=== PATIENT | female | born 1975 | race Two or more races ===

== ENCOUNTER 2021-08-14 12:33 | Inpatient (IN) | payer MEDICAID, OTHER ==
[~2021-08-14] VITALS: Ht 162.6 cm; Wt 118.8 kg
[2021-08-14 14:14] LABS: Basophils # (auto) 0.1 10 ^3/uL (0-0.2); Basophils % (auto) 1.2 % (0.0-2.0); Eosinophils # (auto) 0.1 10 ^3/uL (0-0.8); Eosinophils % (auto) 1.5 % (0.0-7.0); Hematocrit 42.3 % (36.0-46.0); Hemoglobin 13.4 g/dL (12.2-16.2); Lymphocytes # (auto) 1.3 10 ^3/uL (0.4-5.4); Mean Corpuscular Hemoglobin 26.2 pg (28.0-32.0); Mean Corpuscular Hgb Conc. 31.7 g/dL (32.0-36.0); Mean Corpuscular Volume 82.7 fL (80.0-100.0); Monocytes # (auto) 0.8 10 ^3/uL (0-1.3); Monocytes % (auto) 11.6 % (0.0-12.0); Neutrophils # (auto) 4.7 10 ^3/uL (1.6-8.6); Neutrophils % (auto) 66.7 % (37.0-80.0); Nucleated Red Blood Cells % 0.1 %; Red Blood Cells 5.11 10^6/uL (4.0-5.20); Red Cell Distribution Width 18.5 % (11.8-14.3); White Blood Cell 7.1 10^3/uL (4.4-10.8)
[2021-08-14 14:55] LABS: Calcium 8.8 mg/dL (8.5-10.1)
[2021-08-14 15:03] LABS: Albumin 2.9 g/dL (3.4-5.0); BUN/Creatinine Ratio 10.5; Bilirubin, Total 1.8 mg/dL (0.2-1.0); Total Protein 7.2 g/dL (6.4-8.2)
[2021-08-14] MEDS ORDERED: MORPHINE SULFATE INJECTION 2 MG/ML SYRG IV PRN ×2 (19:15→19:45)
[2021-08-14] MEDS ORDERED: POTASSIUM CHLORIDE 40 MEQ, LIDOCAINE 1% (LOCAL ANESTH.) 4 ML in SODIUM CHL 0.9% 250 ML IV ONE (19:15)
[2021-08-14] MEDS ORDERED: NITROGLYCERIN 0.4 MG SL TAB SL PRN ×2 (19:15→19:45)
[2021-08-14] MEDS ORDERED: ENOXAPARIN SOD 120 MG/0.8 ML SYRINGE SC ONE (19:15)
[2021-08-14] MEDS ORDERED: FUROSEMIDE 100 MG/10ML VIAL IV ONE (19:30)
[2021-08-14] MEDS ORDERED: MORPHINE SULFATE INJECTION 2 MG/ML SYRG IV ONE (19:30)
[2021-08-14] MEDS ORDERED: HYDROcodone-ACET 5/325MG TAB PO PRN (19:45)
[2021-08-14] MEDS ORDERED: ASPirin 81 mg TAB PO ONE (19:45)
[2021-08-14] MEDS ORDERED: DOCUSATE SOD 100 MG CAP PO PRN (19:45)
[2021-08-14] MEDS ORDERED: METOPROLOL SUCCINATE XL 50 MG TAB PO ONE (19:45)
[2021-08-14] MEDS ORDERED: FAMOTIDINE (10MG/ML) 2ML VL IV ONE (19:45)
[2021-08-14] MEDS ORDERED: diphenhdrAMINE HCL 50 MG/1 ML VL IV ONE (19:45)
[2021-08-14] MEDS ORDERED: ALUM & MAG HYDROX-SIMETH LIQ(MAALOX) 30 ML PO PRN (19:45)
[2021-08-14] MEDS ORDERED: BENAZEPRIL HCL 10 MG TAB PO ONE (19:45)
[2021-08-14] MEDS ORDERED: ATORVASTATIN 20 MG TAB PO ONE (19:45)
[2021-08-14] MEDS: FAMOTIDINE (10MG/ML) 2ML VL IV SCH (22:00)
[2021-08-14] MEDS: ATORVASTATIN 20 MG TAB PO SCH (22:00)
[2021-08-14] MEDS: POTASSIUM CHL 20 Meq TABLET PO SCH (22:00)
[2021-08-14] MEDS: NEOMYCIN-BACITRACIN-POLYM 15GM TOP OINT TOP SCH (22:00)
[2021-08-14 22:19] LABS: Urine Bacteria NONE SEEN /hpf (None Seen); Urine Blood Negative /uL (Negative); Urine Specific Gravity 1.007 (1.001-1.035); Urine WBC 2 /hpf (0 - 5)
[2021-08-14 22:30] LABS: Amphetamine Screen, Urine NEGATIVE (NEGATIVE); Barbiturate Scree,Urine NEGATIVE (NEGATIVE); Benzodiazephine Screen, Urine NEGATIVE (NEGATIVE); Cannabinoid Screen, Urine NEGATIVE (NEGATIVE); Cocaine Screen, Urine NEGATIVE (NEGATIVE); Opiate Scree,Urine NEGATIVE (NEGATIVE); Phencyclidine Screen, Urine NEGATIVE (NEGATIVE)
[2021-08-14 23:26] VITALS: BP 107/69
[2021-08-14] MEDS: MORPHINE SULFATE INJECTION 2 MG/ML SYRG IV PRN (23:50)
[2021-08-15] VITALS: BP 107/69
[2021-08-15] MEDS ORDERED: CARV6.2551 PO (03:02)
[2021-08-15] MEDS ORDERED: FURO40TA4 PO (03:02)
[2021-08-15] MEDS ORDERED: LISI-275 PO (03:02)
[2021-08-15] MEDS ORDERED: ATOR20TA50 PO (03:02)
[2021-08-15] MEDS: ONDANSETRON HCL 4 MG/2 ML VIAL IV PRN (04:59)
[2021-08-15 05:00] VITALS: BP 123/68
[2021-08-15 05:43] LABS: Basophils # (auto) 0.1 10 ^3/uL (0-0.2); Hemoglobin 13.7 g/dL (12.2-16.2); Lymphocytes # (auto) 1.8 10 ^3/uL (0.4-5.4)
[2021-08-15 05:46] LABS: Basophils % (auto) 1.5 % (0.0-2.0); Eosinophils # (auto) 0 10 ^3/uL (0-0.8); Eosinophils % (auto) 0.7 % (0.0-7.0); Hematocrit 43.5 % (36.0-46.0); Lymphocytes % (auto) 25.2 % (10.0-50.0); Mean Corpuscular Hemoglobin 26.3 pg (28.0-32.0); Mean Corpuscular Hgb Conc. 31.4 g/dL (32.0-36.0); Mean Corpuscular Volume 83.8 fL (80.0-100.0); Monocytes % (auto) 14.3 % (0.0-12.0); Neutrophils % (auto) 58.3 % (37.0-80.0); Nucleated Red Blood Cells % 0.4 %; Red Blood Cells 5.19 10^6/uL (4.0-5.20); Red Cell Distribution Width 18.5 % (11.8-14.3)
[2021-08-15 05:51] LABS: Albumin 2.7 g/dL (3.4-5.0); Calcium 8.1 mg/dL (8.5-10.1)
[2021-08-15 05:52] LABS: INR 1.6 (0.9-1.15); Partial Thromboplastin Time 28.5 sec (23.6-33.0)
[2021-08-15 05:56] LABS: BUN/Creatinine Ratio 10.6; Bilirubin, Total 2.4 mg/dL (0.2-1.0); Magnesium 2.3 mg/dL (1.6-2.6); Phosphorus 3.4 mg/dL (2.5-4.90); Total Protein 7.4 g/dL (6.4-8.2); Uric Acid 10.4 mg/dL (2.6-6.0)
[2021-08-15] MEDS: FUROSEMIDE 40 MG/4 ML VIAL IV SCH ×2 (06:22→17:53)
[2021-08-15 08:43] VITALS: BP 93/57
[2021-08-15] MEDS: POTASSIUM CHL 20 Meq TABLET PO SCH ×2 (10:32→21:06)
[2021-08-15] MEDS: FAMOTIDINE (10MG/ML) 2ML VL IV SCH ×2 (10:32→21:05)
[2021-08-15] MEDS: ASPirin 81 mg TAB PO SCH (10:32)
[2021-08-15] MEDS: BENAZEPRIL HCL 10 MG TAB PO SCH (10:32)
[2021-08-15] MEDS: NEOMYCIN-BACITRACIN-POLYM 15GM TOP OINT TOP SCH ×2 (11:06→21:06)
[2021-08-15 13:00] VITALS: BP 113/89
[2021-08-15 16:42] VITALS: BP 99/76
[2021-08-15] MEDS: MORPHINE SULFATE INJECTION 2 MG/ML SYRG IV PRN ×2 (17:02→23:23)
[2021-08-15] MEDS: LORazepam 0.5 MG TAB PO PRN (17:27)
[2021-08-15] MEDS: ATORVASTATIN 20 MG TAB PO SCH (21:06)
[2021-08-15 22:00] VITALS: BP 101/68
[2021-08-16 05:00] VITALS: BP 125/76
[2021-08-16] MEDS: FUROSEMIDE 40 MG/4 ML VIAL IV SCH ×2 (06:10→18:04)
[2021-08-16] MEDS: LORazepam 0.5 MG TAB PO PRN ×2 (08:58→21:10)
[2021-08-16] MEDS: MORPHINE SULFATE INJECTION 2 MG/ML SYRG IV PRN (08:58)
[2021-08-16] MEDS: POTASSIUM CHL 20 Meq TABLET PO SCH ×2 (08:59→22:50)
[2021-08-16] MEDS: ASPirin 81 mg TAB PO SCH (08:59)
[2021-08-16] MEDS: SACUBITRIL-VALSARTAN 24mg/26mg TAB PO SCH ×2 (08:59→22:50)
[2021-08-16] MEDS: BENAZEPRIL HCL 10 MG TAB PO SCH (08:59)
[2021-08-16 09:00] VITALS: BP 130/93
[2021-08-16] MEDS: NEOMYCIN-BACITRACIN-POLYM 15GM TOP OINT TOP SCH ×2 (09:07→22:50)
[2021-08-16] MEDS: FAMOTIDINE (10MG/ML) 2ML VL IV SCH ×2 (10:55→22:49)
[2021-08-16 13:00] VITALS: BP 127/90
[2021-08-16 16:59] VITALS: BP 146/78
[2021-08-16 22:00] VITALS: BP 96/69
[2021-08-16] MEDS: ATORVASTATIN 20 MG TAB PO SCH (22:50)
[2021-08-17] VITALS (7 sets, daily range): BP systolic 91–137; BP diastolic 60–79
[2021-08-17] MEDS: FUROSEMIDE 40 MG/4 ML VIAL IV SCH ×2 (06:19→17:28)
[2021-08-17] MEDS: POTASSIUM CHL 20 Meq TABLET PO SCH ×2 (09:47→21:09)
[2021-08-17] MEDS: SACUBITRIL-VALSARTAN 24mg/26mg TAB PO SCH ×2 (09:47→21:55)
[2021-08-17] MEDS: ASPirin 81 mg TAB PO SCH (09:47)
[2021-08-17] MEDS: BENAZEPRIL HCL 10 MG TAB PO SCH (09:48)
[2021-08-17] MEDS: FAMOTIDINE (10MG/ML) 2ML VL IV SCH ×2 (09:48→21:09)
[2021-08-17] MEDS: NEOMYCIN-BACITRACIN-POLYM 15GM TOP OINT TOP SCH ×2 (09:50→21:09)
[2021-08-17 09:57] LABS: Urine Bacteria NONE SEEN /hpf (None Seen); Urine Blood Negative /uL (Negative); Urine Specific Gravity 1.003 (1.001-1.035); Urine WBC 2 /hpf (0 - 5)
[2021-08-17] MEDS ORDERED: IOHEXOL 350 MG/ML 100ML IJ ONE (10:38)
[2021-08-17] MEDS ORDERED: LIDOCAINE 2%HCL (LOCAL ANESTH.) INJ 20ML MDV ONE (10:38)
[2021-08-17] MEDS ORDERED: SODIUM CHL 0.9% 0 ML ONE (10:52)
[2021-08-17] MEDS ORDERED: MIDAZOLAM HCL 2MG/2ML 2ml VIAL (1mg/ml) ONE (10:52)
[2021-08-17] MEDS ORDERED: fentaNYL CITRATE 100 MCG/2 ML VL ONE (10:52)
[2021-08-17] MEDS ORDERED: ANGIOMAX 250 MG VIAL IV ONE (10:52)
[2021-08-17] MEDS ORDERED: HYDROcodone-ACET 5/325MG TAB PO PRN (11:45)
[2021-08-17] MEDS ORDERED: ACETAMINOPHEN 500 MG TAB PO PRN (11:45)
[2021-08-17] MEDS: diphenhdrAMINE HCL 50 MG/1 ML VL IV PRN (20:21)
[2021-08-17] MEDS ORDERED: NEOMYCIN-BACITRACIN-POLYM 15GM TOP OINT TOP ONE (20:49)
[2021-08-17] MEDS: LORazepam 0.5 MG TAB PO PRN ×2 (21:09→21:47)
[2021-08-17] MEDS: ATORVASTATIN 20 MG TAB PO SCH (21:09)
[2021-08-17] MEDS: CARVEDILOL 12.5 MG TAB PO SCH (21:54)
[2021-08-18 05:00] VITALS: BP 103/69
[2021-08-18] MEDS: FUROSEMIDE 40 MG/4 ML VIAL IV SCH ×2 (06:04→17:26)
[2021-08-18] MEDS: diphenhdrAMINE HCL 50 MG/1 ML VL IV PRN (06:05)
[2021-08-18 09:00] VITALS: BP 105/77
[2021-08-18] MEDS: SACUBITRIL-VALSARTAN 24mg/26mg TAB PO SCH ×2 (10:14→21:06)
[2021-08-18] MEDS: ASPirin 81 mg TAB PO SCH (10:14)
[2021-08-18] MEDS: CARVEDILOL 12.5 MG TAB PO SCH ×2 (10:15→21:07)
[2021-08-18] MEDS: FAMOTIDINE (10MG/ML) 2ML VL IV SCH ×2 (10:15→21:07)
[2021-08-18] MEDS: NEOMYCIN-BACITRACIN-POLYM 15GM TOP OINT TOP SCH ×2 (10:15→21:17)
[2021-08-18 11:44] LABS: BUN/Creatinine Ratio 15.9; Calcium 8.1 mg/dL (8.5-10.1); Potassium 3.9 mmol/L (3.5-5.1)
[2021-08-18] MEDS: POTASSIUM CHL 20 Meq TABLET PO SCH ×2 (12:15→21:07)
[2021-08-18 13:00] VITALS: BP 108/80
[2021-08-18 16:33] VITALS: BP 100/57
[2021-08-18] MEDS: ATORVASTATIN 20 MG TAB PO SCH (21:06)
[2021-08-18] MEDS: LORazepam 0.5 MG TAB PO PRN (21:06)
[2021-08-18] MEDS: ONDANSETRON HCL 4 MG/2 ML VIAL IV PRN (21:08)
[2021-08-18 22:00] VITALS: BP 103/88
[2021-08-19 05:00] VITALS: BP 95/69
[2021-08-19] MEDS: FUROSEMIDE 40 MG/4 ML VIAL IV SCH ×2 (06:00→18:00)
[2021-08-19 09:19] VITALS: BP 99/72
[2021-08-19] MEDS: CARVEDILOL 3.125 MG TAB PO SCH ×2 (09:30→22:00)
[2021-08-19] MEDS: ASPirin 81 mg TAB PO SCH (09:34)
[2021-08-19] MEDS: FAMOTIDINE (10MG/ML) 2ML VL IV SCH ×2 (09:34→22:02)
[2021-08-19] MEDS: SACUBITRIL-VALSARTAN 24mg/26mg TAB PO SCH ×2 (09:34→22:00)
[2021-08-19] MEDS: POTASSIUM CHL 20 Meq TABLET PO SCH (09:34)
[2021-08-19] MEDS: NEOMYCIN-BACITRACIN-POLYM 15GM TOP OINT TOP SCH ×2 (11:42→22:00)
[2021-08-19 12:30] VITALS: BP 94/69
[2021-08-19 16:35] VITALS: BP 106/80
[2021-08-19] MEDS: ATORVASTATIN 20 MG TAB PO SCH (22:01)
[2021-08-19] MEDS: diphenhdrAMINE HCL 50 MG/1 ML VL IV PRN (22:03)
[2021-08-19 22:31] VITALS: BP 101/68
[2021-08-20] MEDS: LORazepam 0.5 MG TAB PO PRN (00:10)
[2021-08-20 05:00] VITALS: BP 117/72
[2021-08-20] MEDS: FUROSEMIDE 40 MG/4 ML VIAL IV SCH (05:48)
[2021-08-20 09:00] VITALS: BP 114/74
[2021-08-20] MEDS: ASPirin 81 mg TAB PO SCH (09:40)
[2021-08-20] MEDS: FAMOTIDINE (10MG/ML) 2ML VL IV SCH (09:40)
[2021-08-20] MEDS: NEOMYCIN-BACITRACIN-POLYM 15GM TOP OINT TOP SCH (09:41)
[2021-08-20] MEDS: SACUBITRIL-VALSARTAN 24mg/26mg TAB PO SCH (09:41)
[2021-08-20] MEDS: CARVEDILOL 3.125 MG TAB PO SCH (09:41)
[2021-08-20 12:18] LABS: Hepatitis A Ab IgM Negative
[2021-08-20 13:00] VITALS: BP 91/66
[2021-08-20 13:18] LABS: Hepatitis C Antibody Negative (Negative)
[2021-08-20 13:19] LABS: Hepatitis B Core IgM Negative
== END 2021-08-20 14:33 | disposition home or self-care (01) | DRG 190 ==
LOC: ER 12:33 → TELE 19:10 → TELE-CENTR 23:26
PROVIDERS: ADMIT Hospitalist; ATTEND Family Medicine
PROC: 4A023N7 Measurement of Cardiac Sampling and Pressure, Left Heart, Percutaneous Approach (ICD-10-PCS; principal; 2021-08-17)
PROC: B2111ZZ Fluoroscopy of Multiple Coronary Arteries using Low Osmolar Contrast (ICD-10-PCS; 2021-08-17)
PROC: B2151ZZ Fluoroscopy of Left Heart using Low Osmolar Contrast (ICD-10-PCS; 2021-08-17)
DX: I21.4 Non-ST elevation (NSTEMI) myocardial infarction (principal); J96.01 Acute respiratory failure with hypoxia; I50.23 Acute on chronic systolic (congestive) heart failure; E66.01 Morbid (severe) obesity due to excess calories; E87.6 Hypokalemia; E78.00 Pure hypercholesterolemia, unspecified; F10.10 Alcohol abuse, uncomplicated; F15.10 Other stimulant abuse, uncomplicated; F41.9 Anxiety disorder, unspecified; Z20.822 Contact with and (suspected) exposure to COVID-19; I13.0 Hypertensive heart and chronic kidney disease with heart failure and stage 1 through stage 4 chronic kidney disease, or unspecified chronic kidney disease; I42.7 Cardiomyopathy due to drug and external agent; N18.2 Chronic kidney disease, stage 2 (mild); Z91.19 Patient's noncompliance with other medical treatment and regimen; Z68.42 Body mass index [BMI] 45.0-49.9, adult
CPT/HCPCS: 36415; 36600; 71045; 76705; 80048; 80053; 80061; 80074; 80307; 81001; 81025; 82306; 82805; 83036; 83735; 83880; 84100; 84443; 84484; 84550; 85025; 85379; 85610; 85730; 87040; 87086; 87426; 93005; 93306; 93458; 93970; 96365; 96372; 96375; 97116; 97162; 97530; 99152; G0378; J2001; J2250; J2405; J3490

== ENCOUNTER 2021-10-01 22:14 | Emergency (ER) | payer MEDICAID ==
[~2021-10-01] VITALS: Ht 165.1 cm; Wt 113.4 kg
[~2021-10-01 22:14] MED LIST: ATOR20TA50 PO; CARV6.2551 PO; FURO40TA4 PO; LISI-275 PO
[2021-10-02] MEDS ORDERED: CEPH-509 PO (01:29)
[2021-10-02] MEDS ORDERED: CLIN300C8 PO (01:29)
[2021-10-02 02:16] LABS: Basophils # (auto) 0 10 ^3/uL (0-0.2); Basophils % (auto) 0.3 % (0.0-2.0); Eosinophils # (auto) 0.2 10 ^3/uL (0-0.8); Hemoglobin 12.5 g/dL (12.2-16.2); Mean Corpuscular Volume 81.2 fL (80.0-100.0); Nucleated Red Blood Cells % 0.1 %
[2021-10-02 02:20] LABS: Eosinophils % (auto) 1.2 % (0.0-7.0); Hematocrit 40.1 % (36.0-46.0); Lymphocytes # (auto) 0.9 10 ^3/uL (0.4-5.4); Lymphocytes % (auto) 6.1 % (10.0-50.0); Mean Corpuscular Hemoglobin 25.4 pg (28.0-32.0); Mean Corpuscular Hgb Conc. 31.2 g/dL (32.0-36.0); Monocytes # (auto) 0.6 10 ^3/uL (0-1.3); Monocytes % (auto) 4.5 % (0.0-12.0); Neutrophils # (auto) 12.3 10 ^3/uL (1.6-8.6); Neutrophils % (auto) 87.9 % (37.0-80.0); Red Blood Cells 4.93 10^6/uL (4.0-5.20)
[2021-10-02 02:34] LABS: Potassium 3.4 mmol/L (3.5-5.1)
[2021-10-02 02:37] LABS: Red Cell Distribution Width 21.2 % (11.8-14.3)
[2021-10-02 02:38] LABS: Albumin 3.2 g/dL (3.4-5.0); Bilirubin, Total 2.6 mg/dL (0.2-1.0); Calcium 8.9 mg/dL (8.5-10.1)
[2021-10-02 05:57] VITALS: BP 117/85
== END 2021-10-02 05:57 | disposition home or self-care (01) ==
LOC: ER 22:16
DX: L03.116 Cellulitis of left lower limb (principal); F10.129 Alcohol abuse with intoxication, unspecified; Y90.9 Presence of alcohol in blood, level not specified; Z88.0 Allergy status to penicillin
CPT/HCPCS: 36415; 80053; 83605; 85025; 87040; 93971

== ENCOUNTER 2022-10-06 10:19 | Inpatient (IN) | payer MEDICAID ==
[~2022-10-06] VITALS: Ht 167.6 cm; Wt 109.5 kg
[~2022-10-06 10:19] MED LIST changes: +CEPH-509 PO; +CLIN300C8 PO
[2022-10-06 10:33] LABS: Basophils # (auto) 0.1 10 ^3/uL (0-0.2); Basophils % (auto) 0.7 % (0.0-2.0); Eosinophils # (auto) 0.1 10 ^3/uL (0-0.8); Hemoglobin 13.3 g/dL (12.2-16.2); Lymphocytes # (auto) 1.2 10 ^3/uL (0.4-5.4); Mean Corpuscular Hemoglobin 28.7 pg (28.0-32.0); Mean Corpuscular Hgb Conc. 32.5 g/dL (32.0-36.0); Mean Corpuscular Volume 88.3 fL (80.0-100.0); Monocytes # (auto) 0.6 10 ^3/uL (0-1.3); Monocytes % (auto) 4.5 % (0.0-12.0); Neutrophils # (auto) 11.1 10 ^3/uL (1.6-8.6); Neutrophils % (auto) 84.8 % (37.0-80.0); Nucleated Red Blood Cells % 0.1 %; Red Blood Cells 4.65 10^6/uL (4.0-5.20); Red Cell Distribution Width 16.6 % (11.8-14.3); White Blood Cell 13.1 10^3/uL (4.4-10.8)
[2022-10-06 10:51] LABS: Albumin 3.1 g/dL (3.4-5.0); Calcium 9.2 mg/dL (8.5-10.1); Potassium 4.8 mmol/L (3.5-5.1)
[2022-10-06 10:55] LABS: BUN/Creatinine Ratio 14.4
[2022-10-06 10:57] LABS: Total Protein 7.7 g/dL (6.4-8.2)
[2022-10-06 11:06] LABS: Urine Bacteria NONE SEEN /hpf (None Seen); Urine Blood Negative /uL (Negative); Urine Mucus FEW (None Seen); Urine WBC 53 /hpf (0 - 5)
[2022-10-06] MEDS ORDERED: ASPirin 325 MG TAB PO ONE (11:15)
[2022-10-06] MEDS ORDERED: NITROGLYCERIN 0.4 MG SL TAB SL ONE (11:30)
[2022-10-06 11:41] LABS: Alcohol, Urine < 3.0 mg/dL (0-10); Amphetamine Screen, Urine NEGATIVE (NEGATIVE); Barbiturate Scree,Urine NEGATIVE (NEGATIVE); Benzodiazephine Screen, Urine NEGATIVE (NEGATIVE); Cannabinoid Screen, Urine NEGATIVE (NEGATIVE); Cocaine Screen, Urine NEGATIVE (NEGATIVE); Opiate Scree,Urine NEGATIVE (NEGATIVE); Phencyclidine Screen, Urine NEGATIVE (NEGATIVE)
[2022-10-06] MEDS: MORPHINE SULFATE 4 MG/ML SYR/VIAL IV ONE ×2 (12:55→13:06)
[2022-10-06] MEDS ORDERED: MORPHINE SULFATE 4 MG/ML SYR/VIAL ONE (13:05)
[2022-10-06] MEDS ORDERED: NITROGLYCERIN 50MG/250ML 250 ML IV ONE (13:30)
[2022-10-06] MEDS ORDERED: METOPROLOL TARTRATE 1MG/1ML-5ML VIAL IV ONE (13:45)
[2022-10-06] MEDS ORDERED: ATORVASTATIN 20 MG TAB PO ONE (14:15)
[2022-10-06] MEDS ORDERED: HEPARIN SODIUM (PORCINE) 5000 UNITS/ML 1ML VIAL IV ONE (14:15)
[2022-10-06] MEDS ORDERED: METOPROLOL TARTRATE 50 MG TAB PO ONE (14:15)
[2022-10-06] MEDS ORDERED: CLOPIDOGREL BISULFATE 75 MG TAB PO ONE (14:15)
[2022-10-06] MEDS ORDERED: SACU1TAB PO (17:12)
[2022-10-06] MEDS ORDERED: POTA-167 PO (17:12)
[2022-10-06] MEDS ORDERED: HEPARIN DRIP/D5W 100UNITS/ML 250 ML IV SCH ×2 (17:15→17:45)
[2022-10-06] MEDS ORDERED: FUROSEMIDE 20 MG/2 ML VIAL IV ONE (17:15)
[2022-10-06] MEDS ORDERED: ONDANSETRON HCL 4 MG/2 ML VIAL IV ONE (17:15)
[2022-10-06] MEDS ORDERED: IOHEXOL 350 MG/ML 100ML IJ ONE (17:26)
[2022-10-06] MEDS ORDERED: NITROGLYCERIN 0.4 MG SL TAB SL PRN (18:00)
[2022-10-06] MEDS ORDERED: MORPHINE SULFATE INJ 2 MG/ml SYRG IV PRN (18:00)
[2022-10-06] MEDS ORDERED: HYDROcodone-ACET 5/325MG TAB PO PRN (18:00)
[2022-10-06 18:01] LABS: Partial Thromboplastin Time 28.2 sec (24.6-33.4)
[2022-10-06 18:29] LABS: Cholesterol 202 mg/dL (< 200)
[2022-10-06 18:31] LABS: HDL Cholesterol 61 mg/dL (40-59); LDL Cholesterol 131 mg/dL (< 100); Triglycerides 94 mg/dL (< 150)
[2022-10-06] MEDS: ONDANSETRON HCL 4 MG/2 ML VIAL IV PRN (20:42)
[2022-10-06] MEDS: MORPHINE SULFATE INJ 2 MG/ml SYRG IV PRN (20:46)
[2022-10-06] MEDS: AZTREONAM 1GM INJ 0.5 GM in D5W 5% 50 ML IV SCH ×2 (20:59→22:00)
[2022-10-06] MEDS ORDERED: TEMAZEPAM 15 MG CAP PO ONE (21:15)
[2022-10-06] MEDS: CARVEDILOL 3.125 MG TAB PO SCH (22:00)
[2022-10-06] MEDS ORDERED: SACUBITRIL-VALSARTAN 24mg/26mg TAB PO SCH (22:00)
[2022-10-07 01:06] LABS: INR 1.04 (0.9-1.15); Partial Thromboplastin Time 30.9 sec (24.6-33.4)
[2022-10-07] MEDS ORDERED: HEPARIN DRIP/D5W 100UNITS/ML 250 ML IV SCH ×2 (02:45→10:00)
[2022-10-07 05:38] LABS: Basophils # (auto) 0 10 ^3/uL (0-0.2); Basophils % (auto) 0.8 % (0.0-2.0); Eosinophils # (auto) 0.3 10 ^3/uL (0-0.8); Eosinophils % (auto) 5.8 % (0.0-7.0); Hematocrit 38.8 % (36.0-46.0); Hemoglobin 12.2 g/dL (12.2-16.2); Lymphocytes # (auto) 1.7 10 ^3/uL (0.4-5.4); Lymphocytes % (auto) 28.3 % (10.0-50.0); Mean Corpuscular Hemoglobin 28.2 pg (28.0-32.0); Mean Corpuscular Hgb Conc. 31.5 g/dL (32.0-36.0); Mean Corpuscular Volume 89.6 fL (80.0-100.0); Monocytes # (auto) 0.4 10 ^3/uL (0-1.3); Monocytes % (auto) 6.1 % (0.0-12.0); Neutrophils # (auto) 3.5 10 ^3/uL (1.6-8.6); Nucleated Red Blood Cells % 0.1 %; Red Blood Cells 4.33 10^6/uL (4.0-5.20); Red Cell Distribution Width 16.7 % (11.8-14.3)
[2022-10-07 06:02] LABS: Albumin 2.8 g/dL (3.4-5.0); BUN/Creatinine Ratio 14.6; Bilirubin, Total 0.8 mg/dL (0.2-1.0); Calcium 8.7 mg/dL (8.5-10.1); Potassium 4.2 mmol/L (3.5-5.1); Total Protein 6.9 g/dL (6.4-8.2)
[2022-10-07] MEDS: AZTREONAM 1GM INJ 0.5 GM in D5W 5% 50 ML IV SCH (07:24)
[2022-10-07 08:16] LABS: INR 1.04 (0.9-1.15); Partial Thromboplastin Time 33.3 sec (24.6-33.4)
[2022-10-07] MEDS ORDERED: FUROSEMIDE 20 MG/2 ML VIAL IV SCH ×2 (09:30→10:00)
[2022-10-07] MEDS ORDERED: HEPARIN SODIUM (PORCINE) 5000 UNITS/ML 1ML VIAL IV ONE (10:00)
[2022-10-07] MEDS ORDERED: LISINOPRIL 5 MG TAB PO SCH (10:00)
[2022-10-07] MEDS ORDERED: HEPARIN SODIUM (PORCINE) 5000 UNITS/ML 1ML VIAL ONE (10:21)
[2022-10-07] MEDS: FUROSEMIDE 40 MG/4 ML VIAL IV SCH (10:33)
[2022-10-07] MEDS: ASPirin 81 mg TAB PO SCH (10:36)
[2022-10-07] MEDS: CARVEDILOL 3.125 MG TAB PO SCH ×2 (10:36→21:47)
[2022-10-07] MEDS: CIPROFLOXACIN HCL 500 MG TAB PO SCH (15:42)
[2022-10-07] MEDS: ONDANSETRON HCL 4 MG/2 ML VIAL IV PRN (21:04)
[2022-10-07] MEDS: MORPHINE SULFATE INJ 2 MG/ml SYRG IV PRN (21:04)
[2022-10-07] MEDS ORDERED: ATORVASTATIN 20 MG TAB PO SCH (22:00)
[2022-10-07 22:30] VITALS: BP 109/77
[2022-10-08 00:19] VITALS: BP 109/77
[2022-10-08] MEDS ORDERED: TEMAZEPAM 15 MG CAP PO ONE (00:30)
[2022-10-08] MEDS: CIPROFLOXACIN HCL 500 MG TAB PO SCH ×2 (03:22→16:08)
[2022-10-08 05:00] VITALS: BP 109/65
[2022-10-08 06:14] LABS: Basophils # (auto) 0.1 10 ^3/uL (0-0.2); Basophils % (auto) 1.2 % (0.0-2.0); Eosinophils # (auto) 0.3 10 ^3/uL (0-0.8); Eosinophils % (auto) 4.7 % (0.0-7.0); Hematocrit 37.7 % (36.0-46.0); Hemoglobin 11.7 g/dL (12.2-16.2); Lymphocytes # (auto) 1.2 10 ^3/uL (0.4-5.4); Lymphocytes % (auto) 21.7 % (10.0-50.0); Mean Corpuscular Hemoglobin 28.1 pg (28.0-32.0); Mean Corpuscular Hgb Conc. 31.1 g/dL (32.0-36.0); Mean Corpuscular Volume 90.4 fL (80.0-100.0); Monocytes # (auto) 0.6 10 ^3/uL (0-1.3); Monocytes % (auto) 10.7 % (0.0-12.0); Neutrophils # (auto) 3.5 10 ^3/uL (1.6-8.6); Neutrophils % (auto) 61.7 % (37.0-80.0); Nucleated Red Blood Cells % 0.2 %; Red Blood Cells 4.17 10^6/uL (4.0-5.20); Red Cell Distribution Width 16.8 % (11.8-14.3); White Blood Cell 5.6 10^3/uL (4.4-10.8)
[2022-10-08 06:34] LABS: BUN/Creatinine Ratio 23.1; Magnesium 2.3 mg/dL (1.6-2.6); Potassium 4.3 mmol/L (3.5-5.1)
[2022-10-08 08:00] VITALS: BP 98/65
[2022-10-08] MEDS ORDERED: FURO1TAB33 PO (10:43)
[2022-10-08] MEDS ORDERED: RANO500T2 PO (10:43)
[2022-10-08] MEDS ORDERED: CAR3125T PO (10:43)
[2022-10-08] MEDS: FUROSEMIDE 40 MG/4 ML VIAL IV SCH (11:33)
[2022-10-08] MEDS: CARVEDILOL 3.125 MG TAB PO SCH (11:34)
[2022-10-08] MEDS: ASPirin 81 mg TAB PO SCH (11:35)
[2022-10-08 12:00] VITALS: BP 102/60
[2022-10-08 15:31] VITALS: BP 98/65
[2022-10-08 16:00] VITALS: BP 109/73
== END 2022-10-08 17:47 | disposition home or self-care (01) | DRG 190 ==
LOC: ER 10:19 → TELE 18:00 → TELE-CENTR 10-07 21:43
PROVIDERS: ADMIT Registered Nurse; ATTEND Nurse Practitioner Acute Care
DX: I21.4 Non-ST elevation (NSTEMI) myocardial infarction (principal); I50.23 Acute on chronic systolic (congestive) heart failure; I16.9 Hypertensive crisis, unspecified; I42.8 Other cardiomyopathies; E78.5 Hyperlipidemia, unspecified; E66.01 Morbid (severe) obesity due to excess calories; Z20.822 Contact with and (suspected) exposure to COVID-19; N39.0 Urinary tract infection, site not specified; Z88.0 Allergy status to penicillin; Z95.810 Presence of automatic (implantable) cardiac defibrillator; Z79.899 Other long term (current) drug therapy; Z83.3 Family history of diabetes mellitus; Z82.49 Family history of ischemic heart disease and other diseases of the circulatory system; Z90.710 Acquired absence of both cervix and uterus; Z68.39 Body mass index [BMI] 39.0-39.9, adult
CPT/HCPCS: 36415; 71046; 71275; 80048; 80053; 80061; 80307; 81001; 83036; 83735; 83880; 84443; 84484; 84702; 85025; 85610; 85730; 87040; 87086; 87426; 93005; 93306; 93970; 96365; 96366; 96367; 96375; 96376; G0378; J2405; J7060

== ENCOUNTER 2022-11-17 17:50 | Emergency (ER) | payer MEDICAID ==
[~2022-11-17] VITALS: Ht 165.1 cm; Wt 104.0 kg
[~2022-11-17 17:50] MED LIST changes: +CAR3125T PO; +FURO1TAB33 PO; +POTA-167 PO; +RANO500T2 PO; +SACU1TAB PO
[2022-11-17 18:31] VITALS: BP 115/78
[2022-11-17 21:19] LABS: Basophils # (auto) 0.1 10 ^3/uL (0-0.2); Eosinophils # (auto) 0.4 10 ^3/uL (0-0.8); Eosinophils % (auto) 3.3 % (0.0-7.0); Hematocrit 36.9 % (36.0-46.0); Hemoglobin 12.5 g/dL (12.2-16.2); Lymphocytes # (auto) 1.4 10 ^3/uL (0.4-5.4); Lymphocytes % (auto) 12.2 % (10.0-50.0); Mean Corpuscular Hemoglobin 29.8 pg (28.0-32.0); Mean Corpuscular Hgb Conc. 33.9 g/dL (32.0-36.0); Mean Corpuscular Volume 87.8 fL (80.0-100.0); Monocytes # (auto) 0.9 10 ^3/uL (0-1.3); Monocytes % (auto) 7.9 % (0.0-12.0); Neutrophils # (auto) 8.9 10 ^3/uL (1.6-8.6); Neutrophils % (auto) 75.6 % (37.0-80.0); Nucleated Red Blood Cells % 0.2 %; White Blood Cell 11.7 10^3/uL (4.4-10.8)
[2022-11-17 21:32] LABS: INR 0.99 (0.9-1.15); Partial Thromboplastin Time 25.6 sec (24.6-33.4)
[2022-11-17 21:38] LABS: Albumin 3.1 g/dL (3.4-5.0); BUN/Creatinine Ratio 11.2; Potassium 3.1 mmol/L (3.5-5.1)
[2022-11-17 21:41] LABS: Bilirubin, Total 0.4 mg/dL (0.2-1.0); Total Protein 8.3 g/dL (6.4-8.2)
== END 2022-11-17 22:57 | disposition home or self-care (01) ==
LOC: ER 17:50
DX: R10.30 Lower abdominal pain, unspecified (principal); I11.0 Hypertensive heart disease with heart failure; I50.9 Heart failure, unspecified; I25.2 Old myocardial infarction; E78.5 Hyperlipidemia, unspecified; Z95.0 Presence of cardiac pacemaker; Z79.2 Long term (current) use of antibiotics; Z79.899 Other long term (current) drug therapy; Z88.0 Allergy status to penicillin
CPT/HCPCS: 36415; 74176; 80053; 81003; 83690; 85025; 85610; 85730

== ENCOUNTER 2023-03-10 12:02 | Inpatient (IN) | payer MEDICAID ==
[~2023-03-10] VITALS: Ht 165.1 cm; Wt 103.9 kg
[~2023-03-10 12:02] MED LIST changes: +CLIN300C70 PO; -CLIN300C8 PO; -POTA-167 PO; +POTA-211 PO
[2023-03-10] MEDS ORDERED: ASPirin 325 MG TAB PO ONE (12:30)
[2023-03-10] MEDS ORDERED: FUROSEMIDE 40 MG/4 ML VIAL IV ONE (12:30)
[2023-03-10 13:09] LABS: Basophils # (auto) 0.1 10 ^3/uL (0-0.2); Eosinophils # (auto) 0.1 10 ^3/uL (0-0.8); Mean Corpuscular Hemoglobin 23.7 pg (28.0-32.0)
[2023-03-10 13:11] LABS: Basophils % (auto) 0.6 % (0.0-2.0); Eosinophils % (auto) 1.3 % (0.0-7.0); Hematocrit 29.7 % (36.0-46.0); Hemoglobin 9.4 g/dL (12.2-16.2); Lymphocytes # (auto) 1.1 10 ^3/uL (0.4-5.4); Lymphocytes % (auto) 12.3 % (10.0-50.0); Mean Corpuscular Hgb Conc. 31.6 g/dL (32.0-36.0); Mean Corpuscular Volume 75.1 fL (80.0-100.0); Monocytes # (auto) 0.8 10 ^3/uL (0-1.3); Monocytes % (auto) 8.1 % (0.0-12.0); Neutrophils # (auto) 7.2 10 ^3/uL (1.6-8.6); Neutrophils % (auto) 77.7 % (37.0-80.0); Nucleated Red Blood Cells % 0.2 %; Red Blood Cells 3.95 10^6/uL (4.0-5.20); Red Cell Distribution Width 18.3 % (11.8-14.3); White Blood Cell 9.3 10^3/uL (4.4-10.8)
[2023-03-10 13:19] LABS: Calcium 8.3 mg/dL (8.5-10.1); Potassium 3.5 mmol/L (3.5-5.1)
[2023-03-10 13:28] LABS: BUN/Creatinine Ratio 10.8 (10.0-20.0); Bilirubin, Total 0.7 mg/dL (0.2-1.0); Total Protein 7.1 g/dL (6.4-8.2)
[2023-03-10] MEDS ORDERED: MORPHINE SULFATE INJ 2 MG/ml SYRG IV PRN (13:45)
[2023-03-10] MEDS ORDERED: NITROGLYCERIN 0.4 MG SL TAB SL PRN (13:45)
[2023-03-10] MEDS ORDERED: LACTULOSE 20Gm/30ML SOLN PO ONE (13:45)
[2023-03-10] MEDS ORDERED: HYDROcodone-ACET 5/325MG TAB PO ONE (14:15)
[2023-03-10] MEDS ORDERED: ALBUTEROL SULF 2.5 MG/0.5ML(0.5%) NEB SOLN NEB PRN (14:15)
[2023-03-10] MEDS ORDERED: IPRATROPIUM BROM 0.5 MG/2.5ML INH SOL NEB PRN (14:15)
[2023-03-10] MEDS ORDERED: hydrALAZINE HCL 20 MG/ML VL IV PRN (14:15)
[2023-03-10] MEDS ORDERED: ONDANSETRON HCL 4 MG/2 ML VIAL IV ONE (14:15)
[2023-03-10] MEDS ORDERED: ENOXAPARIN SOD 120 MG/0.8 ML SYRINGE SC ONE (14:30)
[2023-03-10] MEDS ORDERED: metOLazone 5 MG TAB PO ONE (16:30)
[2023-03-10 17:03] LABS: Urine Bacteria NONE SEEN /hpf (None Seen); Urine Blood Negative /uL (Negative); Urine Specific Gravity 1.017 (1.001-1.035); Urine WBC 2 /hpf (0 - 5)
[2023-03-10 17:06] LABS: Alcohol, Urine < 3.0 mg/dL (0-10); Amphetamine Screen, Urine NEGATIVE (NEGATIVE); Barbiturate Scree,Urine NEGATIVE (NEGATIVE); Benzodiazephine Screen, Urine NEGATIVE (NEGATIVE); Cannabinoid Screen, Urine NEGATIVE (NEGATIVE); Cocaine Screen, Urine NEGATIVE (NEGATIVE); Opiate Scree,Urine NEGATIVE (NEGATIVE); Phencyclidine Screen, Urine NEGATIVE (NEGATIVE)
[2023-03-10] MEDS ORDERED: MORPHINE SULFATE 4 MG/ML SYR/VIAL IV ONE (21:15)
[2023-03-10] MEDS ORDERED: CARVEDILOL 3.125 MG TAB PO SCH (22:00)
[2023-03-10] MEDS ORDERED: RANOLAZINE ER 500 MG TAB PO SCH (22:00)
[2023-03-10] MEDS: CARVEDILOL 3.125 MG TAB PO SCH (22:33)
[2023-03-10] MEDS: ATORVASTATIN 20 MG TAB PO SCH (22:34)
[2023-03-10] MEDS: SACUBITRIL-VALSARTAN 24mg/26mg TAB PO SCH (22:34)
[2023-03-11 07:00] LABS: Basophils # (auto) 0.1 10 ^3/uL (0-0.2); Basophils % (auto) 1.3 % (0.0-2.0); Eosinophils # (auto) 0.3 10 ^3/uL (0-0.8); Hemoglobin 9.4 g/dL (12.2-16.2); Monocytes # (auto) 0.5 10 ^3/uL (0-1.3); Monocytes % (auto) 7.7 % (0.0-12.0); White Blood Cell 6.9 10^3/uL (4.4-10.8)
[2023-03-11 07:02] LABS: Eosinophils % (auto) 4.6 % (0.0-7.0); Hematocrit 29.3 % (36.0-46.0); Lymphocytes # (auto) 1.2 10 ^3/uL (0.4-5.4); Lymphocytes % (auto) 18.1 % (10.0-50.0); Mean Corpuscular Hemoglobin 23.9 pg (28.0-32.0); Mean Corpuscular Hgb Conc. 32.3 g/dL (32.0-36.0); Mean Corpuscular Volume 74.1 fL (80.0-100.0); Neutrophils # (auto) 4.7 10 ^3/uL (1.6-8.6); Neutrophils % (auto) 68.3 % (37.0-80.0); Nucleated Red Blood Cells % 0.3 %; Red Blood Cells 3.95 10^6/uL (4.0-5.20); Red Cell Distribution Width 18.6 % (11.8-14.3)
[2023-03-11 07:10] LABS: Albumin 2.7 g/dL (3.4-5.0); BUN/Creatinine Ratio 7.7 (10.0-20.0); Calcium 8.5 mg/dL (8.5-10.1)
[2023-03-11] MEDS ORDERED: KETOROLAC TROMETH 30 MG/ML 1ML VIAL IV ONE (07:15)
[2023-03-11 07:16] LABS: Bilirubin, Total 0.7 mg/dL (0.2-1.0); Total Protein 7.3 g/dL (6.4-8.2)
[2023-03-11 07:30] LABS: Potassium 2.9 mmol/L (3.5-5.1)
[2023-03-11] MEDS: ENOXAPARIN SOD 40 MG/0.4 ML SYRINGE SC SCH (09:55)
[2023-03-11] MEDS: POTASSIUM CHL 10 Meq TABLET PO SCH (09:55)
[2023-03-11] MEDS: PANTOPRAZOLE 40 MG/10 ML VIAL INJ IV SCH (09:55)
[2023-03-11] MEDS: FUROSEMIDE 20 MG/2 ML VIAL IV SCH (09:56)
[2023-03-11] MEDS: SACUBITRIL-VALSARTAN 24mg/26mg TAB PO SCH ×2 (09:56→21:36)
[2023-03-11] MEDS: CARVEDILOL 3.125 MG TAB PO SCH ×2 (09:57→21:37)
[2023-03-11] MEDS: ATORVASTATIN 20 MG TAB PO SCH (21:36)
[2023-03-11 22:00] VITALS: BP 106/76
[2023-03-11] MEDS ORDERED: TEMAZEPAM 15 MG CAP PO ONE (23:15)
[2023-03-12 05:14] VITALS: BP 101/59
[2023-03-12 09:00] VITALS: BP 116/82
[2023-03-12] MEDS: FUROSEMIDE 20 MG/2 ML VIAL IV SCH (09:38)
[2023-03-12] MEDS: ENOXAPARIN SOD 40 MG/0.4 ML SYRINGE SC SCH (09:39)
[2023-03-12] MEDS: CARVEDILOL 3.125 MG TAB PO SCH ×2 (09:39→21:44)
[2023-03-12] MEDS: SACUBITRIL-VALSARTAN 24mg/26mg TAB PO SCH ×2 (09:39→21:42)
[2023-03-12] MEDS: POTASSIUM CHL 10 Meq TABLET PO SCH (09:40)
[2023-03-12] MEDS: PANTOPRAZOLE 40 MG/10 ML VIAL INJ IV SCH (09:41)
[2023-03-12 13:00] VITALS: BP 112/81
[2023-03-12] MEDS: LACTULOSE 20Gm/30ML SOLN PO PRN (15:23)
[2023-03-12] MEDS: MORPHINE SULFATE INJ 2 MG/ml SYRG IV PRN (15:24)
[2023-03-12 17:00] VITALS: BP 119/64
[2023-03-12] MEDS: ATORVASTATIN 20 MG TAB PO SCH (21:42)
[2023-03-12 22:00] VITALS: BP 121/75
[2023-03-13 05:00] VITALS: BP 107/64
[2023-03-13 06:28] LABS: BUN/Creatinine Ratio 17.4 (10.0-20.0); Bilirubin, Total 0.4 mg/dL (0.2-1.0); Calcium 9.4 mg/dL (8.5-10.1); Total Protein 7.6 g/dL (6.4-8.2)
[2023-03-13 09:00] VITALS: BP 105/58
[2023-03-13] MEDS: PANTOPRAZOLE 40 MG/10 ML VIAL INJ IV SCH (09:23)
[2023-03-13] MEDS: SACUBITRIL-VALSARTAN 24mg/26mg TAB PO SCH ×2 (09:23→22:04)
[2023-03-13] MEDS: POTASSIUM CHL 10 Meq TABLET PO SCH (09:24)
[2023-03-13] MEDS: ENOXAPARIN SOD 40 MG/0.4 ML SYRINGE SC SCH (09:24)
[2023-03-13] MEDS: LACTULOSE 20Gm/30ML SOLN PO PRN (09:36)
[2023-03-13] MEDS: FUROSEMIDE 20 MG/2 ML VIAL IV SCH (10:00)
[2023-03-13] MEDS ORDERED: POTASSIUM CHL 20 Meq TABLET PO ONE (10:00)
[2023-03-13] MEDS: CARVEDILOL 3.125 MG TAB PO SCH ×2 (10:00→22:04)
[2023-03-13 13:00] VITALS: BP 113/77
[2023-03-13 17:00] VITALS: BP 120/64
[2023-03-13 22:00] VITALS: BP 100/60
[2023-03-13] MEDS: ATORVASTATIN 20 MG TAB PO SCH (22:04)
[2023-03-13] MEDS: MORPHINE SULFATE INJ 2 MG/ml SYRG IV PRN (22:05)
[2023-03-14 05:00] VITALS: BP 100/67
[2023-03-14 07:30] VITALS: BP 96/58
[2023-03-14 08:54] VITALS: BP 115/75
[2023-03-14] MEDS: PANTOPRAZOLE 40 MG/10 ML VIAL INJ IV SCH (09:48)
[2023-03-14] MEDS: FUROSEMIDE 20 MG/2 ML VIAL IV SCH (09:49)
[2023-03-14] MEDS: POTASSIUM CHL 10 Meq TABLET PO SCH (09:50)
[2023-03-14] MEDS: ENOXAPARIN SOD 40 MG/0.4 ML SYRINGE SC SCH (09:51)
[2023-03-14] MEDS: CARVEDILOL 3.125 MG TAB PO SCH (09:51)
[2023-03-14] MEDS: SACUBITRIL-VALSARTAN 24mg/26mg TAB PO SCH (09:51)
[2023-03-14] MEDS ORDERED: FURO1TAB31 PO (10:18)
[2023-03-14] MEDS ORDERED: LORA-655 PO (10:58)
[2023-03-14 13:00] VITALS: BP 99/69
[2023-03-14 14:14] VITALS: BP 115/75
== END 2023-03-14 14:30 | disposition home or self-care (01) | DRG 194 ==
LOC: ER 12:02 → TELE 13:41 → TELE-CENTR 03-11 17:25
PROVIDERS: ADMIT Nurse Practitioner Family; ATTEND Internal Medicine
DX: I11.0 Hypertensive heart disease with heart failure (principal); I21.A1 Myocardial infarction type 2; E44.0 Moderate protein-calorie malnutrition; I42.8 Other cardiomyopathies; I50.43 Acute on chronic combined systolic (congestive) and diastolic (congestive) heart failure; Z95.810 Presence of automatic (implantable) cardiac defibrillator; K59.00 Constipation, unspecified; Z68.38 Body mass index [BMI] 38.0-38.9, adult; E66.9 Obesity, unspecified; R09.89 Other specified symptoms and signs involving the circulatory and respiratory systems; Z82.49 Family history of ischemic heart disease and other diseases of the circulatory system; Z83.3 Family history of diabetes mellitus; Z88.0 Allergy status to penicillin; Z90.710 Acquired absence of both cervix and uterus; Z91.148 Patient's other noncompliance with medication regimen for other reason
CPT/HCPCS: 36415; 71045; 71275; 80053; 80061; 80307; 81001; 83880; 84443; 84484; 85025; 85379; 93005; 97163; 99291; C9113; G0378; J1885; J2405

== ENCOUNTER 2024-06-15 22:26 | Inpatient (IN) | payer MEDICAID ==
[~2024-06-15] VITALS: Ht 165.1 cm; Wt 111.4 kg
[~2024-06-15 22:26] MED LIST changes: -CAR3125T PO; -CEPH-509 PO; -CLIN300C70 PO; +FERR1TAB8 PO; +FURO1TAB31 PO; -FURO1TAB33 PO; -FURO40TA4 PO; +LORA-655 PO
[2024-06-15 23:25] LABS: Basophils # (auto) 0.1 10 ^3/uL (0-0.2); Eosinophils # (auto) 0.7 10 ^3/uL (0-0.8); Hemoglobin 10.8 g/dL (12.2-16.2); Monocytes # (auto) 1.2 10 ^3/uL (0-1.3); Neutrophils # (auto) 4.4 10 ^3/uL (1.6-8.6); Nucleated Red Blood Cells % 0.1 %
[2024-06-15 23:28] LABS: Basophils % (auto) 1.2 % (0.0-2.0); Eosinophils % (auto) 7.3 % (0.0-7.0); Lymphocytes # (auto) 2.9 10 ^3/uL (0.4-5.4); Lymphocytes % (auto) 30.9 % (10.0-50.0); Mean Corpuscular Hemoglobin 24.7 pg (28.0-32.0); Mean Corpuscular Hgb Conc. 31.8 g/dL (32.0-36.0); Mean Corpuscular Volume 77.6 fL (80.0-100.0); Monocytes % (auto) 13.2 % (0.0-12.0); Neutrophils % (auto) 47.4 % (37.0-80.0); Platelet Count (auto) 480 10^3/uL (140-450); Red Blood Cells 4.38 10^6/uL (4.0-5.20); Red Cell Distribution Width 19.4 % (11.8-14.3); White Blood Cell 9.3 10^3/uL (4.4-10.8)
[2024-06-15 23:42] LABS: Acetaminophen < 2.0 UG/ML (10.0-20.0); Alanine Aminotransferase 51 U/L (7-40); Albumin 4.2 g/dL (3.2-4.8); Alkaline Phosphatase 105 U/L (46-116); Anion Gap 6 (5-15); Aspartate Aminotransferase 52 U/L (13-40); BUN/Creatinine Ratio 11.1 (10.0-20.0); Blood Urea Nitrogen 13 mg/dL (9-23); Calcium 8.8 mg/dL (8.7-10.4); Carbon Dioxide 24 mmol/L (20-30); Chloride 106 mmol/L (98-107); Glucose 113 mg/dL (74-106); Lipase 94 U/L (12-53); Potassium 3.6 mmol/L (3.5-5.1); Sodium 136 mmol/L (136-145)
[2024-06-15 23:43] LABS: Bilirubin, Total 0.4 mg/dL (0.2-1.0); Total Protein 7.7 g/dL (5.7-8.2)
[2024-06-15 23:46] LABS: Salicylate < 3.0 mg/dL (2.8-20.0)
[2024-06-15] MEDS: ACTIVATED CHARCOAL 50 GM/240 ML SOL PO ONE (23:57)
[2024-06-16 02:07] LABS: Blood Alcohol 297.1 mg/dL (<10)
[2024-06-16] MEDS: SODIUM CHLORIDE 0.9% 1,000 ML IV ONE ×3 (02:14→03:03)
[2024-06-16] MEDS: ONDANSETRON HCL 4 MG/2 ML VIAL IV ONE (03:29)
[2024-06-16] MEDS: NOREPINEPHRINE 8 MG/250ML KIT 250 ML IV SCH (04:40)
[2024-06-16 04:47] LABS: Urine Amorphous Crystal FEW /hpf (None Seen); Urine Bacteria FEW /hpf (None Seen); Urine Blood Negative /uL (Negative); Urine Clarity Turbid (Clear); Urine Color Yellow (Yellow); Urine Hyaline Cast FEW /lpf (0 - 2); Urine Mucus FEW (None Seen); Urine Protein, UAD 1+ (Negative); Urine Specific Gravity 1.024 (1.001-1.035); Urine Urobilinogen Normal (Negative); Urine WBC 4 /hpf (0 - 5); Urine pH 5.5 (5.0-9.0)
[2024-06-16 04:55] LABS: Amphetamine Screen, Urine Neg (NEGATIVE); Barbiturate Scree,Urine Neg (NEGATIVE); Benzodiazephine Screen, Urine Neg (NEGATIVE); Cocaine Screen, Urine Neg (NEGATIVE); Opiate Scree,Urine Neg (NEGATIVE); Phencyclidine Screen, Urine Neg (NEGATIVE)
[2024-06-16 04:56] LABS: Cannabinoid Screen, Urine Neg (NEGATIVE)
[2024-06-16] MEDS ORDERED: LORazepam 2MG/ML-1ML VIAL IV PRN (06:00)
[2024-06-16] MEDS ORDERED: ONDANSETRON HCL 4 MG/2 ML VIAL IV PRN (06:00)
[2024-06-16] MEDS: THIAMINE 100mg/ml INJ (200mg/2ml VIAL) IV ONE (06:21)
[2024-06-16] MEDS: PANTOPRAZOLE 40 MG/10 ML VIAL INJ IV ONE (06:21)
[2024-06-16 08:03] LABS: INR 1.06 (0.9-1.15); Prothrombin Time 11.2 sec (9.3-11.8)
[2024-06-16 08:36] LABS: % Iron Saturation 2.4 % (15-50)
[2024-06-16 08:53] LABS: Chloride 115 mmol/L (98-107); Sodium 143 mmol/L (136-145)
[2024-06-16 08:55] LABS: Anion Gap 10 (5-15); Carbon Dioxide 18 mmol/L (20-30)
[2024-06-16 08:59] LABS: Glucose 120 mg/dL (74-106)
[2024-06-16 09:00] LABS: BUN/Creatinine Ratio 8.2 (10.0-20.0); Blood Urea Nitrogen 12 mg/dL (9-23)
[2024-06-16 09:01] LABS: Base Excess -6.2 mmol/L (-2.0-3.0)
[2024-06-16] MEDS: LORazepam 2MG/ML-1ML VIAL IV PRN (10:42)
[2024-06-16 10:54] LABS: Calcium 8.1 mg/dL (8.7-10.4); Chloride 113 mmol/L (98-107); Potassium 4.1 mmol/L (3.5-5.1); Sodium 141 mmol/L (136-145)
[2024-06-16 10:55] LABS: Anion Gap 9 (5-15); Carbon Dioxide 19 mmol/L (20-30)
[2024-06-16 11:00] LABS: BUN/Creatinine Ratio 8.6 (10.0-20.0); Blood Urea Nitrogen 12 mg/dL (9-23); Glucose 112 mg/dL (74-106)
[2024-06-16] MEDS ORDERED: chlordiazePOXIDE HCL 25 MG CAP PO SCH (14:15)
[2024-06-16] MEDS: SODIUM CHLORIDE 0.9% 1,000 ML IV SCH (14:15)
[2024-06-16 14:37] LABS: Chloride 112 mmol/L (98-107); Sodium 140 mmol/L (136-145)
[2024-06-16 14:38] LABS: Anion Gap 7 (5-15); Calcium 8.3 mg/dL (8.7-10.4); Carbon Dioxide 21 mmol/L (20-30)
[2024-06-16 14:43] LABS: BUN/Creatinine Ratio 7.4 (10.0-20.0); Blood Urea Nitrogen 10 mg/dL (9-23); Glucose 95 mg/dL (74-106)
[2024-06-16] MEDS: chlordiazePOXIDE HCL 25 MG CAP PO ONE (14:52)
[2024-06-16] MEDS: chlordiazePOXIDE HCL 25 MG CAP PO SCH (15:15)
[2024-06-16] MEDS: FOLIC ACID 1 MG, MULTIPLE VITAMIN 10 ML, MAGNESIUM SULF SDV 50% 8 MEQ, THIAMINE INJ 100... INJ SCH (18:43)
[2024-06-16 19:18] LABS: Chloride 111 mmol/L (98-107); Potassium 3.8 mmol/L (3.5-5.1); Sodium 137 mmol/L (136-145)
[2024-06-16 19:19] LABS: Anion Gap 6 (5-15); Carbon Dioxide 20 mmol/L (20-30)
[2024-06-16 19:20] LABS: Calcium 8.4 mg/dL (8.7-10.4)
[2024-06-16 19:24] LABS: Glucose 123 mg/dL (74-106)
[2024-06-16 19:25] LABS: BUN/Creatinine Ratio 7.4 (10.0-20.0); Blood Urea Nitrogen 9 mg/dL (9-23)
[2024-06-16 19:35] VITALS: PULSE 108; RESP 24; O2SAT 94
[2024-06-16 22:23] LABS: Chloride 111 mmol/L (98-107); Potassium 3.7 mmol/L (3.5-5.1); Sodium 135 mmol/L (136-145)
[2024-06-16 22:24] LABS: Anion Gap 4 (5-15); Calcium 8.7 mg/dL (8.7-10.4); Carbon Dioxide 20 mmol/L (20-30)
[2024-06-16 22:29] LABS: BUN/Creatinine Ratio 7.1 (10.0-20.0); Blood Urea Nitrogen 8 mg/dL (9-23); Glucose 135 mg/dL (74-106)
[2024-06-17 02:12] LABS: Chloride 109 mmol/L (98-107); Potassium 3.9 mmol/L (3.5-5.1); Sodium 135 mmol/L (136-145)
[2024-06-17 02:13] LABS: Anion Gap 4 (5-15); Carbon Dioxide 22 mmol/L (20-30)
[2024-06-17 02:14] LABS: Calcium 8.8 mg/dL (8.7-10.4)
[2024-06-17 02:19] LABS: BUN/Creatinine Ratio 9.3 (10.0-20.0); Blood Urea Nitrogen 9 mg/dL (9-23); Glucose 121 mg/dL (74-106)
[2024-06-17 07:30] VITALS: PULSE 103; RESP 20; O2SAT 95
[2024-06-17] MEDS: PANTOPRAZOLE 40 MG/10 ML VIAL INJ IV SCH (09:59)
[2024-06-17] MEDS: chlordiazePOXIDE HCL 25 MG CAP PO SCH (09:59)
[2024-06-17] MEDS: MORPHINE SULFATE 4 MG/ML SYR/VIAL IV ONE (10:45)
[2024-06-17] MEDS: METOPROLOL TARTRATE 1MG/1ML-5ML VIAL IV ONE (10:45)
[2024-06-17] MEDS: dilTIAZem 25 MG/5 ML VIAL IV ONE (12:17)
[2024-06-17] MEDS: dilTIAZem 125mg/125ml BAG KIT 125 ML IV SCH (12:17)
[2024-06-17 19:45] VITALS: PULSE 90; RESP 26; O2SAT 99
[2024-06-17] MEDS: FUROSEMIDE 40 MG/4 ML VIAL IV ONE (23:09)
[2024-06-18 07:30] VITALS: PULSE 109; RESP 18; O2SAT 99
[2024-06-18] MEDS ORDERED: dilTIAZem 120MG ER CAP PO SCH (10:00)
[2024-06-18] MEDS: chlordiazePOXIDE HCL 25 MG CAP PO SCH (10:22)
[2024-06-18] MEDS: FUROSEMIDE 40 MG/4 ML VIAL IV SCH (10:23)
[2024-06-18 10:51] VITALS: BP 136/91; PULSE 104; RESP 21; TEMP 97.8; O2SAT 94
[2024-06-18 13:00] VITALS: BP 118/73; PULSE 109; RESP 19; TEMP 98.1; O2SAT 93
[2024-06-18 17:00] VITALS: BP 144/82; PULSE 109; RESP 22; TEMP 98; O2SAT 96
[2024-06-18 19:00] VITALS: PULSE 107
[2024-06-18 21:00] VITALS: BP 128/69; PULSE 107; RESP 20; TEMP 98.7; O2SAT 91
[2024-06-19] VITALS (11 sets, daily range): BP systolic 90–114; BP diastolic 63–75; PULSE 91–111; RESP 16–23; TEMP 97.6–98.7; O2SAT 90–99
[2024-06-19] MEDS ORDERED: MORPHINE SULFATE INJ 2 MG/ml SYRG IV PRN (04:45)
[2024-06-19] MEDS: chlordiazePOXIDE HCL 25 MG CAP PO SCH (06:25)
[2024-06-19] MEDS: dilTIAZem 120MG ER CAP PO SCH (10:01)
[2024-06-19] MEDS: FUROSEMIDE 40 MG/4 ML VIAL IV ONE ×2 (10:22→16:02)
[2024-06-19] MEDS: ALBUTEROL SULF 2.5 MG/0.5ML(0.5%) NEB SOLN NEB PRN (10:59)
[2024-06-19] MEDS: METOPROLOL TARTRATE 1MG/1ML-5ML VIAL IV ONE (13:59)
[2024-06-19] MEDS: METOPROLOL TARTRATE 25 MG TAB PO ONE (14:12)
[2024-06-19] MEDS: AMIODARONE HCL 200 MG TAB PO ONE (14:15)
[2024-06-19] MEDS: NITROGLYCERIN 0.4 MG SL TAB SL PRN (14:38)
[2024-06-19 15:01] LABS: Alanine Aminotransferase 57 U/L (7-40); Albumin 4.4 g/dL (3.2-4.8); Alkaline Phosphatase 93 U/L (46-116); Anion Gap 10 (5-15); Aspartate Aminotransferase 72 U/L (13-40); BUN/Creatinine Ratio 18.2 (10.0-20.0); Bilirubin, Total 0.8 mg/dL (0.2-1.0); Blood Urea Nitrogen 14 mg/dL (9-23); Calcium 9.5 mg/dL (8.7-10.4); Carbon Dioxide 26 mmol/L (20-31); Chloride 102 mmol/L (98-107); Glucose 121 mg/dL (74-106); Magnesium 1.8 mg/dL (1.6-2.6); Potassium 3.6 mmol/L (3.5-5.1); Sodium 138 mmol/L (136-145)
[2024-06-19] MEDS: FOLIC ACID 1 MG TAB PO SCH (17:41)
[2024-06-19] MEDS: MAGNESIUM OXIDE 400 MG TAB PO SCH (17:42)
[2024-06-19] MEDS: THIAMINE HCL 100 MG TAB PO SCH (17:42)
[2024-06-19] MEDS: MULTIPLE VITAMIN TAB PO SCH (17:42)
[2024-06-19] MEDS: METOPROLOL TARTRATE 25 MG TAB PO SCH (20:54)
[2024-06-19] MEDS: AMIODARONE HCL 200 MG TAB PO SCH (20:54)
[2024-06-20] VITALS (13 sets, daily range): BP systolic 90–130; BP diastolic 64–80; PULSE 89–106; RESP 18–28; TEMP 97.7–98.7; O2SAT 91–99
[2024-06-20] MEDS: MELATONIN 5 MG TAB PO ONE (22:22)
[2024-06-21] VITALS (12 sets, daily range): BP systolic 91–127; BP diastolic 52–91; PULSE 59–109; RESP 16–28; TEMP 97.7–97.8; O2SAT 91–98
[2024-06-21] MEDS: MELATONIN 5 MG TAB PO ONE (23:54)
[2024-06-22] VITALS (13 sets, daily range): BP systolic 101–120; BP diastolic 62–78; PULSE 76–95; RESP 18–24; TEMP 97.6–99.1; O2SAT 92–100
[2024-06-23] VITALS (11 sets, daily range): BP systolic 104–140; BP diastolic 58–72; PULSE 85–100; RESP 16–26; TEMP 97.5–98.6; O2SAT 92–100
[2024-06-23] MEDS: LISINOPRIL 5 MG TAB PO SCH (12:04)
[2024-06-24] VITALS (13 sets, daily range): BP systolic 110–126; BP diastolic 65–86; PULSE 78–99; RESP 16–22; TEMP 97.4–98.7; O2SAT 93–99
[2024-06-25] VITALS (14 sets, daily range): BP systolic 97–127; BP diastolic 58–74; PULSE 88–98; RESP 18–21; TEMP 97.8–98.6; O2SAT 92–99
[2024-06-25] MEDS: MELATONIN 5 MG TAB PO ONE (01:47)
[2024-06-26] VITALS (12 sets, daily range): BP systolic 110–122; BP diastolic 67–82; PULSE 89–104; RESP 18–21; TEMP 97.8–98.7; O2SAT 93–100
[2024-06-27] VITALS (10 sets, daily range): BP systolic 110–132; BP diastolic 67–78; PULSE 77–98; RESP 18–20; TEMP 98–98.6; O2SAT 90–99
[2024-06-28] VITALS (8 sets, daily range): BP systolic 90–115; BP diastolic 50–82; PULSE 65–101; RESP 18–22; TEMP 97.5–98.4; O2SAT 92–96
== END 2024-06-28 18:30 | disposition left against medical advice (07) | DRG 817 ==
LOC: ER 22:26 → TELE 06-16 05:24 → TELE-CENTR 06-18 10:37
PROVIDERS: ADMIT Family Medicine; ATTEND Family Medicine
DX: T50.3X2A Poisoning by electrolytic, caloric and water-balance agents, intentional self-harm, initial encounter (principal); J96.01 Acute respiratory failure with hypoxia; N17.0 Acute kidney failure with tubular necrosis; R57.0 Cardiogenic shock; I21.4 Non-ST elevation (NSTEMI) myocardial infarction; G92.8 Other toxic encephalopathy; R16.0 Hepatomegaly, not elsewhere classified; I50.23 Acute on chronic systolic (congestive) heart failure; I11.0 Hypertensive heart disease with heart failure; F10.139 Alcohol abuse with withdrawal, unspecified; Y90.9 Presence of alcohol in blood, level not specified; R45.851 Suicidal ideations; I42.7 Cardiomyopathy due to drug and external agent; F41.9 Anxiety disorder, unspecified; R74.01 Elevation of levels of liver transaminase levels; F14.10 Cocaine abuse, uncomplicated; D50.9 Iron deficiency anemia, unspecified; E78.5 Hyperlipidemia, unspecified; F15.10 Other stimulant abuse, uncomplicated; K76.0 Fatty (change of) liver, not elsewhere classified; F32.9 Major depressive disorder, single episode, unspecified; K80.20 Calculus of gallbladder without cholecystitis without obstruction; Y90.8 Blood alcohol level of 240 mg/100 ml or more; E86.0 Dehydration; Z88.0 Allergy status to penicillin; Z79.899 Other long term (current) drug therapy; Z79.84 Long term (current) use of oral hypoglycemic drugs; Z95.810 Presence of automatic (implantable) cardiac defibrillator; Z83.3 Family history of diabetes mellitus; Z82.49 Family history of ischemic heart disease and other diseases of the circulatory system; Z63.4 Disappearance and death of family member; Z82.0 Family history of epilepsy and other diseases of the nervous system; Y92.89 Other specified places as the place of occurrence of the external cause
CPT/HCPCS: 36415; 36600; 71045; 71046; 74018; 76705; 80048; 80053; 80307; 80320; 80329; 81001; 82728; 82805; 83540; 83550; 83690; 83735; 83880; 84443; 84484; 84702; 85025; 85610; 85730; 93005; 93306; 94640; 99291; G0378; J2405; J2470

== ENCOUNTER 2025-03-07 15:17 | Inpatient (IN) | payer MEDICAID ==
[~2025-03-07] VITALS: Ht 165.1 cm; Wt 112.2 kg
[~2025-03-07 15:17] MED LIST changes: +ASPI-325 PO; +FER325T PO; +FURO40TA4 PO; +MESA800T9 PO; +POTA-228 PO; +SENN8.6T83 PO
[2025-03-07] MEDS: cefTRIAXone 1GM/50ML D5W 50 ML IV ONE (15:30)
--- NOTE | 2025-03-07 16:02 | ED.PDOC ---
General HPI Comments HPI: 49y F who presents to the ED for chief complaint of flank pain. - pt has been having R lower back pain and suprapubic pain since this morning. - pt has been having associated nausea and urinary symptoms including dysuria - pt rates the pain 10/10, with no associated exacerbating or relieving factors - pt otherwise denies any other symptoms at this time Past Medical history: CHF, HTN, HLD, MN Past Surgical history: defibrillator, , ad L knee surgery Medications: denies Allergies: penicillin Social History: endorses ETOH, denies tobacco use, denies drug use HPI: Poor Historian. Patient drinks alcohol daily. History of CHF. Patient states she has been having left upper extremity numbness and tingling REVIEW OF SYSTEMS: CONSTITUTIONAL: Denies acute: fever, diaphoresis, chills, HEAD: Denies acute: headache, photophobia Eyes: Denies acute: Double vision, vision loss, eye pain, eye discharge. EARS: Denies acute: tinnitus, hearing loss, ear discharge, ear pain, THROAT: Denies acute: sore throat, swelling, difficulty swallowing , pain with swallowing, change in voice. NECK: Denies acute: neck pain, neck swelling, stiff neck. HEART: Denies acute : chest pain, palpitations, LUNGS: Denies acute: SOB, wheezing, cough, hemoptysis ABDOMEN: Denies acute: , Vomiting, diarrhea, melena , hematemesis, hematochezia SKIN: Denies acute: rash, redness, lesions, itchiness. EXTREMITIES: Denies acute: calf pain, weakness, denies pain in extremity. Denies acute: Low back pain. Neuro: Denies acute: focal neurological deficit, motor or sensory focal neurological deficit, tremors, seizure like activity, confusion, dizziness, change in mental status, loss of bowel or bladder function, cauda equina like symptoms. : Denies acute: hematuria, increase in urinary frequency. PSYCH: Denies acute: hallucination, suicidal ideation, homicidal ideation. FEMALE: Denies acute: abnormal vaginal bleeding, foul odor, unusual discharge. PHYSICAL EXAM: General: ----zkbz-co-[id number]----acute distress, awake and alert. Head: normocephalic, atraumatic. Neck: supple, trachea is midline, no swelling. Throat: Normal phonation. Eyes:, no erythema, no purulent discharge, no proptosis, no icterus. Heart: regular rate, regular rhythm, no significant murmur appreciated. Lungs: no apparent respiratory distress, Able to speak in full sentences. No wheezing, no rhonchi, no crackles. No stridors Clear to auscultation bilaterally. Abdomen: Pubic tender to palpation, non distended, soft, no guarding, no rebound, + bowel sounds. Obese Neuro: Awake, Alert, oriented to name, self, situation, follows commands GCS=15. Speech is normal. Skin: no petechia, no purpura, no cyanosis, non-pale, not jaundice. Lower extremities: --trace bilateral - Pitting edema no deformity, no focal swelling, no calf TTP. Makes eye contact. moves all four extremities. Face: no apparent facial droop. Right CVA tenderness to percussion Ambulating in the ED independently. ED COURSE: DISCLAIMER: This medical document was created using an electronic medical record system with voice recognition software and computerized dictation system. Although this document has been carefully reviewed, there might still be some phonetic and typographical errors. Occasional wrong-word or "sound-alike" substitutions may have occurred due to the inherent limitations of voice recognition software. These areas are purely typographical due to imperfections of the software programs and do not reflect any compromise in the patient's medical care. Please read the chart carefully and recognize, using context, where these substitutions have occurred. Chief Complaint: Flank Pain Time Seen by MD: 16:01 Primary Care Provider: UNKNOWN Reviewed notes: Medications, Allergies Allergies: Coded Allergies: Penicillins (Verified Allergy, Unknown, 08/14/21) Home Meds Active Scripts Lorazepam (Ativan) 0.5 Mg Tab, 1 TAB PO TIDPRN PRN, #60 TAB Prov:LIU GUZMÁN MD 03/14/23 Furosemide (Lasix) 40 Mg Tab, 40 MG PO DAILY, #30 TAB 5 Refills Prov:LIU GUZMNÁ MD 03/14/23 Ranolazine (Ranexa) 500 Mg Tab, 500 MG PO BID for 60 Days, #120 TAB Prov:SALBINO,GREER WIENER PACKER 10/08/22 Reported Medications Ferrous Sulfate (Gnp Iron) 325 Mg Tab, 1 TAB PO BID for 60 Days, #120 06/17/24 Potassium Chloride (Klor-Con 10) 10 Meq Tab, 1 TAB PO DAILY 10/06/22 Sacubitril-Valsartan (Entresto 24-26 mg) 1 Tab Tab, 1 TAB PO BID 10/06/22 Carvedilol (Carvedilol) 6.25 Mg Tab, 6.25 MG PO BID for 30 Days, MG 08/15/21 Lisinopril (Lisinopril) 5 Mg Tab, 5 MG PO DAILY for 30 Days, MG 08/15/21 Atorvastatin Calcium (ATORVASTATIN CALCIUM) 20 Mg Tab, 1 TAB PO HS, #30 TAB 5 Refills 08/15/21 Information Source: Patient Mode of Arrival: Ambulatory Past Medical History PAST MEDICAL HISTORY: CHF, High Lipids, HTN, MN Surgical History: , Pacemaker 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 Was a procedure done?: No Differential Diagnosis Kidney stone (Female): Other (Flank Pain;DDX include Nephrolethiasis, obstructive uropathy, kidney cancer, renal infarct, intraabdominal neoplasm, lower lobe pneumonia, retroperitoneal hemorrhage, pancreatitis, aneurysm, dissection, musculoskeletal, rib contusion/trauma, hematoma, PYLONEPHRITIS, muscle strain, spinal disease. IN A FEMALE) X-Ray, Labs, Meds, VS Vital Signs Date Time Temp Pulse Resp B/P (MAP) Pulse Ox O2 Delivery O2 Flow Rate FiO2 03/07/25 16:08 100 03/07/25 15:23 97.5 115 20 123/49 (73) 96 97.5 Lab Test 03/07/25 17:00 03/07/25 16:30 03/07/25 15:46 Range/Units Urine Color Light-yellow Yellow Urine Clarity Ex.turbid Clear Urine pH 5.5 5.0-9.0 Urine Specific [place] 1.014 1.001-1.035 Urine Protein Trace H Negative Urine Ketones Negative Negative Urine Blood 3+ H Negative /uL Urine Nitrite Negative Negative Urine Bilirubin Negative Negative Urine Urobilinogen Normal Negative mg/dL Urine Leukocyte Esterase Negative Negative /uL Urine RBC 271 0 - 4 /hpf Urine Microscopic WBC 25 H 0-5 /HPF Urine Squamous Epithelial Cells Few <5 /hpf Urine Uric Acid Crystals Mod None Seen /hpf Urine Bacteria Few H None Seen /hpf Urine Glucose Normal Normal mg/dL Urine Opiates Screen Neg NEGATIVE Urine Fentanyl Screen Neg NEGATIVE Urine Barbiturates Screen Neg NEGATIVE Urine Phencyclidine Screen Neg NEGATIVE Urine Amphetamines Screen Neg NEGATIVE Urine Benzodiazepines Screen Neg NEGATIVE Urine Cocaine Screen Neg NEGATIVE Urine Cannabinoids Screen Neg NEGATIVE Troponin I High Sensitivity 148 *H 133 *H </=34 ng/L White Blood Count 8.2 4.4-10.8 10^3/uL Red Blood Count 4.85 4.0-5.20 10^6/uL Hemoglobin 15.3 12.2-16.2 g/dL Hematocrit 45.2 36.0-46.0 % Mean Corpuscular Volume 93.2 80.0-100.0 fL Mean Corpuscular Hemoglobin 31.5 28.0-32.0 pg Mean Corpuscular Hemoglobin Concent 33.8 32.0-36.0 g/dL Red Cell Distribution Width 14.8 H 11.8-14.3 % Platelet Count 254 140-450 10^3/uL Mean Platelet Volume 8.2 6.9-10.8 fL Neutrophils (%) (Auto) 76.4 37.0-80.0 % Lymphocytes (%) (Auto) 13.4 10.0-50.0 % Monocytes (%) (Auto) 7.4 0.0-12.0 % Eosinophils (%) (Auto) 1.8 0.0-7.0 % Basophils (%) (Auto) 1.0 0.0-2.0 % Neutrophils # (Auto) 6.3 1.6-8.6 10 ^3/uL Lymphocytes # (Auto) 1.1 0.4-5.4 10 ^3/uL Monocytes # (Auto) 0.6 0-1.3 10 ^3/uL Eosinophils # (Auto) 0.1 0-0.8 10 ^3/uL Basophils # (Auto) 0.1 0-0.2 10 ^3/uL Nucleated Red Blood Cells 0.0 % Sodium Level 140 136-145 mmol/L Potassium Level 3.9 3.5-5.1 mmol/L Chloride Level 104 98-107 mmol/L Carbon Dioxide Level 23 20-31 mmol/L Anion Gap 13 5-15 Blood Urea Nitrogen 14 9-23 mg/dL Creatinine 0.91 0.550-1.02 mg/dL Glomerular Filtration Rate Calc 78 >90 mL/min BUN/Creatinine Ratio 15.4 10.0-20.0 Serum Glucose 116 H 74-106 mg/dL Hemoglobin A1c 5.7 <5.7 % A1C Lactic Acid Level 1.7 0.4-2.0 mmol/L Calcium Level 9.4 8.7-10.4 mg/dL Magnesium Level 1.9 1.6-2.6 mg/dL Total Bilirubin 0.6 0.2-1.0 mg/dL Aspartate Amino Transferase (AST) 82 H <34 U/L Alanine Aminotransferase (ALT) 69 H 7-40 U/L Alkaline Phosphatase 94 46-116 U/L B-Type Natriuretic Peptide 219.54 0-100 pg/mL Total Protein 7.3 5.7-8.2 g/dL Albumin 4.3 3.2-4.8 g/dL Vitamin B12 Level 488 211-911 pg/mL Vitamin D 25-Hydroxy 11.6 L 30.0-100 ng/mL Thyroid Stimulating Hormone (TSH) 0.83 0.55-4.78 uIU/mL Current Medications Medications (Trade) Dose Ordered Sig/Ilana Route Start Time Stop Time Status Last Admin Ceftriaxone Sodium 50 ml @ 100 mls/hr ONCE ONCE IV 03/07/25 15:30 03/07/25 15:59 DC 03/07/25 15:30 Acetaminophen/ Hydrocodone Bitart (Martinez 5/325MG Tab) 1 tab ONCE ONCE PO 03/07/25 16:45 03/07/25 16:46 DC 03/07/25 16:45 Tamsulosin HCl (Flomax) 0.4 mg ONCE ONCE PO 03/07/25 16:45 03/07/25 16:46 DC 03/07/25 16:45 Aspirin (Ecotrin Enteric Coated Tablet) 325 mg ONCE ONCE PO 03/07/25 16:45 03/07/25 16:46 DC 03/07/25 16:45 [facility] [id number] [place] [id number] Ph: [phone] DIAGNOSTIC IMAGING Diagnostic Imaging Report : [id number] Signed with Christian PATIENT: BETY JASONACCT: [id number] UNIT: [id number] : 1975 LOC: ER ROOM / BED: / AGE / SEX: 49 / F ADM STATUS: REG ER SERVICE 1529 ORDERING PHYSICIAN: EDISON VALLADARES DO PROCEDURE(s): ABPL - CT AB PEL WO CON-NO ORAL OR IV REASON: r low back pain, suprapubic pain ORDER NUMBER(s): [id number], ACCESSION NUMBER(s): [id number] ADDENDUM ADDENDUM # 1 HS:Y ORIGINAL REPORT Exam: CT CT AB PEL WO CON-NO ORAL OR IV History: r low back pain, suprapubic pain Comparison Study: CT CT AB PEL WO CON-NO ORAL OR IV on DOS: 11/17/22, [facility] on DOS: 10/07/22 TECHNIQUE: Multidetector CT of the abdomen was performed from lung bases to pubic symphysis. Imaging was performed without IV contrast. Axial, coronal and sagittal multiplanar reformats were obtained from the axial data set by the technologist. Radiation Dose Information: CT Dose: CTDI volume is 26.04 mGy. Dose-length product is 1354.05 mGy*cm FINDINGS: Evaluation of solid organs is limited due to lack of intravenous contrast use. Findings: Lung Bases: No acute or significant lung base finding. Normal heart size. No pleural or pericardial effusion. Liver: The liver is normal in size. No focal lesions. Gallbladder and Biliary Tree: Cholelithiasis Spleen: Unremarkable Pancreas: The pancreas is grossly normal in appearance. Adrenal Glands: Unremarkable Kidneys: Mild right hydronephrosis. Small calculus in the calyx right kidney. 3 cm left cortical renal calculus. Bladder: 6.6 mm calculi consistent with a recently passed ureteral calculus there is mild right hydronephrosis Bowel: The stomach is grossly normal in appearance. Small bowel and colon are normal in caliber and distribution. The appendix is not visualized; however, no secondary findings of acute appendicitis identified. Ascites: Absent Lymphadenopathy: No mesenteric, retroperitoneal or periportal lymphadenopathy. Abdominal Wall and Mesentery: Unremarkable. Vasculature: The visualized abdominal aorta is normal in size and caliber. Evaluation of abdominal and pelvic vessels is limited due to lack of intravenous contrast. Pelvic Organs: Unremarkable Musculoskeletal: No aggressive focal bony lesions, acute fractures or dislocation. Soft tissues: Unremarkable IMPRESSION: 1. Mild right hydronephrosis calculus in the calyx of the right kidney. There is a 6-7 mm calculus within the bladder on the right. This is consistent with a recently passed ureteral calculus. 2. Cholelithiasis 3. No findings of bowel obstruction. Radiation optimization: All CT scans at this facility use at least one of these dose optimization techniques: automated exposure control mA and/or kV adjust ment per patient size (includes targeted exams where dose is matched to clinical indication) or iterative reconstruction. ATED BY: TYSON ROSARIO Jr., DO DICTATED DATE/TIME: 03/07/251635 SIGNED BY: TYSON ROSARIO Jr., DO SIGNED DATE/TIME: 03/07/251635 CC: Exam: CT CT AB PEL WO CON-NO ORAL OR IV History: r low back pain, suprapubic pain Comparison Study: CT CT AB PEL WO CON-NO ORAL OR IV on DOS: 11/17/22, [facility] on DOS: 10/07/22 TECHNIQUE: Multidetector CT of the abdomen was performed from lung bases to pubic symphysis. Imaging was performed without IV contrast. Axial, coronal and sagittal multiplanar reformats were obtained from the axial data set by the technologist. Radiation Dose Information: CT Dose: CTDI volume is 26.04 mGy. Dose-length product is 1354.05 mGy*cm FINDINGS: Evaluation of solid organs is limited due to lack of intravenous contrast use. Findings: Lung Bases: No acute or significant lung base finding. Normal heart size. No pleural or pericardial effusion. Liver: The liver is normal in size. No focal lesions. Gallbladder and Biliary Tree: Cholelithiasis Spleen: Unremarkable Pancreas: The pancreas is grossly normal in appearance. Adrenal Glands: Unremarkable Kidneys: Mild right hydronephrosis. Small calculus in the calyx right kidney. 3 cm left cortical renal calculus. Bladder: 6.6 mm calculi consistent with a recently passed ureteral calculus there is mild right hydronephrosis Bowel: The stomach is grossly normal in appearance. Small bowel and colon are normal in caliber and distribution. The appendix is not visualized; however, no secondary findings of acute appendicitis identified. Ascites: Absent Lymphadenopathy: No mesenteric, retroperitoneal or periportal lymphadenopathy. Abdominal Wall and Mesentery: Unremarkable. Vasculature: The visualized abdominal aorta is normal in size and caliber. Evaluation of abdominal and pelvic vessels is limited due to lack of intravenous contrast. Pelvic Organs: Unremarkable Musculoskeletal: No aggressive focal bony lesions, acute fractures or dislocation. Soft tissues: Unremarkable IMPRESSION: 1. Mild right hydronephrosis calculus in the calyx of the right kidney. There is a 6-7 mm calculus within the bladder on the right. This is consistent with a recently passed ureteral calculus. 2. Cholelithiasis 3. No findings of bowel obstruction. Radiation optimization: All CT scans at this facility use at least one of these dose optimization techniques: automated exposure control mA and/or kV adjustment per patient size (includes targeted exams where dose is matched to clinical indication) or iterative reconstruction. ATED BY: TYSON ROSARIO Jr., DO DICTATED DATE/TIME: 03/07/251615 SIGNED BY: TYSON ROSARIO Jr., DO SIGNED DATE/TIME: 03/07/251615 CC: [place] [id number] Ph: [phone] DIAGNOSTIC IMAGING Diagnostic Imaging Report : [id number] Signed PATIENT: BETY JASONT: [id number] UNIT: [id number] : 1975 LOC: ER ROOM / BED: / AGE / SEX: 49 / F ADM STATUS: REG ER SERVICE 1529 ORDERING PHYSICIAN: EDISON VALLADARES DO PROCEDURE(s): CXRP - CHEST PORTABLE REASON: h/o chf. ORDER NUMBER(s): [id number], ACCESSION NUMBER(s): [id number] CHEST RADIOGRAPH Indication: h/o chf. Technique: Single frontal view of the chest was obtained Comparison: XY CHEST PORTABLE on DOS: 06/16/24, XY CHEST PORTABLE on DOS: 03/10/23 FINDINGS: Lines and Tubes: Left-sided pacemaker/AIDC. Lungs: No focal consolidation. Pleura: No effusion. No pneumothorax. Cardiomediastinal contours: Unremarkable Bones: No acute osseous abnormality. IMPRESSION: Cardiomegaly with CHF. ATED BY: EDDIE SILVA MD DICTATED DATE/TIME: 03/07/251609 SIGNED BY: EDDIE SILVA MD SIGNED DATE/TIME: 03/07/251609 CC: Time of 1ST Reevaluation: 22:29 Reevaluation 1ST: Improved Patient Education/Counseling: Diagnosis, Treatment Family Education/Counseling: No Family Present Comments Patient presented with the above HPI.--right flank pain and renal colic---workup was initiated. patient was found with the above mentioned diagnosis. the following medications were ordered: please refer to order lists of meds and tests obtained by myself Dr. Valladares. Patient ED course and VS have been stabilized. Patient has been reassessed in the ED and remained in a stable condition. Pertinent incidental findings were discussed with the patient and/or family. Patient/family voices understanding and is agreeable with plan. Patient has been observed in the ED adequate length of time to insure improvement/stability. Escalation of care considered: Consideration of escalation to observation or admission CT scan suggested that the patient may have passed a kidney stone. Patient was also found with elevated troponin. Aspirin was ordered. Patient was ADMITTED to the medicine team for further evaluation and treatment of their presentation. All the reports of any imaging studies that were ordered by myself were reviewed by myself. Departure 1 Departure Time of Disposition: 16:33 Impression: Primary Impression: Renal colic on right side Additional Impressions: Kidney stone Elevated troponin CHF exacerbation UTI (urinary tract infection) Disposition: ADMITTED INPATIENT Admit to: [facility] Condition: Guarded Discharged With: Self Critical Care Note Critical Care Time?: Yes (55 min-critical care time only) I personally scribed for EDISON VALLADARES DO ([facility]) on 03/07/25 at 16:02. Electronically submitted by Huyen Power ([facility]). I personally scribed for EDISON VALLADARES DO ([facility]) on 03/07/25 at 19:12. Electronically submitted by Huyen Power ([email or web address] EDISON VALLADARES DO Mar 07, 2025 16:02
[2025-03-07 16:09] LABS: Basophils # (auto) 0.1 10 ^3/uL (0-0.2); Eosinophils # (auto) 0.1 10 ^3/uL (0-0.8); Eosinophils % (auto) 1.8 % (0.0-7.0); Hematocrit 45.2 % (36.0-46.0); Hemoglobin 15.3 g/dL (12.2-16.2); Lymphocytes # (auto) 1.1 10 ^3/uL (0.4-5.4); Lymphocytes % (auto) 13.4 % (10.0-50.0); Mean Corpuscular Hemoglobin 31.5 pg (28.0-32.0); Mean Corpuscular Hgb Conc. 33.8 g/dL (32.0-36.0); Mean Corpuscular Volume 93.2 fL (80.0-100.0); Monocytes # (auto) 0.6 10 ^3/uL (0-1.3); Monocytes % (auto) 7.4 % (0.0-12.0); Neutrophils # (auto) 6.3 10 ^3/uL (1.6-8.6); Neutrophils % (auto) 76.4 % (37.0-80.0); Platelet Count (auto) 254 10^3/uL (140-450); Red Blood Cells 4.85 10^6/uL (4.0-5.20); Red Cell Distribution Width 14.8 % (11.8-14.3); White Blood Cell 8.2 10^3/uL (4.4-10.8)
--- NOTE | 2025-03-07 16:09 | ECG ---
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
--- NOTE | 2025-03-07 16:13 | DVH ---
CHEST RADIOGRAPH Indication: h/o chf. Technique: Single frontal view of the chest was obtained Comparison: XY CHEST PORTABLE on DOS: 06/16/24, XY CHEST PORTABLE on DOS: 03/10/23 FINDINGS: Lines and Tubes: Left-sided pacemaker/AIDC. Lungs: No focal consolidation. Pleura: No effusion. No pneumothorax. Cardiomediastinal contours: Unremarkable Bones: No acute osseous abnormality. IMPRESSION: Cardiomegaly with CHF.
--- NOTE | 2025-03-07 16:18 | DVH ---
Exam: CT CT AB PEL WO CON-NO ORAL OR IV History: r low back pain, suprapubic pain Comparison Study: CT CT AB PEL WO CON-NO ORAL OR IV on DOS: 11/17/22, [facility] on DOS: 10/07/22 TECHNIQUE: Multidetector CT of the abdomen was performed from lung bases to pubic symphysis. Imaging was performed without IV contrast. Axial, coronal and sagittal multiplanar reformats were obtained fr om the axial data set by the technologist. Radiation Dose Information: CT Dose: CTDI volume is 26.04 mGy. Dose-length product is 1354.05 mGy*cm FINDINGS: Evaluation of solid organs is limited due to lack of intravenous contrast use. Findings: Lung Bases: No acute or significant lung base finding. Normal heart size. No pleural or pericardial effusion. Liver: The liver is normal in size. No focal lesions. Gallbladder and Biliary Tree: Cholelithiasis Spleen: Unremarkable Pancreas: The pancreas is grossly normal in appearance. Adrenal Glands: Unremarkable Kidneys: Mild right hydronephrosis. Small calculus in the calyx right kidney. 3 cm left cortical ryan l calculus. Bladder: 6.6 mm calculi consistent with a recently passed ureteral calculus there is mild right hydro nephrosis Bowel: The stomach is grossly normal in appearance. Small bowel and colon are normal in caliber and d istribution. The appendix is not visualized; however, no secondary findings of acute appendicitis id entified. Ascites: Absent Lymphadenopathy: No mesenteric, retroperitoneal or periportal lymphadenopathy. Abdominal Wall and Mesentery: Unremarkable. Vasculature: The visualized abdominal aorta is normal in size and caliber. Evaluation of abdominal a nd pelvic vessels is limited due to lack of intravenous contrast. Pelvic Organs: Unremarkable Musculoskeletal: No aggressive focal bony lesions, acute fractures or dislocation. Soft tissues: Unremarkable IMPRESSION: 1. Mild right hydronephrosis calculus in the calyx of the right kidney. There is a 6-7 mm calculus wi thin the bladder on the right. This is consistent with a recently passed ureteral calculus. 2. Cholelithiasis 3. No findings of bowel obstruction. Radiation optimization: All CT scans at this facility use at least one of these dose optimization te chniques: automated exposure control mA and/or kV adjustment per patient size (includes targeted exa ms where dose is matched to clinical indication) or iterative reconstruction.
[2025-03-07 16:29] LABS: Albumin 4.3 g/dL (3.2-4.8); Alkaline Phosphatase 94 U/L (46-116); Anion Gap 13 (5-15); BUN/Creatinine Ratio 15.4 (10.0-20.0); Bilirubin, Total 0.6 mg/dL (0.2-1.0); Blood Urea Nitrogen 14 mg/dL (9-23); Calcium 9.4 mg/dL (8.7-10.4); Carbon Dioxide 23 mmol/L (20-31); Chloride 104 mmol/L (98-107); Magnesium 1.9 mg/dL (1.6-2.6); Potassium 3.9 mmol/L (3.5-5.1); Sodium 140 mmol/L (136-145); Total Protein 7.3 g/dL (5.7-8.2)
[2025-03-07 16:32] LABS: Alanine Aminotransferase 69 U/L (7-40); Aspartate Aminotransferase 82 U/L (<34); Glucose 116 mg/dL (74-106)
[2025-03-07] MEDS: TAMSULOSIN HYDROCHLORIDE 0.4 MG CAP PO ONE (16:45)
[2025-03-07] MEDS: HYDROcodone-ACET 5/325MG TAB PO ONE (16:45)
[2025-03-07] MEDS: ASPirin-EC 325mg tab PO ONE (16:45)
--- NOTE | 2025-03-07 17:08 | DVHHPRES ---
History of Present Illness Resident Creating Document: MICKY CARROLL RESIDENT History of Present Illness This is a 49-year-old female patient with hypertension, congestive heart failure, CAD status post AICD who presented to the ER with a chief complaint of right flank pain that started earlier this morning. Patient reports intractable right flank pain radiating to the epigastric region starting earlier this afternoon, associated nausea and dizziness. She reports pain while urination. Denies fever or chills. Also says that she has been experiencing some left arm numbness and left jaw numbness associated with chest pain which is pressure type, for the past month, unrelated to exertion or deep breaths. Denies shortness of breaths, diaphoresis. Past medical history: Hypertension, congestive heart failure, CAD status post AICD, history of suicide attempt, chronic alcohol dependence, polysubstance use, NSTEMI Home medication: Lasix, Entresto, potassium tablets PCP: Patient does not remember Social history: Lives with son Patient seen and examined in the ER. Reports intractable pain and nausea. Patient admitted telemetry unit given chest pain. Smoke: <1 pack per day ALCOHOL: occassional Drugs: None Lives: with Family Review of Systems Cardiovascular: Chest Pain Gastrointestinal: Nausea, Abdominal Pain, Constipation Allergies: Coded Allergies: Penicillins (Verified Allergy, Unknown, 08/14/21) Exam Vital Signs Vital Signs Date Time Temp Pulse Resp B/P (MAP) Pulse Ox O2 Delivery O2 Flow Rate FiO2 03/07/25 15:23 97.5 115 20 123/49 (73) 96 97.5 Exam Obese female patient sitting in the chair, mild distress General: Obese, afebrile, mucosae are moist Cardiovascular: Regular S1 and S2. No murmurs, gallops or rubs. No JVD elevation. No pedal edema Respiratory: Normal B/L air entry on room air. Clear lung sounds on ausc ultation Abdomen: Soft, right flank tenderness, nondistended, normoactive bowel sounds, no rebound tenderness, no organomegaly, no masses. Right CVA tenderness Genitourinary: Deferred MSK/skin: Mobilizes 4 limbs. Skin is dry and warm Neurological: No motor, no sensitive deficits, normal speech. Pupils are isocoric and reactive. Psych/Mental Status: A/Ox3 Labs/Xrays Labs Test 03/07/25 16:30 03/07/25 15:46 Range/Units White Blood Count 8.2 4.4-10.8 10^3/uL Red Blood Count 4.85 4.0-5.20 10^6/uL Hemoglobin 15.3 12.2-16.2 g/dL Hematocrit 45.2 36.0-46.0 % Mean Corpuscular Volume 93.2 80.0-100.0 fL Mean Corpuscular Hemoglobin 31.5 28.0-32.0 pg Mean Corpuscular Hemoglobin Concent 33.8 32.0-36.0 g/dL Red Cell Distribution Width 14.8 H 11.8-14.3 % Platelet Count 254 140-450 10^3/uL Mean Platelet Volume 8.2 6.9-10.8 fL Neutrophils (%) (Auto) 76.4 37.0-80.0 % Lymphocytes (%) (Auto) 13.4 10.0-50.0 % Monocytes (%) (Auto) 7.4 0.0-12.0 % Eosinophils (%) (Auto) 1.8 0.0-7.0 % Basophils (%) (Auto) 1.0 0.0-2.0 % Neutrophils # (Auto) 6.3 1.6-8.6 10 ^3/uL Lymphocytes # (Auto) 1.1 0.4-5.4 10 ^3/uL Monocytes # (Auto) 0.6 0-1.3 10 ^3/uL Eosinophils # (Auto) 0.1 0-0.8 10 ^3/uL Basophils # (Auto) 0.1 0-0.2 10 ^3/uL Nucleated Red Blood Cells 0.0 % Sodium Level 140 136-145 mmol/L Potassium Level 3.9 3.5-5.1 mmol/L Chloride Level 104 98-107 mmol/L Carbon Dioxide Level 23 20-31 mmol/L Anion Gap 13 5-15 Blood Urea Nitrogen 14 9-23 mg/dL Creatinine 0.91 0.550-1.02 mg/dL Glomerular Filtration Rate Calc 78 >90 mL/min BUN/Creatinine Ratio 15.4 10.0-20.0 Serum Glucose 116 H 74-106 mg/dL Lactic Acid Level 1.7 0.4-2.0 mmol/L Calcium Level 9.4 8.7-10.4 mg/dL Magnesium Level 1.9 1.6-2.6 mg/dL Total Bilirubin 0.6 0.2-1.0 mg/dL Aspartate Amino Transferase (AST) 82 H <34 U/L Alanine Aminotransferase (ALT) 69 H 7-40 U/L Alkaline Phosphatase 94 46-116 U/L B-Type Natriuretic Peptide 219.54 0-100 pg/mL Total Protein 7.3 5.7-8.2 g/dL Albumin 4.3 3.2-4.8 g/dL Assessment/Plan Assessment/Plan CT abdomen: 1. Mild right hydronephrosis calculus in the calyx of the right kidney. There is a 6-7 mm calculus within the bladder on the right. This is consistent with a recently passed ureteral calculus. 2. Cholelithiasis 3. No findings of bowel obstruction. Acute abdominal pain secondary to nephrolithiasis Intractable nausea Avoiding IV fluids given severe systolic CHF Tamsulosin 0.4 mg daily Follow up with UA, UDS, kidney ultrasound in a.m. IV ceftriaxone daily Cholelithiasis rule out cholecystitis Mild transaminitis Consider liver ultrasound Chest pain rule out ACS NSTEMI type 1 versus type 2 Hypertension Congestive heart failure-EF Dilated cardiomyopathy likely drug-induced History of polysubstance use Troponin 133 initial BNP 2 1 9 EKG shows sinus rhythm, nonspecific ST changes which were seen in previous EKG Chest x-ray shows cardiomegaly with congestive heart failure Resume home medication including Coreg b.i.d., lisinopril 5 mg daily, ranolazine 500 mg b.i.d., Entresto b.i.d., Lasix 40 mg IV daily Aspirin and atorvastatin daily Echocardiogram 06/18/2024 showed DILATED ALL CARDIAC CHAMBERS SEVERE GLOBAL HYPOKINESIS OF ALL CARDIAC CHAMBERS LV EJECTION FRACTION IS ONLY 10% DILATED CARDIOMYOPATHY NORMAL VALVES NO EFFUSION Chronic alcohol dependence Counseled regarding cessation for more than 20 minutes History of suicide attempt-no HI/SI Monitor Lovenox 40 mg sc daily His creatinine was Fluid restriction Strict I&Os Liquid diet Plan discussed with patient, son at bedside in which all questions have been answered Goals of care discussed for more than 20 minutes, full code status Case discussed with Dr. Ramires Plan discussed with: Patient Date of Service: Mar 07, 2025 Billing Provider: RICH ZHONG MD Common Visit Codes: [id number] INP/OBS CARE (HIGH) Secondary Visit Codes: [id number] CARE PLAN 30 MINUTES MICKY CARROLL Mar 07, 2025 17:08 RICH ZHONG MD Mar 14, 2025 10:17
[2025-03-07] MEDS ORDERED: NITROGLYCERIN 0.4 MG SL TAB SL PRN (17:15)
[2025-03-07] MEDS: ACETAMINOPHEN 325 MG TAB PO ONE (17:30)
[2025-03-07] MEDS ORDERED: ACETAMINOPHEN 500 MG TAB or CAP PO PRN (17:30)
[2025-03-07] MEDS ORDERED: SODIUM CHLORIDE 0.9% 1,000 ML IV ONE (17:30)
[2025-03-07] MEDS: KETOROLAC TROMETH 30 MG/ML 1ML VIAL IV ONE (17:30)
[2025-03-07 17:43] LABS: Urine Bacteria FEW /hpf (None Seen); Urine Blood 3+ /uL (Negative); Urine Clarity Ex.Turbid (Clear); Urine Color Light-Yellow (Yellow); Urine Protein, UAD TRACE (Negative); Urine Specific Gravity 1.014 (1.001-1.035); Urine Squamous Epithelial Cell FEW /hpf (<5); Urine Urobilinogen Normal (Negative); Urine WBC 25 /HPF (0-5); Urine pH 5.5 (5.0-9.0)
[2025-03-07 17:52] LABS: Amphetamine Screen, Urine Neg (NEGATIVE); Barbiturate Scree,Urine Neg (NEGATIVE); Benzodiazephine Screen, Urine Neg (NEGATIVE); Cannabinoid Screen, Urine Neg (NEGATIVE); Cocaine Screen, Urine Neg (NEGATIVE); Opiate Scree,Urine Neg (NEGATIVE); Phencyclidine Screen, Urine Neg (NEGATIVE)
[2025-03-07 20:21] LABS: COVID19 ANTIGEN SOFIA FIA NEGATIVE (NEGATIVE); Rapid Influenza A Negative (Negative); Rapid Influenza B Negative (Negative)
[2025-03-07] MEDS: FUROSEMIDE 40 MG/4 ML VIAL IV ONE (22:00)
[2025-03-07] MEDS: fentaNYL CITRATE 100 MCG/2 ML VL IV ONE (22:01)
[2025-03-07] MEDS: SACUBITRIL-VALSARTAN 24mg/26mg TAB PO SCH (22:12)
[2025-03-07] MEDS: RANOLAZINE ER 500 MG TAB PO SCH (22:12)
[2025-03-07] MEDS: ATORVASTATIN 20 MG TAB PO SCH (22:13)
[2025-03-07] MEDS: CARVEDILOL 3.125 MG TAB PO SCH (22:13)
[2025-03-08] VITALS (10 sets, daily range): BP systolic 108–127; BP diastolic 66–89; PULSE 78–101; RESP 16–20; TEMP 97.5–98.5; O2SAT 92–97
[2025-03-08] MEDS ORDERED: MESA0.37 PO (03:58)
[2025-03-08] MEDS: MORPHINE SULFATE INJ 2 MG/ml SYRG IV PRN (04:00)
[2025-03-08 06:16] LABS: Basophils # (auto) 0 10 ^3/uL (0-0.2); Basophils % (auto) 0.6 % (0.0-2.0); Eosinophils # (auto) 0.3 10 ^3/uL (0-0.8); Eosinophils % (auto) 3.3 % (0.0-7.0); Hematocrit 41.8 % (36.0-46.0); Hemoglobin 14.3 g/dL (12.2-16.2); Lymphocytes % (auto) 13.4 % (10.0-50.0); Mean Corpuscular Hemoglobin 31.5 pg (28.0-32.0); Mean Corpuscular Hgb Conc. 34.1 g/dL (32.0-36.0); Mean Corpuscular Volume 92.5 fL (80.0-100.0); Monocytes # (auto) 0.6 10 ^3/uL (0-1.3); Monocytes % (auto) 7.3 % (0.0-12.0); Neutrophils # (auto) 5.8 10 ^3/uL (1.6-8.6); Neutrophils % (auto) 75.4 % (37.0-80.0); Nucleated Red Blood Cells % 0.1 %; Platelet Count (auto) 231 10^3/uL (140-450); Red Blood Cells 4.53 10^6/uL (4.0-5.20); Red Cell Distribution Width 14.4 % (11.8-14.3); White Blood Cell 7.8 10^3/uL (4.4-10.8)
[2025-03-08 06:35] LABS: Albumin 3.6 g/dL (3.2-4.8); Alkaline Phosphatase 74 U/L (46-116); Anion Gap 10 (5-15); BUN/Creatinine Ratio 11.3 (10.0-20.0); Blood Urea Nitrogen 12 mg/dL (9-23); Carbon Dioxide 25 mmol/L (20-31); Chloride 102 mmol/L (98-107); Glucose 95 mg/dL (74-106); Sodium 137 mmol/L (136-145); Total Protein 6.5 g/dL (5.7-8.2)
[2025-03-08 06:36] LABS: Bilirubin, Total 1.2 mg/dL (0.2-1.0)
[2025-03-08 06:37] LABS: Alanine Aminotransferase 48 U/L (7-40); Aspartate Aminotransferase 51 U/L (<34); Calcium 8.5 mg/dL (8.7-10.4); Potassium 3.2 mmol/L (3.5-5.1)
--- NOTE | 2025-03-08 07:05 | ECG ---
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
[2025-03-08] MEDS: FUROSEMIDE 40 MG/4 ML VIAL IV SCH (10:00)
[2025-03-08] MEDS ORDERED: LISINOPRIL 5 MG TAB PO SCH (10:00)
[2025-03-08] MEDS: POTASSIUM EFFERVESENT TAB 25 MEQ PO ONE (10:25)
[2025-03-08] MEDS: HYDROcodone-ACET 5/325MG TAB PO PRN (10:26)
[2025-03-08] MEDS: ASPirin-EC 81 mg tab PO SCH (10:26)
[2025-03-08] MEDS: ERGOCALCIFEROL 50,000 UNIT(1.25MG) CAP PO SCH (10:26)
[2025-03-08] MEDS: ENOXAPARIN SOD 40 MG/0.4 ML SYRINGE SC SCH (10:27)
[2025-03-08] MEDS: cefTRIAXone 1GM/50ML D5W 50 ML IV SCH (10:27)
--- NOTE | 2025-03-08 13:02 | DVH ---
US BLADDER History: POSTVOID RESIDUAL Comparison: CT Abdomen Pelvis 03/07/25 Date: 03/08/2025 11:56 AM Technique: Grayscale and color doppler ultrasound of the pelvis was obtained. Pre-and postvoid images of the bladder were obtained. Findings: Prevoid bladder is well distended and unremarkable. The postvoid bladder, demonstrates no significan t post void residual. 6 mm calculus in the distal right ureter at the ureterovesicular junction. The ureteral jets are not visualized. Trace debris in the urinary bladder. Posterior to the urinary bladder there is a 7.5 X 5. 07 .6 cm cystic structure, better seen on recent CT IMPRESSION: 1. No significant post void residual noted. 2. A 6 mm calculus in the distal right ureter at the ureterovesicular junction. 3. Trace debris in the urinary bladder, correlate with urinalysis for cystitis. 4. Redemonstration of a 7.5 cm cystic mass in the pelvis posterior to the bladder
--- NOTE | 2025-03-08 14:13 | DVHCONRES ---
Date Seen: Mar 08, 2025 Resident Creating Document: SO BOWMAN RESIDENT Referring Physician Dr. Man Reason for Consultation NSTEMI 1 versus 2, chest pain with left arm numbness, EF 10% History of Present Illness Patient is a 49-year-old female with past medical history of heart failure with reduced ejection fraction 10%, hypertension, dyslipidemia, s/p AICD placement, gastritis, who comes in due to right flank pain. According to the patient, yesterday she started experiencing a right-sided flank pain which she described as 10/10 in intensity, constant in contraction like in nature with radiation to the back associated with nausea. Patient also notes that for the last 3 days she has been having tightness around her left arm and left hand cramps along with the wrist pain. On review of systems patient is complaining of fatigue, orthopnea, palpitations, nausea, dysuria, depression and anxiety. Serial troponins were 133, 148, 178, 191. Serum BNP was 219, CXR showed cardiomegaly with CHF. EKG showed some T-wave inversions which were present on previous EKGs as well, new T-wave inversion in lead 1. Past Medical History reduced ejection fraction 10%, hypertension, dyslipidemia, s/p AICD placement, gastritis Past Surgical History Hysterectomy, , left knee surgery Family History: Alcoholism Diabetes mellitus G8 MOTHER G8 FATHER FH: Parkinson's disease G8 MOTHER FH: thyroid disease G8 MOTHER Hypertension G8 FATHER Social History Smoking: Quit 5 years ago, prior to that was smoking half a pack per day for 20 years Alcohol: 12 drinks per week for the last 25 years, last drink 4 days ago Drugs: Denies, remote history of methamphetamine abuse Maternal grandfather from a heart attack Mother from stroke Allergies: Coded Allergies: Penicillins (Verified Allergy, Unknown, 08/14/21) Home Meds Active Scripts Ranolazine (Ranexa) 500 Mg Tab, 500 MG PO BID for 60 Days, #120 TAB Prov: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 10/08/22 Reported Medications Ferrous Sulfate (Ferrous Sulfate) 325 Mg Tab, 1 TAB PO TID for 30 Days, #90 03/08/25 Potassium Chloride (Potassium Chloride ER) 10 Meq Tab, 1 TAB PO TID for 90 Days, #270 03/08/25 Aspirin (Aspirin Low Dose) 81 Mg Tab, 1 TAB PO DAILY for 90 Days, #90 03/08/25 Senna (Senna-Time) 8.6 Mg Tab, 2 TAB PO QHSP for 90 Days, #180 03/08/25 Furosemide (Furosemide) 40 Mg Tab, 1 TAB PO BID for 90 Days, #180 03/08/25 Mesalamine (Mesalamine Dr) 800 Mg Tab, 1 TAB PO TID for 30 Days, #90 03/08/25 Sacubitril-Valsartan (Entresto 24-26 mg) 1 Tab Tab, 1 TAB PO BID 10/06/22 Carvedilol (Carvedilol) 6.25 Mg Tab, 6.25 MG PO BID for 30 Days, MG 08/15/21 Lisinopril (Lisinopril) 5 Mg Tab, 5 MG PO DAILY for 30 Days, MG 08/15/21 Atorvastatin Calcium (ATORVASTATIN CALCIUM) 20 Mg Tab, 1 TAB PO HS, #30 TAB 5 Re fills 08/15/21 Current Medications Current Medications Medications (Trade) Dose Ordered Sig/Ilana Route PRN Reason Start Time Stop Time Status Last Admin Nitroglycerin (Ntrostat Sublingual) 0.4 mg Q5MINP PRN SL FOR CHEST PAIN 03/07/25 17:15 Morphine Sulfate 2 mg Q30M PRN IV FOR CHEST PAIN 03/07/25 17:15 Acetaminophen (Tylenol Tablet Or Capsule) 500 mg Q4HPRN PRN PO MILD PAIN (1-3 PAIN SCALE) 03/07/25 17:30 Acetaminophen/ Hydrocodone Bitart ([employer] 5/325MG Tab) 1 tab Q4HPRN PRN PO MODERATE PAIN (4-6 PAIN SCALE) 03/07/25 17:30 03/08/25 10:26 Morphine Sulfate 1 mg Q4HPRN PRN IV SEVERE PAIN (7-10 PAIN SCALE) 03/07/25 17:30 03/08/25 04:00 Aspirin (Ecotrin Enteric Coated Tablet) 81 mg DAILY PO 03/08/25 10:00 03/08/25 10:26 Atorvastatin Calcium (Lipitor) 40 mg HS PO 03/07/25 22:00 03/07/25 22:13 Tamsulosin HCl (Flomax) 0.4 mg QPM PO 03/08/25 18:00 Ceftriaxone Sodium 50 ml @ 100 mls/hr DAILY@09 IV 03/08/25 09:00 03/08/25 10:27 Lisinopril (Zestril Tablet) 5 mg DAILY PO 03/08/25 10:00 03/07/25 18:34 DC Ranolazine (Ranexa ER) 500 mg BID PO 03/07/25 22:00 03/08/25 10:25 Sacubitril/ Valsartan (Entresto 24-26 Mg tab) 1 tab BID PO 03/07/25 22:00 03/08/25 10:26 Carvedilol (Coreg Tablet) 6.25 mg Q12HR PO 03/07/25 22:00 03/08/25 12:21 Furosemide (Lasix Injection) 40 mg DAILY IV 03/08/25 10:00 Enoxaparin Sodium (Lovenox) 40 mg DAILY SC 03/08/25 10:00 03/08/25 10:27 Ergocalciferol (Vitamin D 50,000 Unit) 50,000 unit Q7D PO 03/08/25 08:00 03/08/25 10:26 Review of Systems Patient seen and examined at bedside. Patient is alert and oriented to time, place person and responding to all questions. General: Fatigue Eyes: No Pain, No Vision change, No Conjunctivae inflammation, No Eyelid inflammation, No Other, No Redness ENT: No Ear pain, No Ear discharge, No Nose pain, No Nose discharge, No Nose congestion, No Mouth pain, No Mouth swelling, No Throat pain, No Throat swelling, No Other Cardiovascular: No Chest Pain, Palpitations, Orthopnea, No Paroxysmal No Dyspnea, No Edema, No Lt Headedness, No Other Respiratory: No Cough, No Dry, No Shortness of breath, SOB with exertion, No Wheezing, No Hemoptysis, No Pleuritic Pain, No Sputum, No Other Gastrointestinal: Nausea, No Vomiting, No Abdominal Pain, No Diarrhea, No Constipation, No Melena, No Hematochezia, No Other Genitourinary: No Frequency, No Incontinence, No Hematuria, No Retention, No Other Musculoskeletal: No other, No neck pain, No shoulder pain, No arm pain, No back pain, No hand pain, No leg pain, No foot pain Skin: No Rash, No Lesions, No Jaundice, No Bruising, No Other Vital Signs Vital Signs Date Time Temp Pulse Resp B/P (MAP) Pulse Ox O2 Delivery O2 Flow Rate FiO2 03/08/25 13:00 97.8 94 17 116/77 (90) 94 97.8 03/08/25 03:40 Room Air* 0 21 Physical Exam General Appearance: Cooperative. Well developed. Well nourished. NAD Head Exam: Normal inspection Neck Exam: Normal inspection. Non-tender. Normal alignment Pulmonary/Respiratory: Chest non-tender. Clear bilateral breath sounds, trace bibasilar crackles, no wheezing. Cardiovascular/Chest: Regular rate and rhythm. No murmurs. JVD. Peripheral Pulses: 2+ Radial (R). 2+ Radial (L). 2+ Pedal (R). 2+ Pedal (L) Abdominal Exam: Normal bowel sounds. Soft. normal abdomen, no visible veins, right-sided costovertebral angle tenderness No hepatospenomegaly. No masses Lower extremities: Trace lower extremity pitting edema Neuro/Mental Status: A&O x4. Coherent. Thoughts/Psych: Normal thought pattern. Appropriate mood and affect. Good j udgement and insight Skin Exam: Normal inspection. Normal color. Warm. Dry Labs/Diagnostic Data Labs Test 03/08/25 05:10 03/07/25 18:54 03/07/25 17:00 03/07/25 15:46 Range/Units White Blood Count 7.8 4.4-10.8 10^3/uL Red Blood Count 4.53 4.0-5.20 10^6/uL Hemoglobin 14.3 12.2-16.2 g/dL Hematocrit 41.8 36.0-46.0 % Mean Corpuscular Volume 92.5 80.0-100.0 fL Mean Corpuscular Hemoglobin 31.5 28.0-32.0 pg Mean Corpuscular Hemoglobin Concent 34.1 32.0-36.0 g/dL Red Cell Distribution Width 14.4 H 11.8-14.3 % Platelet Count 231 140-450 10^3/uL Mean Platelet Volume 8.4 6.9-10.8 fL Neutrophils (%) (Auto) 75.4 37.0-80.0 % Lymphocytes (%) (Auto) 13.4 10.0-50.0 % Monocytes (%) (Auto) 7.3 0.0-12.0 % Eosinophils (%) (Auto) 3.3 0.0-7.0 % Basophils (%) (Auto) 0.6 0.0-2.0 % Neutrophils # (Auto) 5.8 1.6-8.6 10 ^3/uL Lymphocytes # (Auto) 1.0 0.4-5.4 10 ^3/uL Monocytes # (Auto) 0.6 0-1.3 10 ^3/uL Eosinophils # (Auto) 0.3 0-0.8 10 ^3/uL Basophils # (Auto) 0 0-0.2 10 ^3/uL Nucleated Red Blood Cells 0.1 % Sodium Level 137 136-145 mmol/L Potassium Level 3.2 L 3.5-5.1 mmol/L Chloride Level 102 98-107 mmol/L Carbon Dioxide Level 25 20-31 mmol/L Anion Gap 10 5-15 Blood Urea Nitrogen 12 9-23 mg/dL Creatinine 1.06 H 0.550-1.02 mg/dL Glomerular Filtration Rate Calc 65 >90 mL/min BUN/Creatinine Ratio 11.3 10.0-20.0 Serum Glucose 95 74-106 mg/dL Calcium Level 8.5 L 8.7-10.4 mg/dL Total Bilirubin 1.2 H 0.2-1.0 mg/dL Aspartate Amino Transferase (AST) 51 H <34 U/L Alanine Aminotransferase (ALT) 48 H 7-40 U/L Alkaline Phosphatase 74 46-116 U/L Troponin I High Sensitivity 191 *H </=34 ng/L Total Protein 6.5 5.7-8.2 g/dL Albumin 3.6 3.2-4.8 g/dL Influenza Type A Antigen Negative Negative Influenza Type B Antigen Negative Negative SARS-CoV-2 Antigen (Rapid) Negative NEGATIVE Urine Color Light-yellow Yellow Urine Clarity Ex.turbid Clear Urine pH 5.5 5.0-9.0 Urine Specific [place] 1.014 1.001-1.035 Urine Protein Trace H Negative Urine Ketones Negative Negative Urine Blood 3+ H Negative /uL Urine Nitrite Negative Negative Urine Bilirubin Negative Negative Urine Urobilinogen Normal Negative mg/dL Urine Leukocyte Esterase Negative Negative /uL Urine RBC 271 0 - 4 /hpf Urine Microscopic WBC 25 H 0-5 /HPF Urine Squamous Epithelial Cells Few <5 /hpf Urine Uric Acid Crystals Mod None Seen /hpf Urine Bacteria Few H None Seen /hpf Urine Glucose Normal Normal mg/dL Urine Opiates Screen Neg NEGATIVE Urine Fentanyl Screen Neg NEGATIVE Urine Barbiturates Screen Neg NEGATIVE Urine Phencyclidine Screen Neg NEGATIVE Urine Amphetamines Screen Neg NEGATIVE Urine Benzodiazepines Screen Neg NEGATIVE Urine Cocaine Screen Neg NEGATIVE Urine Cannabinoids Screen Neg NEGATIVE Hemoglobin A1c 5.7 <5.7 % A1C Lactic Acid Level 1.7 0.4-2.0 mmol/L Magnesium Level 1.9 1.6-2.6 mg/dL B-Type Natriuretic Peptide 219.54 0-100 pg/mL Vitamin B12 Level 488 211-911 pg/mL Vitamin D 25-Hydroxy 11.6 L 30.0-100 ng/mL Thyroid Stimulating Hormone (TSH) 0.83 0.55-4.78 uIU/mL Assessment NSTEMI likely type 2 secondary to decompensated heart failure with reduced ejection fraction, NYHA class 3 History of nonischemic cardiomyopathy/dilated cardiomyopathy History of methamphetamine abuse Current alcohol use disorder Obesity Plan: Repeat echocardiogram AICD last interrogated in 2023 at [facility] Echocardiogram from May 2024 shows dilated cardiac chambers, severe global hypokinesis of all cardiac chambers. Ejection fraction 10%. Dilated cardiomyopathy. Continue IV Lasix Continue GDMT as tolerated Negative drug screen Daily weights strict I & Os Rest of the management as per hospitalist Thank you so much for the opportunity to consult on your patient. Cardiology team will follow the patient. In case of any questions or concerns please feel free to reach out. Plan discussed with Dr. Navarro Plan discussed with: Patient, Son, Other (RN) Visit Coding Cardiology RES Date of Service: Mar 08, 2025 Billing Provider: STEPHANY NAVARRO MD Cardiology Common Codes: [id number] INP/OBS CARE (High) SO BOWMAN RESIDENT Mar 08, 2025 14:13
--- NOTE | 2025-03-08 14:48 | DVH ---
ABDOMINAL ULTRASOUND CLINICAL HISTORY: transamnitis,hydronephrosis TECHNIQUE: Multiple grayscale and color Doppler ultrasound images were obtained of the abdomen. WID: COMPARISON: CT abdomen and pelvis from 11/17/2022 FINDINGS: Liver and Biliary System: Increased echogenicity, normal size measuring 20.9 cm. No focal hepatic observations. No intrahepatic bile duct dilatation. The common duct measures 0.4 cm at the elizabeth he patis. The gallbladder is normal caliber. Sonographic roy's sign is negative. There is choleli thiasis. Pancreas: Visualized portions are unremarkable. Spleen: is within normal limits. Kidneys: The right kidney is 10.6 cm and the left kidney is 10.6 cm. Nonobstructing right lower anita e renal calculus which measures 8 mm. Left lower pole renal cyst measures 2 cm. Left upper pole renal cyst measures 3.4 cm. Nonobstructing left lower pole renal calculus measures 1 cm. Mild right hydron ephrosis. Aorta: Visualized portions are normal in caliber. IVC: Visualized portions are normal in caliber. Peritoneal Space: No abdominal ascites. IMPRESSION: 1. Mild right hydronephrosis. 2. Nonobstructing bilateral renal calculi. 3. Mild hepatomegaly with hepatic steatosis. 4. Cholelithiasis. 5. Left renal cysts.
--- NOTE | 2025-03-08 15:37 | DVHPNRES ---
Progress Note Date Seen: Mar 08, 2025 Resident Creating Document: MICKY CARROLL RESIDENT Medical Necessity Reason Pt with a Central, PICC or Fol: No Subjective Review of Systems This is a 49-year-old female patient with hypertension, congestive heart failure, CAD status post AICD who presented to the ER with a chief complaint of right flank pain that started earlier this morning. Patient reports intractable right flank pain radiating to the epigastric region starting earlier this afternoon, associated nausea and dizziness. She reports pain while urination. Denies fever or chills. Also says that she has been experiencing some left arm numbness and left jaw numbness associated with chest pain which is pressure type, for the past month, unrelated to exertion or deep breaths. Denies shortness of breaths, diaphoresis. Past medical history: Hypertension, congestive heart failure, CAD status post AICD, history of suicide attempt, chronic alcohol dependence, polysubstance use, NSTEMI Home medication: Lasix, Entresto, potassium tablets PCP: Patient does not remember Social history: Lives with son 03/07-Patient seen and examined in the ER. Reports intractable pain and nausea. Patient admitted telemetry unit given chest pain. 03/08-patient seen and examined. Reports pressure-type chest pain, abdominal pain getting better. Troponin slightly trending up, cardiology consulted. Objective vital signs Vital Sign Date Time Temp Pulse Resp B/P (MAP) Pulse Ox O2 Delivery O2 Flow Rate FiO2 03/08/25 14:17 83 18 112/75 03/08/25 13:00 97.8 94 97.8 03/08/25 03:40 Room Air* 0 21 Total Intake and Output 03/07/25 03/07/25 03/08/25 15:00 23:00 07:00 Intake Total 200 ml Balance 200 ml medications Current Medications Medications Dose Ordered Sig/Ilana Route Start Time Stop Time Status Last Admin Dose Admin Nitroglycerin 0.4 mg Q5MINP PRN SL 03/07/25 17:15 Morphine Sulfate 2 mg Q30M PRN IV 03/07/25 17:15 Acetaminophen 500 mg Q4HPRN PRN PO 03/07/25 17:30 Acetaminophen/ Hydrocodone Bitart 1 tab Q4HPRN PRN PO 03/07/25 17:30 03/08/25 10:26 1 TAB Morphine Sulfate 1 mg Q4HPRN PRN IV 03/07/25 17:30 03/08/25 14:17 1 MG Aspirin 81 mg DAILY PO 03/08/25 10:00 03/08/25 10:26 81 MG Atorvastatin Calcium 40 mg HS PO 03/07/25 22:00 03/07/25 22:13 40 MG Tamsulosin HCl 0.4 mg QPM PO 03/08/25 18:00 Ceftriaxone Sodium 50 ml @ 100 mls/hr DAILY@09 IV 03/08/25 09:00 03/08/25 10:27 100 MLS/HR Ranolazine 500 mg BID PO 03/07/25 22:00 03/08/25 10:25 500 MG Sacubitril/ Valsartan 1 tab BID PO 03/07/25 22:00 03/08/25 10:26 1 TAB Carvedilol 6.25 mg Q12HR PO 03/07/25 22:00 03/08/25 12:21 6.25 MG Furosemide 40 mg DAILY IV 03/08/25 10:00 Enoxaparin Sodium 40 mg DAILY SC 03/08/25 10:00 03/08/25 10:27 40 MG Ergocalciferol 50,000 unit Q7D PO 03/08/25 08:00 03/08/25 10:26 50,000 UNIT Examination Obese female patient sitting in the chair, mild distress General: Obese, afebrile, mucosae are moist Cardiovascular: Regular S1 and S2. No murmurs, gallops or rubs. No JVD elevation. No pedal edema Respiratory: Normal B/L air entry on room air. Clear lung sounds on auscultation Abdomen: Soft, right flank tenderness, nondistended, normoactive bowel sounds, no rebound tenderness, no organomegaly, no masses. Right CVA tenderness Genitourinary: Deferred MSK/skin: Mobilizes 4 limbs. Skin is dry and warm Neurological: No motor, no sensitive deficits, normal speech. Pupils are isocoric and reactive. Psych/Mental Status: A/Ox3 laboratory and microbiology Laboratory Tests 03/08/25 05:10 Test 03/08/25 05:10 Range/Units Serum Glucose 95 74-106 mg/dL Labs and/or images reviewed: Labs reviewed by me, Image(s) reviewed by me Problem List/Assessment/Plan Problem List/Assessment/Plan CT abdomen: 1. Mild right hydronephrosis calculus in the calyx of the right kidney. There is a 6-7 mm calculus within the bladder on the right. This is consistent with a recently passed ureteral calculus. 2. Cholelithiasis 3. No findings of bowel obstruction. Acute abdominal pain secondary to nephrolithiasis Intractable nausea Mild right-sided hydronephrosis Nonobstructing bilateral renal calculi Left renal cyst Acute complicated cystitis Avoiding IV fluids given severe systolic CHF Tamsulosin 0.4 mg daily UDS negative, UA shows 25 WBCs, few bacteria. kidney ultrasound shows mild right hydronephrosis, nonobstructing bilateral renal calculi, mild hepatomegaly with hepatic steatosis, left renal cyst. IV ceftriaxone daily Ballard catheter ordered 03/08 Cholelithiasis ruled out cholecystitis Mild transaminitis secondary to steatosis Liver ultrasound shows mild hepatomegaly with the hepatic steatosis. No CBD dilation. Chest pain rule out ACS NSTEMI type 1 versus type 2 Hypertension Systolic Congestive heart failure-EF Dilated cardiomyopathy likely drug-induced History of polysubstance use Troponin 133 , trending up to 190, cardiology consulted Echocardiogram pending BNP 2 1 9 EKG shows sinus rhythm, nonspecific ST changes which were seen in previous EKG Chest x-ray shows cardiomegaly with congestive heart failure Resume home medication including Coreg b.i.d., lisinopril 5 mg daily, ranolazine 500 mg b.i.d., Entresto b.i.d., Lasix 40 mg IV daily Aspirin and atorvastatin daily Echocardiogram 06/18/2024 showed DILATED ALL CARDIAC CHAMBERS SEVERE GLOBAL HYPOKINESIS OF ALL CARDIAC CHAMBERS LV EJECTION FRACTION IS ONLY 10% DILATED CARDIOMYOPATHY NORMAL VALVES NO EFFUSION Chronic alcohol dependence Counseled regarding cessation for more than 20 minutes History of suicide attempt-no HI/SI Monitor Vitamin-D deficiency Supplemented Lovenox 40 mg sc daily Fluid restriction Strict I&Os Cardiac diet Plan discussed with patient, son at bedside in which all questions have been answered Goals of care discussed for more than 20 minutes, full code status Case discussed with Dr. Ramires. Cardiology consultation pending Plan discussed with: Patient My Orders My Orders Orders - MICKY CARROLL RESIDENT Procedure Category Date Status Time Admit ADMIT 03/07/25 Transmitted 17:06 Nitroglycerin PHA 03/07/25 In Process Sublingual (Ntrostat 17:15 Morphine Sulfate PHA 03/07/25 In Process Injection 17:15 Oxygen By Nasal RT 03/07/25 Transmitted Cannula 17:06 Acetaminophen Tab Or PHA 03/07/25 In Process Cap (Tylenol Tablet 17:30 Hydrocodone-Acet PHA 03/07/25 In Process 5/325mg Tab ([place] 17:30 Morphine Sulfate PHA 03/07/25 In Process Injection 17:30 Full Liq Diet DIET 03/07/25 Transmitted Dinner Aspirin Enteric PHA 03/08/25 In Process Coated Tablet 10:00 Atorvastatin (Lipitor) PHA 03/07/25 In Process 22:00 Ceftriaxone 1gm/50ml PHA 03/08/25 In Process D5w (Rocephin) 09:00 Strict I & O THERESA 03/07/25 In Process 17:21 Maintain Fluid THERESA 03/07/25 In Process Restrictions 17:21 Ranolazine (Ranexa Er) PHA 03/07/25 In Process 22:00 Sacubitril-Valsartan PHA 03/07/25 In Process (Entresto 24-26 Mg 22:00 Carvedilol Tablet PHA 03/07/25 In Process (Coreg Tablet) 22:00 Tamsulosin PHA 03/08/25 In Process Hydrochloride (Flomax) 18:00 Furosemide Injection PHA 03/08/25 In Process (Lasix Injection) 10:00 Enoxaparin Sodium PHA 03/08/25 In Process (Lovenox) 10:00 Ergocalciferol PHA 03/08/25 In Process (Vitamin D 50,000 08:[address] [place] THERESA 03/08/25 In Process 11:32 Abdomen Complete US 03/08/25 Resulted Sonogram 11:32 Bladder US 03/08/25 Resulted 11:32 * Cardiology Consult CONS 03/08/25 Transmitted 13:10 Date of Service: Mar 08, 2025 Billing Provider: RICH ZHONG MD Common Visit Codes: [id number] INP/OBS CARE(HIGH) MICKY CARROLL RESIDENT Mar 08, 2025 15:37 RICH ZHONG MD Mar 14, 2025 10:19
[2025-03-08] MEDS: TAMSULOSIN HYDROCHLORIDE 0.4 MG CAP PO SCH (19:06)
[2025-03-09] VITALS (8 sets, daily range): BP systolic 102–127; BP diastolic 61–72; PULSE 61–98; RESP 18–20; TEMP 97.5–98; O2SAT 90–95
--- NOTE | 2025-03-09 00:27 | DVHINCON2 ---
Date Seen: Mar 08, [address] Man Reason for Consultation NSTEMI 1 versus 2, chest pain with left arm numbness, EF 10% History of Present Illness This is a 49 year old female with a PMH of heart failure with reduced ejection fraction 10%, hypertension, dyslipidemia, s/p AICD placement, gastritis, who comes in due to right flank pain. According to the patient, yesterday she started experiencing a right-sided flank pain which she described as 10/10 in intensity, constant in contraction like in nature with radiation to the back associated with nausea. Patient also notes that for the last 3 days she has been having tightness around her left arm and left hand cramps along with the wrist pain. Patient endorses fatigue, orthopnea, palpitations, nausea, dysuria, depression and anxiety. Serial troponins were 133, 148, 178, 191. Serum BNP was 219. Chest x-ray showed cardiomegaly with CHF. EKG showed some T-wave inversions which were present on previous EKGs as well, new T-wave inversion in lead 1. Patient was admitted to the hospital. I am asked to consult on this patient. Past Medical History reduced ejection fraction 10%, hypertension, dyslipidemia, s/p AICD placement, gastritis Past Surgical History Hysterectomy, , left knee surgery Family History: Alcoholism Diabetes mellitus G8 MOTHER G8 FATHER FH: Parkinson's disease G8 MOTHER FH: thyroid disease G8 MOTHER Hypertension G8 FATHER Allergies: Coded Allergies: Penicillins (Verified Allergy, Unknown, 08/14/21) Home Meds Active Scripts Ranolazine (Ranexa) 500 Mg Tab, 500 MG PO BID for 60 Days, #120 TAB Prov:ZOEY THACKER LEAD FORMER 10/08/22 Reported Medications Ferrous Sulfate (Ferrous Sulfate) 325 Mg Tab, 1 TAB PO TID for 30 Days, #90 03/08/25 Potassium Chloride (Potassium Chloride ER) 10 Meq Tab, 1 TAB PO TID for 90 Days, #270 03/08/25 Aspirin (Aspirin Low Dose) 81 Mg Tab, 1 TAB PO DAILY for 90 Days, #90 03/08/25 Senna (Senna-Time) 8.6 Mg Tab, 2 TAB PO QHSP for 90 Days, #180 03/08/25 Furosemide (Furosemide) 40 Mg Tab, 1 TAB PO BID for 90 Days, #180 03/08/25 Mesalamine (Mesalamine Dr) 800 Mg Tab, 1 TAB PO TID for 30 Days, #90 03/08/25 Sacubitril-Valsartan (Entresto 24-26 mg) 1 Tab Tab, 1 TAB PO BID 10/06/22 Carvedilol (Carvedilol) 6.25 Mg Tab, 6.25 MG PO BID for 30 Days, MG 08/15/21 Lisinopril (Lisinopril) 5 Mg Tab, 5 MG PO DAILY for 30 Days, MG 08/15/21 Atorvastatin Calcium (ATORVASTATIN CALCIUM) 20 Mg Tab, 1 TAB PO HS, #30 TAB 5 Refills 08/15/21 Current Medications Current Medications Medications (Trade) Dose Ordered Sig/Ilana Route PRN Reason Start Time Stop Time Status Last Admin Aspirin (Ecotrin Enteric Coated Tablet) 81 mg DAILY PO 03/08/25 10:00 03/08/25 10:26 Tamsulosin HCl (Flomax) 0.4 mg QPM PO 03/08/25 18:00 03/08/25 19:06 Ceftriaxone Sodium 50 ml @ 100 mls/hr DAILY@09 IV 03/08/25 09:00 03/08/25 10:27 Lisinopril (Zestril Tablet) 5 mg DAILY PO 03/08/25 10:00 03/07/25 18:34 DC Furosemide (Lasix Injection) 40 mg DAILY IV 03/08/25 10:00 Enoxaparin Sodium (Lovenox) 40 mg DAILY SC 03/08/25 10:00 03/08/25 10:27 Ergocalciferol (Vitamin D 50,000 Unit) 50,000 unit Q7D PO 03/08/25 08:00 03/08/25 10:26 Review of Systems General: Fatigue Eyes: No Pain, No Vision change, No Conjunctivae inflammation, No Eyelid inflammation, No Other, No Redness ENT: No Ear pain, No Ear discharge, No Nose pain, No Nose discharge, No Nose congestion, No Mouth pain, No Mouth swelling, No Throat pain, No Throat swelling, No Other Cardiovascular: No Chest Pain, Palpitations, Orthopnea, No Paroxysmal No Dyspnea, No Edema, No Lt Headedness, No Other Respiratory: No Cough, No Dry, No Shortness of breath, SOB with exertion, No Wheezing, No Hemoptysis, No Pleuritic Pain, No Sputum, No Other Gastrointestinal: Nausea, No Vomiting, No Abdominal Pain, No Diarrhea, No Constipation, No Melena, No Hematochezia, No Other Genitourinary: No Frequency, No Incontinence, No Hematuria, No Retention, No Other Musculoskeletal: No other, No neck pain, No shoulder pain, No arm pain, No back pain, No hand pain, No leg pain, No foot pain Skin: No Rash, No Lesions, No Jaundice, No Bruising, No Other Vital Signs Vital Signs Date Time Temp Pulse Resp B/P (MAP) Pulse Ox O2 Delivery O2 Flow Rate FiO2 03/08/25 21:05 85 122/72 03/08/25 21:00 97.5 18 96 97.5 03/08/25 20:15 Room Air* 0 21 Physical Exam GENERAL: Alert and oriented x 3. No acute distress. Obese. EYES: PERRL, EOMI. Anicteric. HENT: Moist mucous membranes. LUNGS: Diminished breath sounds. CARDIOVASCULAR: Regular rate and rhythm. ABDOMEN: Soft, non-tender and non-distended. Right-sided costovertebral angle tenderness. EXTREMITIES: Trace BLE edema. NEUROLOGIC: No focal neurological deficits. SKIN: Warm, dry. Labs/Diagnostic Data Labs Test 03/08/25 05:10 03/07/25 18:54 03/07/25 17:00 03/07/25 15:46 Range/Units White Blood Count 7.8 4.4-10.8 10^3/uL Red Blood Count 4.53 4.0-5.20 10^6/uL Hemoglobin 14.3 12.2-16.2 g/dL Hematocrit 41.8 36.0-46.0 % Mean Corpuscular Volume 92.5 80.0-100.0 fL Mean Corpuscular Hemoglobin 31.5 28.0-32.0 pg Mean Corpuscular Hemoglobin Concent 34.1 32.0-36.0 g/dL Red Cell Distribution Width 14.4 H 11.8-14.3 % Platelet Count 231 140-450 10^3/uL Mean Platelet Volume 8.4 6.9-10.8 fL Neutrophils (%) (Auto) 75.4 37.0-80.0 % Lymphocytes (%) (Auto) 13.4 10.0-50.0 % Monocytes (%) (Auto) 7.3 0.0-12.0 % Eosinophils (%) (Auto) 3.3 0.0-7.0 % Basophils (%) (Auto) 0.6 0.0-2.0 % Neutrophils # (Auto) 5.8 1.6-8.6 10 ^3/uL Lymphocytes # (Auto) 1.0 0.4-5.4 10 ^3/uL Monocytes # (Auto) 0.6 0-1.3 10 ^3/uL Eosinophils # (Auto) 0.3 0-0.8 10 ^3/uL Basophils # (Auto) 0 0-0.2 10 ^3/uL Nucleated Red Blood Cells 0.1 % Sodium Level 137 136-145 mmol/L Potassium Level 3.2 L 3.5-5.1 mmol/L Chloride Level 102 98-107 mmol/L Carbon Dioxide Level 25 20-31 mmol/L Anion Gap 10 5-15 Blood Urea Nitrogen 12 9-23 mg/dL Creatinine 1.06 H 0.550-1.02 mg/dL Glomerular Filtration Rate Calc 65 >90 mL/min BUN/Creatinine Ratio 11.3 10.0-20.0 Serum Glucose 95 74-106 mg/dL Calcium Level 8.5 L 8.7-10.4 mg/dL Total Bilirubin 1.2 H 0.2-1.0 mg/dL Aspartate Amino Transferase (AST) 51 H <34 U/L Alanine Aminotransferase (ALT) 48 H 7-40 U/L Alkaline Phosphatase 74 46-116 U/L Troponin I High Sensitivity 191 *H </=34 ng/L Total Protein 6.5 5.7-8.2 g/dL Albumin 3.6 3.2-4.8 g/dL Influenza Type A Antigen Negative Negative Influenza Type B Antigen Negative Negative SARS-CoV-2 Antigen (Rapid) Negative NEGATIVE Urine Color Light-yellow Yellow Urine Clarity Ex.turbid Clear Urine pH 5.5 5.0-9.0 Urine Specific [place] 1.014 1.001-1.035 Urine Protein Trace H Negative Urine Ketones Negative Negative Urine Blood 3+ H Negative /uL Urine Nitrite Negative Negative Urine Bilirubin Negative Negative Urine Urobilinogen Normal Negative mg/dL Urine Leukocyte Esterase Negative Negative /uL Urine RBC 271 0 - 4 /hpf Urine Microscopic WBC 25 H 0-5 /HPF Urine Squamous Epithelial Cells Few <5 /hpf Urine Uric Acid Crystals Mod None Seen /hpf Urine Bacteria Few H None Seen /hpf Urine Glucose Normal Normal mg/dL Urine Opiates Screen Neg NEGATIVE Urine Fentanyl Screen Neg NEGATIVE Urine Barbiturates Screen Neg NEGATIVE Urine Phencyclidine Screen Neg NEGATIVE Urine Amphetamines Screen Neg NEGATIVE Urine Benzodiazepines Screen Neg NEGATIVE Urine Cocaine Screen Neg NEGATIVE Urine Cannabinoids Screen Neg NEGATIVE Hemoglobin A1c 5.7 <5.7 % A1C Lactic Acid Level 1.7 0.4-2.0 mmol/L Magnesium Level 1.9 1.6-2.6 mg/dL B-Type Natriuretic Peptide 219.54 0-100 pg/mL Vitamin B12 Level 488 211-911 pg/mL Vitamin D 25-Hydroxy 11.6 L 30.0-100 ng/mL Thyroid Stimulating Hormone (TSH) 0.83 0.55-4.78 uIU/mL Assessment NSTEMI likely type 2 secondary to decompensated heart failure with reduced ejection fraction, NYHA class 3. History of nonischemic cardiomyopathy/dilated cardiomyopathy. History of methamphetamine abuse. Current alcohol use disorder. Obesity. Plan/Recommendation I agree with your ongoing assessment and care of plan. Patient has been seen by Abby Sevilla, resident on my behalf. We have discussed the plan with the patient. Repeat echocardiogram. AICD last interrogated in [address] [facility] . Echocardiogram from May 2024 shows dilated cardiac chambers, severe global hypokinesis of all cardiac chambers. Ejection fraction 10%. Dilated cardiomyopathy. Continue IV Lasix. Continue GDMT as tolerated. Daily weights Strict I & Os Additional plan as per the hospital course. Plan discussed with: Patient NYHA Physical activity limitations: NA Date of Service: Mar 08, 2025 Billing Provider: STEPHANY GOTTI MD Cardiology Common Codes: [id number] INP/OBS CARE (High) STEPHANY GOTTI MD Mar 09, 2025 00:27
[2025-03-09 06:55] LABS: Chloride 102 mmol/L (98-107); Sodium 138 mmol/L (136-145)
[2025-03-09 06:56] LABS: Anion Gap 10 (5-15); Carbon Dioxide 26 mmol/L (20-31)
[2025-03-09 07:01] LABS: BUN/Creatinine Ratio 13.2 (10.0-20.0); Blood Urea Nitrogen 12 mg/dL (9-23); Glucose 87 mg/dL (74-106)
[2025-03-09 07:09] LABS: Calcium 8.5 mg/dL (8.7-10.4); Potassium 3.5 mmol/L (3.5-5.1)
--- NOTE | 2025-03-09 09:28 | DVHSR ---
APPROVED REPORT EXAM: Two-dimensional and M-mode echocardiogram with Doppler and color Doppler. Blood Pressure: 127/66 mmHg INDICATION NSTEMI RISK FACTORS Height: 65, Weight: 238 DIMENSIONS LVDd6.7 (3.8-5.7cm)LA (2D)4.6 (1.9-4.0cm)Aortic Root3.8 (2.0-3.7cm) LVDs5.9 (2.5-4.0cm)LA (MM) (1.9-4.0cm)Aortic Cusp Exc2.1 (1.5-2.0cm) EF (%) 25.0 (55-70%)Rt. Atrium3.9 (1.9-4.0cm)Asc. Aorta cm IVSd1.1 (0.7-1.1cm)RV (D) (1.8-2.4cm) PWd1.4 (0.7-1.1cm) Mitral Valve MitralMitral Stenosis E wave0.68m/sMV Mean GR.mmHg A wave0.80m/sMV Peak GR.83mmHg E/A ratio0.92D MVAcm2 DECEL [id number] 1/2 Tim[place] Aortic Valve Aortic ValveAortic Stenosis V10.66m/Tanja Mean GR.3mmHg V21.10m/Tanja Peak GR.5mmHg LVOT Diameter2.2 (1.8-2.4cm)Doppler AVA2.28cm2 Pulmonic Valve V20.64m/s Tricuspid Valve TR Velocity2.09m/s [id number] Other Information Technically limited study due to body habitus. Conclusion DILATED LEFT VENTRICLE GLOBAL LV HYPOKINESIS LV EF IS 25% AND IS MODERATELY REDUCED MODERATELY DILATED LEFT ATRIUM MODERATE DEGREE MITRAL REGURGITATION DYSKINESIS OF IVS AND DILATED RV GROSSLY NORMAL VALVES NO EFFUSION
--- NOTE | 2025-03-09 13:19 | DVHINCON2 ---
Date of service: Mar 09, 2025 Referring Physician Hospitalist Reason for Consultation "Bladder mass" History of Present Illness Consulted for "bladder mass" but the US reported "Redemonstration of a 7.5 cm cystic mass in the pelvis posterior to the bladder". This is not in the Bladder! Patient also has passed a stone into the bladdder. PATIENT: BETY JASONACCT: [id number] UNIT: [id number] : 1975 LOC: [facility]GE / SEX: 49 / F ADM STATUS: ADM IN SERVICE 1132 ORDERING PHYSICIAN: MICKY CARROLL RESIDENT PROCEDURE(s): BLDR - BLADDER REASON: POSTVOID RESIDUAL ORDER NUMBER(s): [id number], ACCESSION NUMBER(s): [id number] US BLADDER History: POSTVOID RESIDUAL Comparison: CT Abdomen Pelvis 03/07/25 Date: 03/08/2025 11:56 AM Technique: Grayscale and color doppler ultrasound of the pelvis was obtained. Pre-and postvoid images of the bladder were obtained. Findings: Prevoid bladder is well distended and unremarkable. The postvoid bladder, demonstrates no significant post void residual. 6 mm calculus in the distal right ureter at the ureterovesicular junction. The ureteral jets are not visualized. Trace debris in the urinary bladder. Posterior to the urinary bladder there is a 7.5 X 5.07 .6 cm cystic structure, better seen on recent CT IMPRESSION: 1. No significant post void residual noted. 2. A 6 mm calculus in the distal right ureter at the ureterovesicular junction. 3. Trace debris in the urinary bladder, correlate with urinalysis for cystitis. 4. Redemonstration of a 7.5 cm cystic mass in the pelvis posterior to the bladder 49-year-old female patient with hypertension, congestive heart failure (EF 10%), CAD status post AICD who presented to the ER with a chief complaint of right flank pain that started earlier this morning. Patient reports intractable right flank pain radiating to the epigastric region starting earlier this afternoon, associated nausea and dizziness. She reports pain while urination. Denies fever or chills. Also says that she has been experiencing some left arm numbness and left jaw numbness associated with chest pain which is pressure type, for the past month, unrelated to exertion or deep breaths. Denies shortness of breaths, diaphoresis. Past Medical History Hypertension, congestive heart failure, CAD status post AICD, history of suicide attempt, chronic alcohol dependence, polysubstance use, NSTEMI Home medication: Lasix, Entresto, potassium tablets PCP: Patient does not remember Family History: Alcoholism Diabetes mellitus G8 MOTHER G8 FATHER FH: Parkinson's disease G8 MOTHER FH: thyroid disease G8 MOTHER Hypertension G8 FATHER Allergies: Coded Allergies: Penicillins (Verified Allergy, Unknown, 08/14/21) Home Meds Active Scripts Ranolazine (Ranexa) 500 Mg Tab, 500 MG PO BID for 60 Days, #120 TAB Prov:[employer] 10/08/22 Reported Medications Ferrous Sulfate (Ferrous Sulfate) 325 Mg Tab, 1 TAB PO TID for 30 Days, #90 03/08/25 Potassium Chloride (Potassium Chloride ER) 10 Meq Tab, 1 TAB PO TID for 90 Days, #270 03/08/25 Aspirin (Aspirin Low Dose) 81 Mg Tab, 1 TAB PO DAILY for 90 Days, #90 03/08/25 Senna (Senna-Time) 8.6 Mg Tab, 2 TAB PO QHSP for 90 Days, #180 03/08/25 Furosemide (Furosemide) 40 Mg Tab, 1 TAB PO BID for 90 Days, #180 03/08/25 Mesalamine (Mesalamine Dr) 800 Mg Tab, 1 TAB PO TID for 30 Days, #90 03/08/25 Sacubitril-Valsartan (Entresto 24-26 mg) 1 Tab Tab, 1 TAB PO BID 10/06/22 Carvedilol (Carvedilol) 6.25 Mg Tab, 6.25 MG PO BID for 30 Days, MG 08/15/21 Lisinopril (Lisinopril) 5 Mg Tab, 5 MG PO DAILY for 30 Days, MG 08/15/21 Atorvastatin Calcium (ATORVASTATIN CALCIUM) 20 Mg Tab, 1 TAB PO HS, #30 TAB 5 Refills 08/15/21 Current Medications Current Medications Medications (Trade) Dose Ordered Sig/Ilana Route PRN Reason Start Time Stop Time Status Last Admin Tamsulosin HCl (Flomax) 0.4 mg QPM PO 03/08/25 18:00 03/08/25 19:06 Review of Systems Cardiovascular: Chest Pain Gastrointestinal: Nausea, Abdominal Pain, Constipation Allergies: Coded Allergies: Penicillins (Verified Allergy, Unknown, 08/14/21) Vital Signs Vital Signs Date Time Temp Pulse Resp B/P (MAP) Pulse Ox O2 Delivery O2 Flow Rate FiO2 03/09/25 12:33 98.0 84 19 102/67 (79) 94 98.0 03/09/25 08:00 Room Air* 0 21 Physical Exam Vital Signs Date Time Temp Pulse Resp B/P (MAP) Pulse Ox O2 Delivery O2 Flow Rate FiO2 03/07/25 15:23 97.5 115 20 123/49 (73) 96 97.5 Exam Obese female patient sitting in the chair, mild distress General: Obese, afebrile, mucosae are moist Cardiovascular: Regular S1 and S2. No murmurs, gallops or rubs. No JVD elevation. No pedal edema Respiratory: Normal B/L air entry on room air. Clear lung sounds on auscultation Abdomen: Soft, right flank tenderness, nondistended, normoactive bowel sounds, no rebound tenderness, no organomegaly, no masses. Right CVA tenderness Genitourinary: Deferred MSK/skin: Mobilizes 4 limbs. Skin is dry and warm Neurological: No motor, no sensitive deficits, normal speech. Pupils are isocoric and reactive. Psych/Mental Status: A/Ox3 Labs/Diagnostic Data Labs Test 03/09/25 05:57 03/08/25 05:10 03/07/25 18:54 03/07/25 17:00 Range/Units Sodium Level 138 136-145 mmol/L Potassium Level 3.5 3.5-5.1 mmol/L Chloride Level 102 98-107 mmol/L Carbon Dioxide Level 26 20-31 mmol/L Anion Gap 10 5-15 Blood Urea Nitrogen 12 9-23 mg/dL Creatinine 0.91 0.550-1.02 mg/dL Glomerular Filtration Rate Calc 78 >90 mL/min BUN/Creatinine Ratio 13.2 10.0-20.0 Serum Glucose 87 74-106 mg/dL Calcium Level 8.5 L 8.7-10.4 mg/dL White Blood Count 7.8 4.4-10.8 10^3/uL Red Blood Count 4.53 4.0-5.20 10^6/uL Hemoglobin 14.3 12.2-16.2 g/dL Hematocrit 41.8 36.0-46.0 % Mean Corpuscular Volume 92.5 80.0-100.0 fL Mean Corpuscular Hemoglobin 31.5 28.0-32.0 pg Mean Corpuscular Hemoglobin Concent 34.1 32.0-36.0 g/dL Red Cell Distribution Width 14.4 H 11.8-14.3 % Platelet Count 231 140-450 10^3/uL Mean Platelet Volume 8.4 6.9-10.8 fL Neutrophils (%) (Auto) 75.4 37.0-80.0 % Lymphocytes (%) (Auto) 13.4 10.0-50.0 % Monocytes (%) (Auto) 7.3 0.0-12.0 % Eosinophils (%) (Auto) 3.3 0.0-7.0 % Basophils (%) (Auto) 0.6 0.0-2.0 % Neutrophils # (Auto) 5.8 1.6-8.6 10 ^3/uL Lymphocytes # (Auto) 1.0 0.4-5.4 10 ^3/uL Monocytes # (Auto) 0.6 0-1.3 10 ^3/uL Eosinophils # (Auto) 0.3 0-0.8 10 ^3/uL Basophils # (Auto) 0 0-0.2 10 ^3/uL Nucleated Red Blood Cells 0.1 % Total Bilirubin 1.2 H 0.2-1.0 mg/dL Aspartate Amino Transferase (AST) 51 H <34 U/L Alanine Aminotransferase (ALT) 48 H 7-40 U/L Alkaline Phosphatase 74 46-116 U/L Troponin I High Sensitivity 191 *H </=34 ng/L Total Protein 6.5 5.7-8.2 g/dL Albumin 3.6 3.2-4.8 g/dL Influenza Type A Antigen Negative Negative Influenza Type B Antigen Negative Negative SARS-CoV-2 Antigen (Rapid) Negative NEGATIVE Urine Color Light-yellow Yellow Urine Clarity Ex.turbid Clear Urine pH 5.5 5.0-9.0 Urine Specific [place] 1.014 1.001-1.035 Urine Protein Trace H Negative Urine Ketones Negative Negative Urine Blood 3+ H Negative /uL Urine Nitrite Negative Negative Urine Bilirubin Negative Negative Urine Urobilinogen Normal Negative mg/dL Urine Leukocyte Esterase Negative Negative /uL Urine RBC 271 0 - 4 /hpf Urine Microscopic WBC 25 H 0-5 /HPF Urine Squamous Epithelial Cells Few <5 /hpf Urine Uric Acid Crystals Mod None Seen /hpf Urine Bacteria Few H None Seen /hpf Urine Glucose Normal Normal mg/dL Urine Opiates Screen Neg NEGATIVE Urine Fentanyl Screen Neg NEGATIVE Urine Barbiturates Screen Neg NEGATIVE Urine Phencyclidine Screen Neg NEGATIVE Urine Amphetamines Screen Neg NEGATIVE Urine Benzodiazepines Screen Neg NEGATIVE Urine Cocaine Screen Neg NEGATIVE Urine Cannabinoids Screen Neg NEGATIVE Test 03/07/25 15:46 Range/Units Hemoglobin A1c 5.7 <5.7 % A1C Lactic Acid Level 1.7 0.4-2.0 mmol/L Magnesium Level 1.9 1.6-2.6 mg/dL B-Type Natriuretic Peptide 219.54 0-100 pg/mL Vitamin B12 Level 488 211-911 pg/mL Vitamin D 25-Hydroxy 11.6 L 30.0-100 ng/mL Thyroid Stimulating Hormone (TSH) 0.83 0.55-4.78 uIU/mL Assessment Urolithiasis passed Right UVJ stone, 6 mm, with mild hydronephrosis Cystic lesion 7.5 cm posterior to the bladder in the pelvis CHF with EF 10-25% Plan/Recommendation If cleared by cardiology, will proceed with right ESWL, cystoscopy with right ureteral stent placement Plan discussed with: Patient, Other ARMAND LACY MD Mar 09, 2025 13:19
--- NOTE | 2025-03-09 15:38 | DVHPNRES ---
Progress Note Date Seen: Mar 09, 2025 Resident Creating Document: MICKY CARROLL RESIDENT Medical Necessity Reason Pt with a Central, PICC or Fol: No Subjective Review of Systems This is a 49-year-old female patient with hypertension, congestive heart failure, CAD status post AICD who presented to the ER with a chief complaint of right flank pain that started earlier this morning. Patient reports intractable right flank pain radiating to the epigastric region starting earlier this afternoon, associated nausea and dizziness. She reports pain while urination. Denies fever or chills. Also says that she has been experiencing some left arm numbness and left jaw numbness associated with chest pain which is pressure type, for the past month, unrelated to exertion or deep breaths. Denies shortness of breaths, diaphoresis. Past medical history: Hypertension, congestive heart failure, CAD status post AICD, history of suicide attempt, chronic alcohol dependence, polysubstance use, NSTEMI Home medication: Lasix, Entresto, potassium tablets PCP: Patient does not remember Social history: Lives with son 03/07-Patient seen and examined in the ER. Reports intractable pain and nausea. Patient admitted telemetry unit given chest pain. 03/08-patient seen and examined. Reports pressure-type chest pain, abdominal pain getting better. Troponin slightly trending up, cardiology consulted. 03/09-patient seen and examined. Reports intractable pain right flank, [place] draining dark urine. Echo shows LVEF 25%. Urology consulted Objective vital signs Vital Sign Date Time Temp Pulse Resp B/P (MAP) Pulse Ox O2 Delivery O2 Flow Rate FiO2 03/09/25 12:33 98.0 84 19 102/67 (79) 94 98.0 03/09/25 08:00 Room Air* 0 21 Total Intake and Output 03/08/25 03/08/25 03/09/25 15:00 23:00 07:00 Intake Total 250 ml 1040 ml Output Total 850 ml Balance 250 ml 190 ml medications Current Medications Medications Dose Ordered Sig/Ilana Route Start Time Stop Time Status Last Admin Dose Admin Nitroglycerin 0.4 mg Q5MINP PRN SL 03/07/25 17:15 Morphine Sulfate 2 mg Q30M PRN IV 03/07/25 17:15 Acetaminophen 500 mg Q4HPRN PRN PO 03/07/25 17:30 Acetaminophen/ Hydrocodone Bitart 1 tab Q4HPRN PRN PO 03/07/25 17:30 03/09/25 09:57 1 TAB Morphine Sulfate 1 mg Q4HPRN PRN IV 03/07/25 17:30 03/09/25 00:43 1 MG Aspirin 81 mg DAILY PO 03/08/25 10:00 03/09/25 09:42 81 MG Atorvastatin Calcium 40 mg HS PO 03/07/25 22:00 03/08/25 21:05 40 MG Tamsulosin HCl 0.4 mg QPM PO 03/08/25 18:00 03/08/25 19:06 0.4 MG Ceftriaxone Sodium 50 ml @ 100 mls/hr DAILY@09 IV 03/08/25 09:00 03/09/25 09:41 100 MLS/HR Ranolazine 500 mg BID PO 03/07/25 22:00 03/09/25 09:42 500 MG Sacubitril/ Valsartan 1 tab BID PO 03/07/25 22:00 03/09/25 09:42 1 TAB Carvedilol 6.25 mg Q12HR PO 03/07/25 22:00 03/08/25 21:05 6.25 MG Furosemide 40 mg DAILY IV 03/08/25 10:00 03/09/25 09:42 40 MG Enoxaparin Sodium 40 mg DAILY SC 03/08/25 10:00 03/09/25 09:42 40 MG Ergocalciferol 50,000 unit Q7D PO 03/08/25 08:00 03/08/25 10:26 50,000 UNIT Examination Obese female patient sitting in the chair, mild distress General: Obese, afebrile, mucosae are moist Cardiovascular: Regular S1 and S2. No murmurs, gallops or rubs. No JVD elevation. No pedal edema Respiratory: Normal B/L air entry on room air. Clear lung sounds on auscultation Abdomen: Soft, right flank tenderness, nondistended, normoactive bowel sounds, no rebound tenderness, no organomegaly, no masses. Right CVA tenderness Genitourinary: Deferred MSK/skin: Mobilizes 4 limbs. Skin is dry and warm Neurological: No motor, no sensitive deficits, normal speech. Pupils are isocoric and reactive. Psych/Mental Status: A/Ox3 laboratory and microbiology Laboratory Tests 03/09/25 05:57 03/08/25 05:10 Test 03/09/25 05:57 Range/Units Serum Glucose 87 74-106 mg/dL Labs and/or images reviewed: Labs reviewed by me, Image(s) reviewed by me Problem List/Assessment/Plan Problem List/Assessment/Plan CT abdomen: 1. Mild right hydronephrosis calculus in the calyx of the right kidney. There is a 6-7 mm calculus within the bladder on the right. This is consistent with a recently passed ureteral calculus. 2. Cholelithiasis 3. No findings of bowel obstruction. Abdominal ultrasound 03/08: A 6 mm calculus in the distal right ureter at the ureterovesicular junction. Trace debris in the urinary bladder, correlate with urinalysis for cystitis. Redemonstration of a 7.5 cm cystic mass in the pelvis posterior to the bladder Acute abdominal pain secondary to nephrolithiasis Intractable nausea Mild right-sided hydronephrosis Nonobstructing bilateral renal calculi Right UVJ stone, 6 mm, with mild hydronephrosis Left renal cyst Acute complicated cystitis Cystic lesion 7.5 cm posterior to the bladder in the pelvis Avoiding IV fluids given severe systolic CHF Tamsulosin 0.4 mg daily UDS negative, UA shows 25 WBCs, few bacteria. kidney ultrasound shows mild right hydronephrosis, nonobstructing bilateral renal calculi, mild hepatomegaly with hepatic steatosis, left renal cyst. IV ceftriaxone daily Urology consulted- If cleared by cardiology, will proceed with right ESWL, cystoscopy with right ureteral stent placement NPO after midnight Cholelithiasis ruled out cholecystitis Mild transaminitis secondary to steatosis Liver ultrasound shows mild hepatomegaly with the hepatic steatosis. No CBD dilation. Chest pain ruled out ACS NSTEMI type 2 Hypertension Systolic Congestive heart failure-EF Dilated cardiomyopathy likely drug-induced History of polysubstance use Troponin 133 , trending up to 190, cardiology consulted Echocardiogram shows dilated LV, global LV hypokinesis, LVEF 25%, moderately dilated LA, moderate MR DILATED LEFT VENTRICLE BNP 2 1 9 EKG shows sinus rhythm, nonspecific ST changes which were seen in previous EKG Chest x-ray shows cardiomegaly with congestive heart failure Resume home medication including Coreg b.i.d., lisinopril 5 mg daily, ranolazine 500 mg b.i.d., Entresto b.i.d., Lasix 40 mg IV daily Aspirin and atorvastatin daily Chronic alcohol dependence Counseled regarding cessation for more than 20 minutes History of suicide attempt-no HI/SI Monitor Vitamin-D deficiency Supplemented Lovenox 40 mg sc daily Fluid restriction Strict I&Os Cardiac diet, NPO after midnight Plan discussed with patient, son at bedside in which all questions have been answered Goals of care discussed for more than 20 minutes, full code status Case discussed with Dr. Ramires. ESWL scheduled for tomorrow Plan discussed with: Patient My Orders My Orders Orders - MICKY CARROLL Procedure Category Date Status Time Cardiac DIET 03/08/25 Transmitted Diet-2gna,Lofat,Lochol Dinner * Urology Consult CONS 03/09/25 Transmitted 11:43 Date of Service: Mar 09, 2025 Billing Provider: RICH ZHONG MD Common Visit Codes: [id number] INP/OBS CARE(HIGH) MICKY CARROLL Mar 09, 2025 15:38 RICH ZHONG MD Mar 14, 2025 10:23
--- NOTE | 2025-03-09 15:56 | DVHPNRES ---
Progress Note Date Seen: Mar 09, 2025 Resident Creating Document: SO BOWMAN RESIDENT Medical Necessity Reason Pt with a Central, PICC or Fol: No Subjective Review of Systems Continues to feel shortness of breath and nausea. Objective vital signs Vital Sign Date Time Temp Pulse Resp B/P (MAP) Pulse Ox O2 Delivery O2 Flow Rate FiO2 03/09/25 12:33 98.0 84 19 102/67 (79) 94 98.0 03/09/25 08:00 Room Air* 0 21 Total Intake and Output 03/08/25 03/08/25 03/09/25 15:00 23:00 07:00 Intake Total 250 ml 1040 ml Output Total 850 ml Balance 250 ml 190 ml medications Current Medications Medications Dose Ordered Sig/Ilana Route Start Time Stop Time Status Last Admin Dose Admin Nitroglycerin 0.4 mg Q5MINP PRN SL 03/07/25 17:15 Morphine Sulfate 2 mg Q30M PRN IV 03/07/25 17:15 Acetaminophen 500 mg Q4HPRN PRN PO 03/07/25 17:30 Acetaminophen/ Hydrocodone Bitart 1 tab Q4HPRN PRN PO 03/07/25 17:30 03/09/25 09:57 1 TAB Morphine Sulfate 1 mg Q4HPRN PRN IV 03/07/25 17:30 03/09/25 00:43 1 MG Aspirin 81 mg DAILY PO 03/08/25 10:00 03/09/25 09:42 81 MG Atorvastatin Calcium 40 mg HS PO 03/07/25 22:00 03/08/25 21:05 40 MG Tamsulosin HCl 0.4 mg QPM PO 03/08/25 18:00 03/08/25 19:06 0.4 MG Ceftriaxone Sodium 50 ml @ 100 mls/hr DAILY@09 IV 03/08/25 09:00 03/09/25 09:41 100 MLS/HR Ranolazine 500 mg BID PO 03/07/25 22:00 03/09/25 09:42 500 MG Sacubitril/ Valsartan 1 tab BID PO 03/07/25 22:00 03/09/25 09:42 1 TAB Carvedilol 6.25 mg Q12HR PO 03/07/25 22:00 03/08/25 21:05 6.25 MG Furosemide 40 mg DAILY IV 03/08/25 10:00 03/09/25 09:42 40 MG Enoxaparin Sodium 40 mg DAILY SC 03/08/25 10:00 Hold 03/09/25 09:42 40 MG Ergocalciferol 50,000 unit Q7D PO 03/08/25 08:00 03/08/25 10:26 50,000 UNIT Examination General Appearance: Cooperative. Well developed. Well nourished. NAD Head Exam: Normal inspection Neck Exam: Normal inspection. Non-tender. Normal alignment Pulmonary/Respiratory: Chest non-tender. Clear bilateral breath sounds, trace bibasilar crackles, no wheezing. Cardiovascular/Chest: Regular rate and rhythm. No murmurs. JVD. Peripheral Pulses: 2+ Radial (R). 2+ Radial (L). 2+ Pedal (R). 2+ Pedal (L) Abdominal Exam: Normal bowel sounds. Soft. normal abdomen, no visible veins, r ight-sided costovertebral angle tenderness No hepatospenomegaly. No masses Lower extremities: Trace lower extremity pitting edema Neuro/Mental Status: A&O x4. Coherent. Thoughts/Psych: Normal thought pattern. Appropriate mood and affect. Good judgement and insight Skin Exam: Normal inspection. Normal color. Warm. Dry laboratory and microbiology Laboratory Tests 03/09/25 05:57 03/08/25 05:10 Test 03/09/25 05:57 Range/Units Serum Glucose 87 74-106 mg/dL Labs and/or images reviewed: Labs reviewed by me, Image(s) reviewed by me Problem List/Assessment/Plan Problem List/Assessment/Plan NSTEMI likely type 2 secondary to decompensated heart failure with reduced ejection fraction, NYHA class 3 History of nonischemic cardiomyopathy/dilated cardiomyopathy History of methamphetamine abuse Current alcohol use disorder Obesity Plan: Repeat echocardiogram: Left ventricle. Global left ventricle hypokinesis. EF 25% in moderately reduced. Moderately dilated left atrium. Moderate degree mitral regurgitation. Dyskinesis of IBS and dilated RV. AICD last interrogated in 2023 at [facility] Continue IV Lasix Continue GDMT as tolerated Negative drug screen Daily weights strict I & Os Rest of the management as per hospitalist RCRI (Conrado criteria) 1 = 6%; the patient has no cardiac contraindications to proceed with the procedure. Cardiac symptoms have been ruled out. Patient has underlying heart failure with reduced ejection fraction, no coronary artery disease and currently no equivalent of cardiac symptoms. Patient notes good functional capacity equivalent to 4 mets and is able to climb a flight of stairs. There is no additional cardiac workup indicated at this time. Patient is at moderate risk for a moderate risk procedure Thank you so much for the opportunity to consult on your patient. Cardiology team will follow the patient. In case of any questions or concerns please feel free to reach out. Plan discussed with Dr. Gotti Plan discussed with: Patient, Son, Other (RN) Visit Coding Cardiology RES Date of Service: Mar 09, 2025 Billing Provider: STEPHANY GOTTI MD Cardiology Common Codes: [id number] [facility] Mar 09, 2025 15:56
--- NOTE | 2025-03-09 17:31 | DVHPN2 ---
Consult Progress Note Date Seen: Mar 09, 2025 Subjective Other Systems: Patient was seen and evaluated in follow up. Patient continues to feel short of breath with nausea. Repeat troponin 183. Bladder US showed A 6 mm calculus in the distal right ureter at the ureterovesicular junction. Trace debris in the urinary bladder, correlate with urinalysis for cystitis. Redemonstration of a 7.5 cm cystic mass in the pelvis posterior to the bladder. Objective vital signs Vital Sign Date Time Temp Pulse Resp B/P (MAP) Pulse Ox O2 Delivery O2 Flow Rate FiO2 03/09/25 16:43 98.0 93 18 111/72 (85) 95 98.0 03/09/25 08:00 Room Air* 0 21 Total Intake and Output 03/08/25 03/08/25 03/09/25 15:00 23:00 07:00 Intake Total 250 ml 1040 ml Output Total 850 ml Balance 250 ml 190 ml medications Current Medications Medications Dose Ordered Sig/Ilana Route Start Time Stop Time Status Last Admin Dose Admin Nitroglycerin 0.4 mg Q5MINP PRN SL 03/07/25 17:15 Morphine Sulfate 2 mg Q30M PRN IV 03/07/25 17:15 Acetaminophen 500 mg Q4HPRN PRN PO 03/07/25 17:30 Acetaminophen/ Hydrocodone Bitart 1 tab Q4HPRN PRN PO 03/07/25 17:30 03/09/25 09:57 1 TAB Morphine Sulfate 1 mg Q4HPRN PRN IV 03/07/25 17:30 03/09/25 00:43 1 MG Aspirin 81 mg DAILY PO 03/08/25 10:00 03/09/25 09:42 81 MG Atorvastatin Calcium 40 mg HS PO 03/07/25 22:00 03/08/25 21:05 40 MG Tamsulosin HCl 0.4 mg QPM PO 03/08/25 18:00 03/08/25 19:06 0.4 MG Ceftriaxone Sodium 50 ml @ 100 mls/hr DAILY@09 IV 03/08/25 09:00 03/09/25 09:41 100 MLS/HR Ranolazine 500 mg BID PO 03/07/25 22:00 03/09/25 09:42 500 MG Sacubitril/ Valsartan 1 tab BID PO 03/07/25 22:00 03/09/25 09:42 1 TAB Carvedilol 6.25 mg Q12HR PO 03/07/25 22:00 03/08/25 21:05 6.25 MG Furosemide 40 mg DAILY IV 03/08/25 10:00 03/09/25 09:42 40 MG Enoxaparin Sodium 40 mg DAILY SC 03/08/25 10:00 Hold 03/09/25 09:42 40 MG Ergocalciferol 50,000 unit Q7D PO 03/08/25 08:00 03/08/25 10:26 50,000 UNIT Examination: GENERAL:Normal, HEENT:Normal, NECK:Normal, LUNGS:Normal, CVS:Normal (JVD), ABDOMEN:Abnormal, MSK:Abnormal (Trace lower extremity pitting edema), SKIN:Normal, NEURO:Normal laboratory and microbiology Laboratory Tests 03/09/25 05:57 03/08/25 05:10 Test 03/09/25 05:57 Range/Units Serum Glucose 87 74-106 mg/dL Problem List/Assessment/Plan Problem List/Assessment/Plan Problem List/Assessment/Plan NSTEMI likely type 2 secondary to decompensated heart failure with reduced ejection fraction, NYHA class 3. History of nonischemic cardiomyopathy/dilated cardiomyopathy. History of methamphetamine abuse. Current alcohol use disorder. Obesity. Plan: Continued all current supportive medical care. Patient has been seen by Abby Sevilla Resident on my behalf, we have discussed the plan with the patient. Repeat echocardiogram: Left ventricle. Global left ventricle hypokinesis. EF 25% in moderately reduced. Moderately dilated left atrium. Moderate degree mitral regurgitation. Dyskinesis of IBS and dilated RV. AICD last interrogated in 2023 at [facility]. Continue IV Lasix. Continue GDMT as tolerated. Strict I & Os. RCRI (Conrado criteria) 1 = 6%; the patient has no cardiac contraindications to proceed with the procedure. Cardiac symptoms have been ruled out. Patient has underlying heart failure with reduced ejection fraction, no coronary artery disease and currently no equivalent of cardiac symptoms. Patient notes good functional capacity equivalent to 4 mets and is able to climb a flight of stairs. There is no additional cardiac workup indicated at this time. Patient is at moderate risk for a moderate risk procedure. Additional plan as per the hospital course. Plan discussed with: Patient Date of Service: Mar 09, 2025 Billing Provider: STEPHANY GOTTI MD Cardiology Common Codes: [id number] INP/OBS CARE (High) STEPHANY GOTTI MD Mar 09, 2025 16:52
[2025-03-10] VITALS (8 sets, daily range): BP systolic 100–137; BP diastolic 51–88; PULSE 73–96; RESP 15–20; TEMP 97.5–98.2; O2SAT 91–99
--- NOTE | 2025-03-10 07:42 | ECG ---
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
[2025-03-10 07:44] LABS: INR 1.04 (0.9-1.15); Partial Thromboplastin Time 25.2 SEC (24.5-34.5)
[2025-03-10 07:46] LABS: Chloride 105 mmol/L (98-107); Potassium 3.6 mmol/L (3.5-5.1); Sodium 142 mmol/L (136-145)
[2025-03-10 07:47] LABS: Anion Gap 10 (5-15); Carbon Dioxide 27 mmol/L (20-31)
[2025-03-10 07:48] LABS: Calcium 9.8 mg/dL (8.7-10.4)
[2025-03-10 07:53] LABS: BUN/Creatinine Ratio 13.7 (10.0-20.0); Blood Urea Nitrogen 13 mg/dL (9-23); Glucose 94 mg/dL (74-106)
[2025-03-10] MEDS ORDERED: PROPOFOL 10 MG/ML 20 ML IV ONE (08:28)
[2025-03-10] MEDS ORDERED: LIDOCAINE 2% (LOCAL ANESTH.) PF 5ml SDV ONE (08:28)
[2025-03-10] MEDS ORDERED: KETOROLAC TROMETH 30 MG/ML 1ML VIAL ONE (08:28)
[2025-03-10] MEDS ORDERED: GLYCOPYRROLATE 0.2 MG/ML 1ML VIAL ONE (08:28)
[2025-03-10] MEDS ORDERED: LIDOCAINE 1% INJ PF 5ML AMP ONE (08:28)
[2025-03-10] MEDS ORDERED: DexAMETHasone SOD PHOS 10MG/1ML VIAL INJ ONE (08:28)
[2025-03-10] MEDS ORDERED: ONDANSETRON HCL 4 MG/2 ML VIAL ONE (08:28)
[2025-03-10] MEDS ORDERED: KETAMINE 50mg/ML 1ml syringe ONE (08:29)
[2025-03-10] MEDS ORDERED: ePHEDrine SULFATE 50 MG/ML AMP ONE (09:59)
[2025-03-10] MEDS: CIPROFLOXACIN 400MG/200ML 200 ML IV ONE (10:00)
--- NOTE | 2025-03-10 10:40 | DVHNC2 ---
Procedure - OPERATIVE REPORT Pre-op. Diagnosis: Right hydronephrosis right distal ureterovesical junction stone, 6 mm Post-op. Diagnosis: right hydronephrosis bladder stones Operation: cystoscopy with evacuation of bladder calculi cystoscopy with right retrograde pyelogram and right ureteral stent placement Anesthesia: general Indications: patient with symptomatic right distal ureteral calculus and right hydronephrosis The indications, risks, alternatives and benefits of right extracorporeal shockwave lithotripsy and right ureteral stent placement are discussed with patient. All questions were encouraged and answered; and she elected to proceed Details of Procedure: The patient was taken to the operating room and underwent general anesthesia. She was placed in dorsal lithotomy position with the area of the genitalia prepped and draped in usual sterile manner. Twenty-one Cuban cystoscope was used to inspect the urethra in the bladder with multiple bladder calculi found. These were evacuated. There was no evidence of bladder mass or tumors. The right ureteric orifice was cannulated with six Cuban open-ended catheter and right retrograde pyelogram was performed. There was no evidence of distal ureteral calculus. However she did have persistent [id number] right hydronephrosis. Given her symptoms of flank pain, I elected to proceed with stent placement for temporary measures. Guidewire was then placed after removing the open-ended catheter. Five Cuban by 24 cm polaris loop ureteral stent was properly positioned and the bladder was decompressed. Cystoscope was removed. Temporary Ballard catheter was inserted. Patient was awakened and taken to recovery room in stable condition. Specimens: Bladder calculi Complications: none Findings: mild to moderate right hydronephrosis Notes: outpatient scheduling of cystoscopy with stent removal ARMAND LACY MD Mar 10, 2025 10:40
[2025-03-10] MEDS ORDERED: HYDROmorphone HCL 2 MG/ML VL/or syr IV PRN (10:45)
[2025-03-10] MEDS ORDERED: hydrALAZINE HCL 20 MG/ML VL IV PRN (10:45)
[2025-03-10] MEDS ORDERED: ePHEDrine SULFATE 50 MG/ML AMP IV PRN (10:45)
[2025-03-10] MEDS ORDERED: NALOXONE HCL 0.4 MG/ML VIAL IV PRN (10:45)
[2025-03-10] MEDS ORDERED: fentaNYL CITRATE 100 MCG/2 ML VL IV PRN (10:45)
[2025-03-10] MEDS ORDERED: ONDANSETRON HCL 4 MG/2 ML VIAL IV PRN (10:45)
[2025-03-10] MEDS ORDERED: FLUMAZENIL 0.1 MG/ML INJ 10ML MDV IV PRN (10:45)
--- NOTE | 2025-03-10 11:48 | DVHPNRES ---
Progress Note Date Seen: Mar 10, 2025 Resident Creating Document: MICKY CARROLL RESIDENT Medical Necessity Reason Pt with a Central, PICC or Fol: No Subjective Review of Systems This is a 49-year-old female patient with hypertension, congestive heart failure, CAD status post AICD who presented to the ER with a chief complaint of right flank pain that started earlier this morning. Patient reports intractable right flank pain radiating to the epigastric region starting earlier this afternoon, associated nausea and dizziness. She reports pain while urination. Denies fever or chills. Also says that she has been experiencing some left arm numbness and left jaw numbness associated with chest pain which is pressure type, for the past month, unrelated to exertion or deep breaths. Denies shortness of breaths, diaphoresis. Past medical history: Hypertension, congestive heart failure, CAD status post AICD, history of suicide attempt, chronic alcohol dependence, polysubstance use, NSTEMI Home medication: Lasix, Entresto, potassium tablets PCP: Patient does not remember Social history: Lives with son 03/07-Patient seen and examined in the ER. Reports intractable pain and nausea. Patient admitted telemetry unit given chest pain. 03/08-patient seen and examined. Reports pressure-type chest pain, abdominal pain getting better. Troponin slightly trending up, cardiology consulted. 03/09-patient seen and examined. Reports intractable pain right flank, Ballard draining dark urine. Echo shows LVEF 25%. Urology consulted 03/04-patient undergoing ESWL. Objective vital signs Vital Sign Date Time Temp Pulse Resp B/P (MAP) Pulse Ox O2 Delivery O2 Flow Rate FiO2 03/10/25 10:54 Room Air 94 03/10/25 10:40 96 15 99 7.0 03/10/25 10:40 98.4 128/80 (96) 98.4 Total Intake and Output 03/09/25 03/09/25 03/10/25 15:00 23:00 07:00 Intake Total 50 ml 780 ml 440 ml Output Total 2052 ml 450 ml Balance 50 ml -1272 ml -10 ml medications Current Medications Medications Dose Ordered Sig/Ilana Route Start Time Stop Time Status Last Admin Dose Admin Nitroglycerin 0.4 mg Q5MINP PRN SL 03/07/25 17:15 Morphine Sulfate 2 mg Q30M PRN IV 03/07/25 17:15 Acetaminophen 500 mg Q4HPRN PRN PO 03/07/25 17:30 Acetaminophen/ Hydrocodone Bitart 1 tab Q4HPRN PRN PO 03/07/25 17:30 03/09/25 22:34 1 TAB Morphine Sulfate 1 mg Q4HPRN PRN IV 03/07/25 17:30 03/09/25 00:43 1 MG Aspirin 81 mg DAILY PO 03/08/25 10:00 03/09/25 09:42 81 MG Atorvastatin Calcium 40 mg HS PO 03/07/25 22:00 03/09/25 20:53 40 MG Tamsulosin HCl 0.4 mg QPM PO 03/08/25 18:00 03/09/25 17:08 0.4 MG Ceftriaxone Sodium 50 ml @ 100 mls/hr DAILY@09 IV 03/08/25 09:00 03/09/25 09:41 100 MLS/HR Ranolazine 500 mg BID PO 03/07/25 22:00 03/09/25 20:53 500 MG Sacubitril/ Valsartan 1 tab BID PO 03/07/25 22:00 03/09/25 22:34 1 TAB Carvedilol 6.25 mg Q12HR PO 03/07/25 22:00 03/09/25 20:54 6.25 MG Furosemide 40 mg DAILY IV 03/08/25 10:00 03/09/25 09:42 40 MG Enoxaparin Sodium 40 mg DAILY SC 03/08/25 10:00 Hold 03/09/25 09:42 40 MG Ergocalciferol 50,000 unit Q7D PO 03/08/25 08:00 03/08/25 10:26 50,000 UNIT Examination Obese female patient sitting in the chair, mild distress General: Obese, afebrile, mucosae are moist Cardiovascular: Regular S1 and S2. No murmurs, gallops or rubs. No JVD elevation. No pedal edema Respiratory: Normal B/L air entry on room air. Clear lung sounds on auscultation Abdomen: Soft, right flank tenderness, nondistended, normoactive bowel sounds, no rebound tenderness, no organomegaly, no masses. Right CVA tenderness Genitourinary: Deferred MSK/skin: Mobilizes 4 limbs. Skin is dry and warm Neurological: No motor, no sensitive deficits, normal speech. Pupils are isocoric and reactive. Psych/Mental Status: A/Ox3 laboratory and microbiology Laboratory Tests 03/10/25 06:54 03/08/25 05:10 Test 03/10/25 06:54 Range/Units Serum Glucose 94 74-106 mg/dL Labs and/or images reviewed: Labs reviewed by me, Image(s) reviewed by me Problem List/Assessment/Plan Problem List/Assessment/Plan CT abdomen: 1. Mild right hydronephrosis calculus in the calyx of the right kidney. There is a 6-7 mm calculus within the bladder on the right. This is consistent with a recently passed ureteral calculus. 2. Cholelithiasis 3. No findings of bowel obstruction. Abdominal ultrasound 03/08: A 6 mm calculus in the distal right ureter at the ureterovesicular junction. Trace debris in the urinary bladder, correlate with urinalysis for cystitis. Redemonstration of a 7.5 cm cystic mass in the pelvis posterior to the bladder Acute abdominal pain secondary to nephrolithiasis status post cystoscopy with evacuation of bladder calculi, cystoscopy with right retrograde pyelogram and right ureteral stent placement 03/10 Intractable nausea [id number] right hydronephrosis Nonobstructing bilateral renal calculi Right UVJ stone, 6 mm, with mild hydronephrosis Left renal cyst Acute complicated cystitis Cystic lesion 7.5 cm posterior to the bladder in the pelvis Avoiding IV fluids given severe systolic CHF Tamsulosin 0.4 mg daily UDS negative, UA shows 25 WBCs, few bacteria. kidney ultrasound shows mild right hydronephrosis, nonobstructing bilateral renal calculi, mild hepatomegaly with hepatic steatosis, left renal cyst. IV ceftriaxone daily Urology consulted- patient underwent cystoscopy with evacuation of bladder calculi, cystoscopy with right retrograde pyelogram and right ureteral stent placement Plan: outpatient scheduling of cystoscopy with stent removal Cholelithiasis ruled out cholecystitis Mild transaminitis secondary to steatosis Liver ultrasound shows mild hepatomegaly with the hepatic steatosis. No CBD dilation. Chest pain ruled out ACS NSTEMI type 2 Hypertension Systolic Congestive heart failure-EF Dilated cardiomyopathy likely drug-induced History of polysubstance use Troponin 133 , trending up to 190, cardiology consulted Echocardiogram shows dilated LV, global LV hypokinesis, LVEF 25%, moderately dilated LA, moderate MR DILATED LEFT VENTRICLE BNP 2 1 9 EKG shows sinus rhythm, nonspecific ST changes which were seen in previous EKG Chest x-ray shows cardiomegaly with congestive heart failure Resume home medication including Coreg b.i.d., lisinopril 5 mg daily, ranolazine 500 mg b.i.d., Entresto b.i.d., Lasix 40 mg IV daily Aspirin and atorvastatin daily Chronic alcohol dependence Counseled regarding cessation for more than 20 minutes History of suicide attempt-no HI/SI Monitor Vitamin-D deficiency Supplemented Lovenox 40 mg sc daily Fluid restriction Strict I&Os Cardiac diet Plan discussed with patient, son at bedside in which all questions have been answered Goals of care discussed for more than 20 minutes, full code status Case discussed with Dr. Ramires. Plan discussed with: Patient My Orders My Orders Orders - MICKY CARROLL Procedure Category Date Status Time Discontinue Tele THERESA 03/09/25 In Process 15:39 Transfer Orders XFER 03/09/25 Transmitted 15:39 Date of Service: Mar 10, 2025 Billing Provider: RICH ZHONG MD Common Visit Codes: [id number] INP/OBS CARE(HIGH) MICKY CARROLL Mar 10, 2025 11:48 RICH ZHONG MD Mar 14, 2025 10:02
--- NOTE | 2025-03-10 12:13 | DVHPNRES ---
Progress Note Date Seen: Mar 10, 2025 Resident Creating Document: SO BOWMAN RESIDENT Medical Necessity Reason Pt with a Central, PICC or Fol: No Subjective Review of Systems Patient seen and examined at bedside. Continues to experience right-sided flank tenderness and nausea. Scheduled to undergo ESWL today. Objective vital signs Vital Sign Date Time Temp Pulse Resp B/P (MAP) Pulse Ox O2 Delivery O2 Flow Rate FiO2 03/10/25 11:55 77 130/83 03/10/25 11:10 16 96 03/10/25 10:54 Room Air 94 03/10/25 10:40 7.0 03/10/25 10:40 98.4 98.4 Total Intake and Output 03/09/25 03/09/25 03/10/25 15:00 23:00 07:00 Intake Total 50 ml 780 ml 440 ml Output Total 2052 ml 450 ml Balance 50 ml -1272 ml -10 ml medications Current Medications Medications Dose Ordered Sig/Ilana Route Start Time Stop Time Status Last Admin Dose Admin Nitroglycerin 0.4 mg Q5MINP PRN SL 03/07/25 17:15 Morphine Sulfate 2 mg Q30M PRN IV 03/07/25 17:15 Acetaminophen 500 mg Q4HPRN PRN PO 03/07/25 17:30 Acetaminophen/ Hydrocodone Bitart 1 tab Q4HPRN PRN PO 03/07/25 17:30 03/09/25 22:34 1 TAB Morphine Sulfate 1 mg Q4HPRN PRN IV 03/07/25 17:30 03/09/25 00:43 1 MG Aspirin 81 mg DAILY PO 03/08/25 10:00 03/09/25 09:42 81 MG Atorvastatin Calcium 40 mg HS PO 03/07/25 22:00 03/09/25 20:53 40 MG Tamsulosin HCl 0.4 mg QPM PO 03/08/25 18:00 03/09/25 17:08 0.4 MG Ceftriaxone Sodium 50 ml @ 100 mls/hr DAILY@09 IV 03/08/25 09:00 03/10/25 11:54 100 MLS/HR Ranolazine 500 mg BID PO 03/07/25 22:00 03/09/25 20:53 500 MG Sacubitril/ Valsartan 1 tab BID PO 03/07/25 22:00 03/09/25 22:34 1 TAB Carvedilol 6.25 mg Q12HR PO 03/07/25 22:00 03/10/25 11:55 6.25 MG Furosemide 40 mg DAILY IV 03/08/25 10:00 03/10/25 11:54 40 MG Enoxaparin Sodium 40 mg DAILY SC 03/08/25 10:00 Hold 03/09/25 09:42 40 MG Ergocalciferol 50,000 unit Q7D PO 03/08/25 08:00 03/08/25 10:26 50,000 UNIT Examination General: Obese, afebrile, mucosae are moist Cardiovascular: Regular S1 and S2. No murmurs, gallops or rubs. No JVD elevation. No pedal edema Respiratory: Normal B/L air entry on room air. Clear lung sounds on auscultation Abdomen: Soft, right flank tenderness, nondistended, normoactive bowel sounds, no rebound tenderness, no organomegaly, no masses. Right CVA tenderness Genitourinary: Deferred MSK/skin: Mobilizes 4 limbs. Skin is dry and warm Neurological: No motor, no sensitive deficits, normal speech. Pupils are isocoric and reactive. Psych/Mental Status: A/Ox3 laboratory and microbiology Laboratory Tests 03/10/25 06:54 03/08/25 05:10 Test 03/10/25 06:54 Range/Units Serum Glucose 94 74-106 mg/dL Labs and/or images reviewed: Labs reviewed by me, Image(s) reviewed by me Problem List/Assessment/Plan Problem List/Assessment/Plan NSTEMI likely type 2 secondary to decompensated heart failure with reduced ejection fraction, NYHA class 3 History of nonischemic cardiomyopathy/dilated cardiomyopathy History of methamphetamine abuse Current alcohol use disorder Obesity Plan: Repeat echocardiogram: Left ventricle. Global left ventricle hypokinesis. EF 25% in moderately reduced. Moderately dilated left atrium. Moderate degree mitral regurgitation. Dyskinesis of IBS and dilated RV. AICD last interrogated in 2023 at [facility] Continue IV Lasix Continue GDMT as tolerated Negative drug screen Daily weights strict I & Os Rest of the management as per hospitalist RCRI (Conrado criteria) 1 = 6%; the patient has no cardiac contraindications to proceed with the procedure. Cardiac symptoms have been ruled out. Patient has underlying heart failure with reduced ejection fraction, no coronary artery disease and currently no equivalent of cardiac symptoms. Patient notes good functional capacity equivalent to 4 mets and is able to climb a flight of stairs. There is no additional cardiac workup indicated at this time. Patient is at moderate risk for a moderate risk procedure Thank you so much for the opportunity to consult on your patient. Cardiology team will follow the patient. In case of any questions or concerns please feel free to reach out. Plan discussed with Dr. Gotti Plan discussed with: Patient, Other (RN) Visit Coding Cardiology RES Date of Service: Mar 10, 2025 Billing Provider: STEPHANY GOTTI MD Cardiology Common Codes: [id number] HOSP CARE(SO Nunez RESIDENT Mar 10, 2025 12:13
--- NOTE | 2025-03-10 23:05 | DVHPN2 ---
Consult Progress Note Date Seen: Mar 10, 2025 Subjective Other Systems: Patient was seen and evaluated in follow up. Patient continues to experience right-sided flank tenderness and nausea. Patient is scheduled to undergo ESWL today. CMP is unremarkable. Telemetry reviewed. Objective vital signs Vital Sign Date Time Temp Pulse Resp B/P (MAP) Pulse Ox O2 Delivery O2 Flow Rate FiO2 03/10/25 12:48 97.5 77 20 130/82 (98) 92 97.5 03/10/25 10:54 Room Air 94 03/10/25 10:40 7.0 Total Intake and Output 03/09/25 03/09/25 03/10/25 15:00 23:00 07:00 Intake Total 50 ml 780 ml 440 ml Output Total 2052 ml 450 ml Balance 50 ml -1272 ml -10 ml medications Current Medications Medications Dose Ordered Sig/Ilana Route Start Time Stop Time Status Last Admin Dose Admin Nitroglycerin 0.4 mg Q5MINP PRN SL 03/07/25 17:15 Morphine Sulfate 2 mg Q30M PRN IV 03/07/25 17:15 Acetaminophen 500 mg Q4HPRN PRN PO 03/07/25 17:30 Acetaminophen/ Hydrocodone Bitart 1 tab Q4HPRN PRN PO 03/07/25 17:30 03/09/25 22:34 1 TAB Morphine Sulfate 1 mg Q4HPRN PRN IV 03/07/25 17:30 03/09/25 00:43 1 MG Aspirin 81 mg DAILY PO 03/08/25 10:00 03/09/25 09:42 81 MG Atorvastatin Calcium 40 mg HS PO 03/07/25 22:00 03/09/25 20:53 40 MG Tamsulosin HCl 0.4 mg QPM PO 03/08/25 18:00 03/09/25 17:08 0.4 MG Ceftriaxone Sodium 50 ml @ 100 mls/hr DAILY@09 IV 03/08/25 09:00 03/10/25 11:54 100 MLS/HR Ranolazine 500 mg BID PO 03/07/25 22:00 03/09/25 20:53 500 MG Sacubitril/ Valsartan 1 tab BID PO 03/07/25 22:00 03/09/25 22:34 1 TAB Carvedilol 6.25 mg Q12HR PO 03/07/25 22:00 03/10/25 11:55 6.25 MG Furosemide 40 mg DAILY IV 03/08/25 10:00 03/10/25 11:54 40 MG Enoxaparin Sodium 40 mg DAILY SC 03/08/25 10:00 Hold 03/09/25 09:42 40 MG Ergocalciferol 50,000 unit Q7D PO 03/08/25 08:00 03/08/25 10:26 50,000 UNIT Examination: GENERAL:Normal, HEENT:Normal, NECK:Normal, LUNGS:Normal, CVS:Normal, ABDOMEN:Abnormal (Right CVA tenderness), MSK:Normal, SKIN:Normal laboratory and microbiology Laboratory Tests 03/10/25 06:54 03/08/25 05:10 Test 03/10/25 06:54 Range/Units Serum Glucose 94 74-106 mg/dL Problem List/Assessment/Plan Problem List/Assessment/Plan Problem List/Assessment/Plan NSTEMI likely type 2 secondary to decompensated heart failure with reduced ejection fraction, NYHA class 3. History of nonischemic cardiomyopathy/dilated cardiomyopathy. History of methamphetamine abuse. Current alcohol use disorder. Obesity. Plan: Continued all current supportive medical care. Patient has been seen by Abby Sevilla Resident on my behalf, we have discussed the plan with the patient. Repeat echocardiogram: Left ventricle. Global left ventricle hypokinesis. EF 25% in moderately reduced. Moderately dilated left atrium. Moderate degree mitral regurgitation. Dyskinesis of IBS and dilated RV. AICD last interrogated in 2023 at [facility]. Continue IV Lasix. Continue GDMT as tolerated. Negative drug screen. Daily weights. Strict I & Os. RCRI (Conrado criteria) 1 = 6%; the patient has no cardiac contraindications to proceed with the procedure. Cardiac symptoms have been ruled out. Patient has underlying heart failure with reduced ejection fraction, no coronary artery disease and currently no equivalent of cardiac symptoms. Patient notes good functional capacity equivalent to 4 mets and is able to climb a flight of stairs. Patient is at moderate risk for a moderate risk procedure Additional plan as per the hospital course. Plan discussed with: Patient Date of Service: Mar 10, 2025 Billing Provider: STEPHANY GOTTI MD Cardiology Common Codes: [id number] INP/OBS CARE (High) STEPHANY GOTTI MD Mar 10, 2025 14:11
[2025-03-11] VITALS (8 sets, daily range): BP systolic 97–127; BP diastolic 61–79; PULSE 71–96; RESP 18–20; TEMP 97.5–99.2; O2SAT 91–98
[2025-03-11] MEDS: MORPHINE SULFATE INJ 2 MG/ml SYRG IV PRN
[2025-03-11 07:09] LABS: Chloride 104 mmol/L (98-107); Potassium 4.1 mmol/L (3.5-5.1)
[2025-03-11 07:10] LABS: Anion Gap 9 (5-15); Calcium 9.4 mg/dL (8.7-10.4); Carbon Dioxide 23 mmol/L (20-31)
[2025-03-11 07:15] LABS: BUN/Creatinine Ratio 15.1 (10.0-20.0); Blood Urea Nitrogen 14 mg/dL (9-23)
[2025-03-11 07:19] LABS: Glucose 133 mg/dL (74-106); Sodium 136 mmol/L (136-145)
--- NOTE | 2025-03-11 11:57 | DVHPNRES ---
Progress Note Date Seen: Mar 11, 2025 Resident Creating Document: SO BOWMAN RESIDENT Medical Necessity Reason Pt with a Central, PICC or Fol: No Subjective Review of Systems Notes lower abdominal tenderness which is different from her initial flank pain. S/p ESWL. Reddish tinged urine, possible hematuria. Denies any shortness of breaths, chest pain. Objective vital signs Vital Sign Date Time Temp Pulse Resp B/P (MAP) Pulse Ox O2 Delivery O2 Flow Rate FiO2 03/11/25 09:54 96 119/75 03/11/25 09:52 20 03/11/25 08:27 97.5 94 97.5 03/10/25 20:00 Room Air* 0 21 Total Intake and Output 03/10/25 03/10/25 03/11/25 15:00 23:00 07:00 Intake Total 350 ml 615 ml 400 ml Output Total 550 ml 500 ml Balance 350 ml 65 ml -100 ml medications Current Medications Medications Dose Ordered Sig/Ilana Route Start Time Stop Time Status Last Admin Dose Admin Nitroglycerin 0.4 mg Q5MINP PRN SL 03/07/25 17:15 Morphine Sulfate 2 mg Q30M PRN IV 03/07/25 17:15 03/11/25 00:00 2 MG Acetaminophen 500 mg Q4HPRN PRN PO 03/07/25 17:30 Acetaminophen/ Hydrocodone Bitart 1 tab Q4HPRN PRN PO 03/07/25 17:30 03/11/25 11:31 1 TAB Morphine Sulfate 1 mg Q4HPRN PRN IV 03/07/25 17:30 03/11/25 09:52 1 MG Aspirin 81 mg DAILY PO 03/08/25 10:00 03/09/25 09:42 81 MG Atorvastatin Calcium 40 mg HS PO 03/07/25 22:00 03/10/25 22:07 40 MG Tamsulosin HCl 0.4 mg QPM PO 03/08/25 18:00 03/10/25 17:21 0.4 MG Ceftriaxone Sodium 50 ml @ 100 mls/hr DAILY@09 IV 03/08/25 09:00 03/11/25 09:54 100 MLS/HR Ranolazine 500 mg BID PO 03/07/25 22:00 03/11/25 09:54 500 MG Sacubitril/ Valsartan 1 tab BID PO 03/07/25 22:00 03/11/25 09:54 1 TAB Carvedilol 6.25 mg Q12HR PO 03/07/25 22:00 03/11/25 09:54 6.25 MG Furosemide 40 mg DAILY IV 03/08/25 10:00 03/11/25 09:53 40 MG Enoxaparin Sodium 40 mg DAILY SC 03/08/25 10:00 Hold 03/09/25 09:42 40 MG Ergocalciferol 50,000 unit Q7D PO 03/08/25 08:00 03/08/25 10:26 50,000 UNIT Examination General: Obese, afebrile, mucosae are moist Cardiovascular: Regular S1 and S2. No murmurs, gallops or rubs. No JVD elevation. No pedal edema Respiratory: Normal B/L air entry on room air. Clear lung sounds on auscultation Abdomen: Soft, right flank tenderness, lower abdominal pain and tenderness to palpation, normoactive bowel sounds, no rebound tenderness, no organomegaly, no masses. Right CVA tenderness Genitourinary: Deferred MSK/skin: Mobilizes 4 limbs. Skin is dry and warm Neurological: No motor, no sensitive deficits, normal speech. Pupils are isocoric and reactive. Psych/Mental Status: A/Ox3 laboratory and microbiology Laboratory Tests 03/11/25 06:04 03/08/25 05:10 Test 03/11/25 06:04 Range/Units Serum Glucose 133 H 74-106 mg/dL Labs and/or images reviewed: Labs reviewed by me, Image(s) reviewed by me Problem List/Assessment/Plan Problem List/Assessment/Plan NSTEMI likely type 2 secondary to decompensated heart failure with reduced ejection fraction, NYHA class 3 History of nonischemic cardiomyopathy/dilated cardiomyopathy History of methamphetamine abuse Current alcohol use disorder Obesity Plan: Repeat echocardiogram: Left ventricle. Global left ventricle hypokinesis. EF 25% in moderately reduced. Moderately dilated left atrium. Moderate degree mitral regurgitation. Dyskinesis of IBS and dilated RV. AICD last interrogated in 2023 at [facility] Continue IV Lasix Continue GDMT as tolerated Negative drug screen Daily weights strict I & Os Rest of the management as per hospitalist RCRI (Conrado criteria) 1 = 6%; the patient has no cardiac contraindications to proceed with the procedure. Cardiac symptoms have been ruled out. Patient has underlying heart failure with reduced ejection fraction, no coronary artery disease and currently no equivalent of cardiac symptoms. Patient notes good functional capacity equivalent to 4 mets and is able to climb a flight of stairs. There is no additional cardiac workup indicated at this time. Patient is at moderate risk for a moderate risk procedure Thank you so much for the opportunity to consult on your patient. Cardiology team will follow the patient. In case of any questions or concerns please feel free to reach out. Plan discussed with Dr. Gotti Plan discussed with: Patient, Other (RN) Visit Coding Cardiology RES Date of Service: Mar 11, 2025 Billing Provider: STEPHANY GOTTI MD Cardiology Common Codes: [id number] [facility] CARE(SO Nunez RESIDENT Mar 11, 2025 11:57
--- NOTE | 2025-03-11 14:19 | DVHPN2 ---
Consult Progress Note Date Seen: Mar 11, 2025 Subjective Other Systems: Patient was seen and evaluated in follow up. Patient reports lower abdominal tenderness which is different from her flank pain. Patient is s/p ESWL. Patient has reddish tinged urine, possible hematuria. Denies any shortness of breath or chest pain. BS in the 130's. Objective vital signs Vital Sign Date Time Temp Pulse Resp B/P (MAP) Pulse Ox O2 Delivery O2 Flow Rate FiO2 03/11/25 12:29 97.6 79 20 97/61 (73) 94 97.6 03/11/25 08:00 Room Air* 0 21 Total Intake and Output 03/10/25 03/10/25 03/11/25 15:00 23:00 07:00 Intake Total 350 ml 615 ml 400 ml Output Total 550 ml 500 ml Balance 350 ml 65 ml -100 ml medications Current Medications Medications Dose Ordered Sig/Ilana Route Start Time Stop Time Status Last Admin Dose Admin Nitroglycerin 0.4 mg Q5MINP PRN SL 03/07/25 17:15 Morphine Sulfate 2 mg Q30M PRN IV 03/07/25 17:15 03/11/25 00:00 2 MG Acetaminophen 500 mg Q4HPRN PRN PO 03/07/25 17:30 Acetaminophen/ Hydrocodone Bitart 1 tab Q4HPRN PRN PO 03/07/25 17:30 03/11/25 11:31 1 TAB Morphine Sulfate 1 mg Q4HPRN PRN IV 03/07/25 17:30 03/11/25 09:52 1 MG Aspirin 81 mg DAILY PO 03/08/25 10:00 03/09/25 09:42 81 MG Atorvastatin Calcium 40 mg HS PO 03/07/25 22:00 03/10/25 22:07 40 MG Tamsulosin HCl 0.4 mg QPM PO 03/08/25 18:00 03/10/25 17:21 0.4 MG Ceftriaxone Sodium 50 ml @ 100 mls/hr DAILY@09 IV 03/08/25 09:00 03/11/25 09:54 100 MLS/HR Ranolazine 500 mg BID PO 03/07/25 22:00 03/11/25 09:54 500 MG Sacubitril/ Valsartan 1 tab BID PO 03/07/25 22:00 03/11/25 09:54 1 TAB Carvedilol 6.25 mg Q12HR PO 03/07/25 22:00 03/11/25 09:54 6.25 MG Furosemide 40 mg DAILY IV 03/08/25 10:00 03/11/25 09:53 40 MG Enoxaparin Sodium 40 mg DAILY SC 03/08/25 10:00 Hold 03/09/25 09:42 40 MG Ergocalciferol 50,000 unit Q7D PO 03/08/25 08:00 03/08/25 10:26 50,000 UNIT Examination: GENERAL:Normal, HEENT:Normal, NECK:Normal, LUNGS:Normal, CVS:Normal, ABDOMEN:Abnormal, MSK:Normal, NEURO:Normal laboratory and microbiology Laboratory Tests 03/11/25 06:04 03/08/25 05:10 Test 03/11/25 06:04 Range/Units Serum Glucose 133 H 74-106 mg/dL Problem List/Assessment/Plan Problem List/Assessment/Plan Problem List/Assessment/Plan NSTEMI likely type 2 secondary to decompensated heart failure with reduced ejection fraction, NYHA class 3. History of nonischemic cardiomyopathy/dilated cardiomyopathy. History of methamphetamine abuse. Current alcohol use disorder. Obesity. Plan: Continued all current supportive medical care. Patient has been seen by Abby Sevilla Resident on my behalf, we have discussed the plan with the patient. Repeat echocardiogram: Left ventricle. Global left ventricle hypokinesis. EF 25% in moderately reduced. Moderately dilated left atrium. Moderate degree mitral regurgitation. Dyskinesis of IBS and dilated RV. AICD last interrogated in 2023 at [facility]. Continue IV Lasix. Continue GDMT as tolerated. Negative drug screen. Daily weights. strict I & Os. Rest of the management as per hospitalist. RCRI (Conrado criteria) 1 = 6%; the patient has no cardiac contraindications to proceed with the procedure. Cardiac symptoms have been ruled out. Patient has underlying heart failure with reduced ejection fraction, no coronary artery disease and currently no equivalent of cardiac symptoms. Patient notes good functional capacity equivalent to 4 mets and is able to climb a flight of stairs. There is no additional cardiac workup indicated at this time. Patient is at moderate risk for a moderate risk procedure Additional plan as per the hospital course. Plan discussed with: Patient Date of Service: Mar 11, 2025 Billing Provider: STEPHANY GOTTI MD Cardiology Common Codes: [id number] INP/OBS CARE (High) STEPHANY GOTTI MD Mar 11, 2025 13:04
--- NOTE | 2025-03-11 16:18 | DVHPNRES ---
Progress Note Date Seen: Mar 11, 2025 Resident Creating Document: MICKY CARROLL RESIDENT Medical Necessity Reason Pt with a Central, PICC or Fol: No Subjective Review of Systems This is a 49-year-old female patient with hypertension, congestive heart failure, CAD status post AICD who presented to the ER with a chief complaint of right flank pain that started earlier this morning. Patient reports intractable right flank pain radiating to the epigastric region starting earlier this afternoon, associated nausea and dizziness. She reports pain while urination. Denies fever or chills. Also says that she has been experiencing some left arm numbness and left jaw numbness associated with chest pain which is pressure type, for the past month, unrelated to exertion or deep breaths. Denies shortness of breaths, diaphoresis. Past medical history: Hypertension, congestive heart failure, CAD status post AICD, history of suicide attempt, chronic alcohol dependence, polysubstance use, NSTEMI Home medication: Lasix, Entresto, potassium tablets PCP: Patient does not remember Social history: Lives with son 03/07-Patient seen and examined in the ER. Reports intractable pain and nausea. Patient admitted telemetry unit given chest pain. 03/08-patient seen and examined. Reports pressure-type chest pain, abdominal pain getting better. Troponin slightly trending up, cardiology consulted. 03/09-patient seen and examined. Reports intractable pain right flank, Ballard draining dark urine. Echo shows LVEF 25%. Urology consulted 03/04-patient undergoing ESWL. 03/05-patient seen and examined at bedside, Ballard seen with the hematuria, patient reports persistent pain in the right flank. Pending urology follow up Objective vital signs Vital Sign Date Time Temp Pulse Resp B/P (MAP) Pulse Ox O2 Delivery O2 Flow Rate FiO2 03/11/25 12:29 97.6 79 20 97/61 (73) 94 97.6 03/11/25 08:00 Room Air* 0 21 Total Intake and Output 03/10/25 03/10/25 03/11/25 15:00 23:00 07:00 Intake Total 350 ml 615 ml 400 ml Output Total 550 ml 500 ml Balance 350 ml 65 ml -100 ml medications Current Medications Medications Dose Ordered Sig/Ilana Route Start Time Stop Time Status Last Admin Dose Admin Nitroglycerin 0.4 mg Q5MINP PRN SL 03/07/25 17:15 Morphine Sulfate 2 mg Q30M PRN IV 03/07/25 17:15 03/11/25 00:00 2 MG Acetaminophen 500 mg Q4HPRN PRN PO 03/07/25 17:30 Acetaminophen/ Hydrocodone Bitart 1 tab Q4HPRN PRN PO 03/07/25 17:30 03/11/25 11:31 1 TAB Morphine Sulfate 1 mg Q4HPRN PRN IV 03/07/25 17:30 03/11/25 09:52 1 MG Aspirin 81 mg DAILY PO 03/08/25 10:00 03/09/25 09:42 81 MG Atorvastatin Calcium 40 mg HS PO 03/07/25 22:00 03/10/25 22:07 40 MG Tamsulosin HCl 0.4 mg QPM PO 03/08/25 18:00 03/10/25 17:21 0.4 MG Ceftriaxone Sodium 50 ml @ 100 mls/hr DAILY@09 IV 03/08/25 09:00 03/11/25 09:54 100 MLS/HR Ranolazine 500 mg BID PO 03/07/25 22:00 03/11/25 09:54 500 MG Sacubitril/ Valsartan 1 tab BID PO 03/07/25 22:00 03/11/25 09:54 1 TAB Carvedilol 6.25 mg Q12HR PO 03/07/25 22:00 03/11/25 09:54 6.25 MG Furosemide 40 mg DAILY IV 03/08/25 10:00 03/11/25 09:53 40 MG Enoxaparin Sodium 40 mg DAILY SC 03/08/25 10:00 Hold 03/09/25 09:42 40 MG Ergocalciferol 50,000 unit Q7D PO 03/08/25 08:00 03/08/25 10:26 50,000 UNIT Examination Obese female patient sitting in the chair, mild distress General: Obese, afebrile, mucosae are moist Cardiovascular: Regular S1 and S2. No murmurs, gallops or rubs. No JVD elevation. No pedal edema Respiratory: Normal B/L air entry on room air. Clear lung sounds on auscultation Abdomen: Soft, right flank tenderness, nondistended, normoactive bowel sounds, no rebound tenderness, no organomegaly, no masses. Right CVA tenderness Genitourinary: Deferred MSK/skin: Mobilizes 4 limbs. Skin is dry and warm Neurological: No motor, no sensitive deficits, normal speech. Pupils are isocoric and reactive. Psych/Mental Status: A/Ox3 laboratory and microbiology Laboratory Tests 03/11/25 06:04 03/08/25 05:10 Test 03/11/25 06:04 Range/Units Serum Glucose 133 H 74-106 mg/dL Labs and/or images reviewed: Labs reviewed by me, Image(s) reviewed by me Problem List/Assessment/Plan Problem List/Assessment/Plan CT abdomen: 1. Mild right hydronephrosis calculus in the calyx of the right kidney. There is a 6-7 mm calculus within the bladder on the right. This is consistent with a recently passed ureteral calculus. 2. Cholelithiasis 3. No findings of bowel obstruction. Abdominal ultrasound 03/08: A 6 mm calculus in the distal right ureter at the ureterovesicular junction. Trace debris in the urinary bladder, correlate with urinalysis for cystitis. Redemonstration of a 7.5 cm cystic mass in the pelvis posterior to the bladder Acute abdominal pain secondary to nephrolithiasis status post cystoscopy with evacuation of bladder calculi, cystoscopy with right retrograde pyelogram and right ureteral stent placement 03/10 Intractable nausea [id number] right hydronephrosis Nonobstructing bilateral renal calculi Right UVJ stone, 6 mm, with mild hydronephrosis Left renal cyst Acute complicated cystitis Cystic lesion 7.5 cm posterior to the bladder in the pelvis Avoiding IV fluids given severe systolic CHF Tamsulosin 0.4 mg daily UDS negative, UA shows 25 WBCs, few bacteria. kidney ultrasound shows mild right hydronephrosis, nonobstructing bilateral renal calculi, mild hepatomegaly with hepatic steatosis, left renal cyst. IV ceftriaxone daily Urology consulted- patient underwent cystoscopy with evacuation of bladder calculi, cystoscopy with right retrograde pyelogram and right ureteral stent placement Plan: outpatient scheduling of cystoscopy with stent removal Cholelithiasis ruled out cholecystitis Mild transaminitis secondary to steatosis Liver ultrasound shows mild hepatomegaly with the hepatic steatosis. No CBD dilation. Chest pain ruled out ACS NSTEMI type 2 Hypertension Systolic Congestive heart failure-EF Dilated cardiomyopathy likely drug-induced History of polysubstance use Troponin 133 , trending up to 190, cardiology consulted Echocardiogram shows dilated LV, global LV hypokinesis, LVEF 25%, moderately dilated LA, moderate MR DILATED LEFT VENTRICLE BNP 2 1 9 EKG shows sinus rhythm, nonspecific ST changes which were seen in previous EKG Chest x-ray shows cardiomegaly with congestive heart failure Resume home medication including Coreg b.i.d., lisinopril 5 mg daily, ranolazine 500 mg b.i.d., Entresto b.i.d., Lasix 40 mg IV daily Aspirin and atorvastatin daily Chronic alcohol dependence Counseled regarding cessation for more than 20 minutes History of suicide attempt-no HI/SI Monitor Vitamin-D deficiency Supplemented Lovenox 40 mg sc daily Fluid restriction Strict I&Os Cardiac diet Plan discussed with patient, son at bedside in which all questions have been answered Goals of care discussed for more than 20 minutes, full code status Case discussed with Dr. Ramires. Plan discussed with: Patient Date of Service: Mar 11, 2025 Billing Provider: RICH ZHONG MD Common Visit Codes: [id number] INP/OBS CARE(HIGH) MICKY CARROLL RESIDENT Mar 11, 2025 16:18 RICH ZHONG MD Mar 14, 2025 10:10
[2025-03-12 01:00] VITALS: BP 95/62; PULSE 65; RESP 18; TEMP 97.6; O2SAT 97
[2025-03-12 05:00] VITALS: BP 101/73; PULSE 68; RESP 18; TEMP 97.1; O2SAT 97
[2025-03-12 08:00] VITALS: PULSE 73; RESP 19; O2SAT 92
[2025-03-12 08:23] LABS: Anion Gap 10 (5-15); Carbon Dioxide 26 mmol/L (20-31); Chloride 105 mmol/L (98-107); Potassium 3.6 mmol/L (3.5-5.1); Sodium 141 mmol/L (136-145)
[2025-03-12 08:24] LABS: Calcium 9.4 mg/dL (8.7-10.4)
[2025-03-12 08:29] LABS: BUN/Creatinine Ratio 17.9 (10.0-20.0); Blood Urea Nitrogen 15 mg/dL (9-23); Glucose 79 mg/dL (74-106)
[2025-03-12 09:00] VITALS: BP 91/53; PULSE 71; RESP 17; TEMP 97.9; O2SAT 94
[2025-03-12] MEDS ORDERED: IBUP1TAB5 PO (11:39)
[2025-03-12 12:50] VITALS: BP 95/66; PULSE 71; TEMP 36.6
[2025-03-12 13:00] VITALS: BP 111/83; PULSE 89; RESP 18; TEMP 97.8; O2SAT 93
--- NOTE | 2025-03-12 15:58 | DVHDSRES ---
Discharge Summary Date of Admission Resident Creating Document: ANISH WOOD RESIDENT Mar 07, 2025 at 17:06 Date of Discharge: Mar 12, 2025 Admitting Diagnosis Right flank pain Labs/Diagnostic Data: Laboratory Results Test 03/12/25 07:14 03/10/25 06:54 03/09/25 05:57 03/08/25 05:10 Sodium Level 141 mmol/L (136-145) Potassium Level 3.6 mmol/L (3.5-5.1) Chloride Level 105 mmol/L (98-107) Carbon Dioxide Level 26 mmol/L (20-31) Anion Gap 10 (5-15) Blood Urea Nitrogen 15 mg/dL (9-23) Creatinine 0.84 mg/dL (0.550-1.02) Glomerular Filtration Rate Calc 86 mL/min (>90) BUN/Creatinine Ratio 17.9 (10.0-20.0) Serum Glucose 79 mg/dL (74-106) Calcium Level 9.4 mg/dL (8.7-10.4) Prothrombin Time 11.0 sec (9.3-11.8) Prothrombin Time INR 1.04 (0.9-1.15) Activated Partial Thromboplast Time 25.2 SEC (24.5-34.5) Beta HCG, Quantitative 0.6 mIU/mL (1.5-4.2) Troponin I High Sensitivity 183 ng/L (</=34) White Blood Count 7.8 10^3/uL (4.4-10.8) Red Blood Count 4.53 10^6/uL (4.0-5.20) Hemoglobin 14.3 g/dL (12.2-16.2) Hematocrit 41.8 % (36.0-46.0) Mean Corpuscular Volume 92.5 fL (80.0-100.0) Mean Corpuscular Hemoglobin 31.5 pg (28.0-32.0) Mean Corpuscular Hemoglobin Concent 34.1 g/dL (32.0-36.0) Red Cell Distribution Width 14.4 % (11.8-14.3) Platelet Count 231 10^3/uL (140-450) Mean Platelet Volume 8.4 fL (6.9-10.8) Neutrophils (%) (Auto) 75.4 % (37.0-80.0) Lymphocytes (%) (Auto) 13.4 % (10.0-50.0) Monocytes (%) (Auto) 7.3 % (0.0-12.0) Eosinophils (%) (Auto) 3.3 % (0.0-7.0) Basophils (%) (Auto) 0.6 % (0.0-2.0) Neutrophils # (Auto) 5.8 10 ^3/uL (1.6-8.6) Lymphocytes # (Auto) 1.0 10 ^3/uL (0.4-5.4) Monocytes # (Auto) 0.6 10 ^3/uL (0-1.3) Eosinophils # (Auto) 0.3 10 ^3/uL (0-0.8) Basophils # (Auto) 0 10 ^3/uL (0-0.2) Nucleated Red Blood Cells 0.1 % Total Bilirubin 1.2 mg/dL (0.2-1.0) Aspartate Amino Transferase (AST) 51 U/L (<34) Alanine Aminotransferase (ALT) 48 U/L (7-40) Alkaline Phosphatase 74 U/L (46-116) Total Protein 6.5 g/dL (5.7-8.2) Albumin 3.6 g/dL (3.2-4.8) Test 03/07/25 18:54 03/07/25 17:00 03/07/25 15:46 Influenza Type A Antigen Negative (Negative) Influenza Type B Antigen Negative (Negative) SARS-CoV-2 Antigen (Rapid) Negative (NEGATIVE) Urine Color Light-yellow (Yellow) Urine Clarity Ex.turbid (Clear) Urine pH 5.5 (5.0-9.0) Urine Specific [place] 1.014 (1.001-1.035) Urine Protein Trace (Negative) Urine Ketones Negative (Negative) Urine Blood 3+ /uL (Negative) Urine Nitrite Negative (Negative) Urine Bilirubin Negative (Negative) Urine Urobilinogen Normal mg/dL (Negative) Urine Leukocyte Esterase Negative /uL (Negative) Urine RBC 271 /hpf (0 - 4) Urine Microscopic WBC 25 /HPF (0-5) Urine Squamous Epithelial Cells Few /hpf (<5) Urine Uric Acid Crystals Mod /hpf (None Seen) Urine Bacteria Few /hpf (None Seen) Urine Glucose Normal mg/dL (Normal) Urine Opiates Screen Neg (NEGATIVE) Urine Fentanyl Screen Neg (NEGATIVE) Urine Barbiturates Screen Neg (NEGATIVE) Urine Phencyclidine Screen Neg (NEGATIVE) Urine Amphetamines Screen Neg (NEGATIVE) Urine Benzodiazepines Screen Neg (NEGATIVE) Urine Cocaine Screen Neg (NEGATIVE) Urine Cannabinoids Screen Neg (NEGATIVE) Hemoglobin A1c 5.7 % A1C (<5.7) Lactic Acid Level 1.7 mmol/L (0.4-2.0) Magnesium Level 1.9 mg/dL (1.6-2.6) B-Type Natriuretic Peptide 219.54 pg/mL (0-100) Vitamin B12 Level 488 pg/mL (211-911) Vitamin D 25-Hydroxy 11.6 ng/mL (30.0-100) Thyroid Stimulating Hormone (TSH) 0.83 uIU/mL (0.55-4.78) Other Laboratory Tests 03/12/25 07:14 03/08/25 05:10 Brief Hx & Hospital Course: HPI: 49-year-old female patient with hypertension, congestive heart failure, CAD status post AICD who presented to the ER with a chief complaint of right flank pain that started earlier this morning. Patient reports intractable right flank pain radiating to the epigastric region starting earlier this afternoon, associated nausea and dizziness. She reports pain while urination. Denies fever or chills. Also says that she has been experiencing some left arm numbness and left jaw numbness associated with chest pain which is pressure type, for the past month, unrelated to exertion or deep breaths. Denies shortness of breaths, diaphoresis. Past medical history: Hypertension, congestive heart failure, CAD status post AICD, history of suicide attempt, chronic alcohol dependence, polysubstance use, NSTEMI Home medication: Lasix, Entresto, potassium tablets PCP: Patient does not remember Social history: Lives with son Summary: Patient admitted to the hospital due to intractable right flank pain, patient was diagnosed with nephrolithiasis, CT shows mild right hydronephrosis with calculus in the calyx of the right kidney there is a 6-7 mL calculus within the bladder on the right. Patient underwent cystoscopy with evacuation of bladder calculi, and ESWL. Two the patient is hemodynamically stable and patient is going home with ibuprofen 600 mg p.r.n., advised patient to follow up with Urology and PCP in 1-2 weeks. General: Obese, afebrile, mucosae are moist Cardiovascular: Regular S1 and S2. No murmurs, gallops or rubs. No JVD elevation. No pedal edema Respiratory: Normal B/L air entry on room air. Clear lung sounds on auscultation Abdomen: Soft, right flank tenderness, nondistended, normoactive bowel sounds, no rebound tenderness, no organomegaly, no masses. Right CVA tenderness MSK/skin: Mobilizes 4 limbs. Skin is dry and warm Neurological: No motor, no sensitive deficits, normal speech. Pupils are isocoric and reactive. Psych/Mental Status: A/Ox3 Condition at Discharge: Stable Final Diagnosis/Problems List Acute abdominal pain secondary to nephrolithiasis status post cystoscopy with evacuation of bladder calculi, cystoscopy with right retrograde pyelogram and right ureteral stent placement 03/10 Intractable nausea [id number] right hydronephrosis Nonobstructing bilateral renal calculi Right UVJ stone, 6 mm, with mild hydronephrosis Left renal cyst Acute complicated cystitis Cystic lesion 7.5 cm posterior to the bladder in the pelvis Cholelithiasis ruled out cholecystitis Mild transaminitis secondary to steatosis Chest pain ruled out ACS NSTEMI type 2 Hypertension Systolic Congestive heart failure-EF Dilated cardiomyopathy likely drug-induced History of polysubstance use Chronic alcohol dependence History of suicide attempt-no HI/SI Vitamin-D deficiency Discharge Disposition: Home SNF Discharge Will this Physician continue t: No Discharge Instruct/Medications Diet: Cardiac 2g Na,low cholest Activity: No Restrictions, As Tolerated Follow Up/Referral: Follow up with urologist as scheduled Follow up with PCP in 1-2 weeks Medications: Ibuprofen 600 mg q.6 hour as needed Resume all other medications Discharge Statement: "Patient was advised to return to the ER or call 911 if any headaches, dizziness, shortness of breath, chest pain, abdominal pain, bleeding, fevers, or worsening of medical condition. Patient was counseled about treatment plan, medications, possible side effects, patientverbalized understanding. All questions were answered to the best of my ability. This discharge took greater then 30 minutes in planning, reviewing documentation, counseling the patient, and discussing with other team members." ASSESSMENT ASSESSMENT Assessment Acute abdominal pain secondary to nephrolithiasis status post cystoscopy with evacuation of bladder calculi, cystoscopy with right retrograde pyelogram and right ureteral stent placement 03/10 Intractable nausea [id number] right hydronephrosis Nonobstructing bilateral renal calculi Right UVJ stone, 6 mm, with mild hydronephrosis Left renal cyst Acute complicated cystitis Cystic lesion 7.5 cm posterior to the bladder in the pelvis Cholelithiasis ruled out cholecystitis Mild transaminitis secondary to steatosis Chest pain ruled out ACS NSTEMI type 2 Hypertension Systolic Congestive heart failure-EF Dilated cardiomyopathy likely drug-induced History of polysubstance use Chronic alcohol dependence History of suicide attempt-no HI/SI Vitamin-D deficiency Date of Service: Mar 12, 2025 Billing Provider: LIU GUZMÁN MD Common Visit Codes: [id number] DISCH DAY >30min ANISH WOOD RESIDENT Mar 12, 2025 15:58 LIU GUZMÁN MD Mar 14, 2025 11:42
--- NOTE | 2025-03-12 23:11 | DVHPN2 ---
Progress Note - Dictate Date Seen: Mar 12, 2025 Medical Necessity Reason Pt with a Central, PICC or Fol: No Subjective Patient was seen and evaluated in follow up. Patient has no new complaints at this time. Patient denies any cardiac symptoms. Patient is cardiac stable for discharge. vital signs Vital Sign Date Time Temp Pulse Resp B/P (MAP) Pulse Ox O2 Delivery O2 Flow Rate FiO2 03/12/25 13:00 97.8 89 18 111/83 (92) 93 97.8 03/12/25 08:00 Room Air* 0 21 Total Intake and Output 03/11/25 03/11/25 03/12/25 15:00 23:00 07:00 Intake Total 480 ml 1180 ml 800 ml Output Total 2200 ml 1300 ml Balance 480 ml -1020 ml -500 ml objective GENERAL: Alert and oriented x 3. No acute distress. EYES: PERRL, EOMI. Anicteric. HENT: Moist mucous membranes. LUNGS: Clear to auscultation bilaterally. CARDIOVASCULAR: Regular rate and rhythm. ABDOMEN: Soft, nontender and nondistended. EXTREMITIES: No edema. NEUROLOGIC: No focal neurological deficits. SKIN: Warm, dry. laboratory and microbiology Laboratory Tests 03/12/25 07:14 03/08/25 05:10 Test 03/12/25 07:14 Range/Units Serum Glucose 79 74-106 mg/dL Problem List NSTEMI likely type 2 secondary to decompensated heart failure with reduced ejection fraction, NYHA class 3. History of nonischemic cardiomyopathy/dilated cardiomyopathy. History of methamphetamine abuse. Current alcohol use disorder. Obesity. Assessment/Plan Continued all current supportive medical care. Entresto. Nitro SL. DVT prophylactics. Diuretics with Lasix. Aspirin, Lipitor. Morphine and [place] for pain management. Additional plan as per the hospital course. Plan discussed with: Patient STEPHANY GOTTI MD Mar 12, 2025 15:09
== END 2025-03-12 15:05 | disposition home or self-care (01) | DRG 463 ==
LOC: ER 15:17 → OVERFLOW 17:06 → WEST WING 17:08 → TELE-WESTW 03-08 03:29 → WEST WING 03-09 16:06
PROVIDERS: ADMIT Student in an Organized Health Care Education/Training Program; ATTEND Student in an Organized Health Care Education/Training Program
PROC: 0T768DZ Dilation of Right Ureter with Intraluminal Device, Via Natural or Artificial Opening Endoscopic (ICD-10-PCS; 2025-03-10)
PROC: BT1D1ZZ Fluoroscopy of Right Kidney, Ureter and Bladder using Low Osmolar Contrast (ICD-10-PCS; 2025-03-10)
PROC: 0TCB8ZZ Extirpation of Matter from Bladder, Via Natural or Artificial Opening Endoscopic (ICD-10-PCS; principal; 2025-03-10 09:52)
DX: N13.6 Pyonephrosis (principal); I21.A1 Myocardial infarction type 2; I50.23 Acute on chronic systolic (congestive) heart failure; I42.7 Cardiomyopathy due to drug and external agent; K76.0 Fatty (change of) liver, not elsewhere classified; I11.0 Hypertensive heart disease with heart failure; E66.9 Obesity, unspecified; E78.5 Hyperlipidemia, unspecified; Z68.39 Body mass index [BMI] 39.0-39.9, adult; F32.A Depression, unspecified; F41.9 Anxiety disorder, unspecified; F10.20 Alcohol dependence, uncomplicated; I25.10 Atherosclerotic heart disease of native coronary artery without angina pectoris; K80.20 Calculus of gallbladder without cholecystitis without obstruction; Z20.822 Contact with and (suspected) exposure to COVID-19; E55.9 Vitamin D deficiency, unspecified; T50.995A Adverse effect of other drugs, medicaments and biological substances, initial encounter; N28.1 Cyst of kidney, acquired; Y92.89 Other specified places as the place of occurrence of the external cause; Z95.810 Presence of automatic (implantable) cardiac defibrillator; Z91.51 Personal history of suicidal behavior; Z90.710 Acquired absence of both cervix and uterus; Z87.442 Personal history of urinary calculi; Z83.3 Family history of diabetes mellitus; Z82.49 Family history of ischemic heart disease and other diseases of the circulatory system; Z82.0 Family history of epilepsy and other diseases of the nervous system; Y90.9 Presence of alcohol in blood, level not specified; Z79.899 Other long term (current) drug therapy
CPT/HCPCS: 36415; 71045; 74176; 76700; 76857; 80048; 80053; 80307; 81001; 82306; 82607; 83036; 83605; 83735; 83880; 84443; 84484; 84702; 85025; 85610; 85730; 86850; 86900; 86901; 87426; 87804; 93005; 93306; 96365; 96375; 97116; 97163; 99291; G0378; J1100; J1885; J2003; J2405; J2704

== ENCOUNTER 2025-07-18 09:06 | Inpatient (IN) | payer MEDICAID ==
[2025-07-15 12:30] LABS: Hematocrit 41.3 % (36.0-46.0); Hemoglobin 14.1 g/dL (12.2-16.2); Mean Corpuscular Hemoglobin 33.6 pg (28.0-32.0); Mean Corpuscular Volume 98.1 fL (80.0-100.0); Nucleated Red Blood Cells % 0.1 %
[2025-07-15 12:49] LABS: INR 0.99 (0.9-1.15); Partial Thromboplastin Time 23.9 SEC (24.5-34.5); Prothrombin Time 10.5 sec (9.3-11.8)
[2025-07-15 12:58] LABS: Urine Protein, UAD 1+ (Negative)
[2025-07-15 13:19] LABS: Albumin 4.2 g/dL (3.2-4.8); Alkaline Phosphatase 107 U/L (46-116); Anion Gap 11 (5-15); BUN/Creatinine Ratio 8.7 (10.0-20.0); Bilirubin, Total 0.4 mg/dL (0.2-1.0); Blood Urea Nitrogen 9 mg/dL (9-23); Calcium 9.2 mg/dL (8.7-10.4); Carbon Dioxide 27 mmol/L (20-31); Chloride 101 mmol/L (98-107); Glucose 97 mg/dL (74-106); Sodium 139 mmol/L (136-145); Total Protein 7.6 g/dL (5.7-8.2)
[2025-07-15 13:23] LABS: Alanine Aminotransferase 104 U/L (7-40); Potassium 3.2 mmol/L (3.5-5.1)
[~2025-07-18] VITALS: Ht 165.1 cm; Wt 104.5 kg
[~2025-07-18 09:06] MED LIST changes: -FERR1TAB8 PO; -FURO1TAB31 PO; +HYDROmorphone HCL 2 MG/ML VL/or syr IV PRN; +IBUP1TAB5 PO; +KETOROLAC TROMETH 30 MG/ML 1ML VIAL IV ONE; -LORA-655 PO; +METOCLOPRAMIDE HCL 5MG/ml INJ 2ml VIAL IV PRN; +MORPHINE SULFATE 4 MG/ML SYR/VIAL IV PRN; -POTA-211 PO
[2025-07-18] MEDS ORDERED: MORPHINE SULFATE INJ 2 MG/ml SYRG IV PRN ×2 (09:11→11:45)
[2025-07-18] MEDS ORDERED: LIDOCAINE 1% INJ PF 5ML AMP ONE (09:16)
[2025-07-18] MEDS ORDERED: SODIUM CHLORIDE LOCK 10 ML ONE (09:16)
[2025-07-18] MEDS ORDERED: KETAMINE 50mg/ML 1ml syringe ONE (09:16)
[2025-07-18] MEDS ORDERED: fentaNYL CITRATE 100 MCG/2 ML VL ONE (09:16)
[2025-07-18] MEDS ORDERED: ETOMIDATE (2MG/ML) 20ML VIAL IV ONE (09:16)
[2025-07-18] MEDS ORDERED: MEPERIDINE HCL (25 MG/ML) 1ML VIAL ONE (09:16)
[2025-07-18] MEDS ORDERED: ONDANSETRON HCL 4 MG/2 ML VIAL ONE (09:16)
[2025-07-18] MEDS ORDERED: LIDOCAINE HCL 2% TOP JELLY 5ML TOP ONE (09:16)
[2025-07-18] MEDS ORDERED: ROCURONIUM 10MG/ML 10ML VIAL IV ONE (09:16)
[2025-07-18] MEDS ORDERED: MIDAZOLAM HCL 2MG/2ML 2ml VIAL (1mg/ml) ONE (09:16)
[2025-07-18] MEDS: BUPIVACAINE HCL 0.25% P/F 10 ML VIAL ONE (10:41)
[2025-07-18] MEDS ORDERED: SUGAMMADEX 200mg/2ml Vial (100MG/ML) IV ONE (10:42)
[2025-07-18 10:45] VITALS: PULSE 100; RESP 13; O2SAT 94
[2025-07-18] MEDS ORDERED: D5W/SOD CHL 0.45%/KCL 20MEQ 1,000 ML IV SCH (11:00)
--- NOTE | 2025-07-18 11:09 | DVHOP ---
DATE OF SURGERY: 07/18/2025 PREOPERATIVE DIAGNOSES: Cholelithiasis, chronic cholecystitis. POSTOPERATIVE DIAGNOSES: Cholelithiasis, chronic cholecystitis. SURGEON: Kirit Lopez MD. ROLLWAY WORKER: Blane Coronado NP. ANESTHESIA: General endotracheal. ANESTHESIOLOGIST: Dr. Welsh. ADDITIONAL DIAGNOSES: Morbid obesity, congestive heart failure, coronary artery disease, AICD implantation. DESCRIPTION OF PROCEDURE: Under general endotracheal anesthesia with the patient's skin prepped and draped, a supraumbilical incision was made and Veress needle inserted by the hanging drop technique in order to establish pneumoperitoneum to 15 mmHg pressure by insufflation with carbon dioxide. With the abdomen fully distended, the needle was removed and replaced with a 5 mm trocar port through which a 0-degree viewing laparoscope was inserted and under direct vision, 5 and 10 mm ports inserted through the right anterior axillary line at the level of the umbilicus and through the subxiphoid midline skin respectively. Instrumentation was then introduced and laparoscopy was conducted revealing no obvious unexpected pathology on the serosal surfaces visualized. The gallbladder was completely covered with fat and markedly inflamed with chronic cholecystitis changes. The gallbladder was denuded of surrounding fat and placed on tension. The cystic duct and cystic artery were identified, circumferentially dissected and traced into the hepaticocystic triangle so as to minimize the potential for inadvertent injury to the common bile duct. The cystic duct and cystic artery were then divided between metallic clips far away from the common duct, again attempting to avoid an inadvertent injury to the common bile duct. Following division of the cystic duct and cystic artery between metallic clips, the gallbladder was resected from liver bed by electrocautery and traction. Careful observation of the cardioscope revealed no evidence of influence of the electrocautery on the AICD performance. There were premature atrial contractions visible before the induction of anesthesia, during induction of the anesthesia and throughout the operation; however, the patient maintained her blood pressure without pharmacologic assistance. The patient's fully mobilized gallbladder was placed into a specimen extraction bag and retrieved from the peritoneal cavity through the subxiphoid 10 mm port site. The right upper quadrant was profusely irrigated. Irrigant was aspirated. Hemostasis was meticulously accomplished and found to be complete. At the termination of the procedure, there was no evidence of bleeding from either the liver bed of the gallbladder or from the port sites. Instrumentation was withdrawn. Pneumoperitoneum was evacuated. Fascial defect was closed using #0 Vicryl. Metallic skin maribell used for approximation of skin edges. The patient remained hemodynamically stable throughout the procedure, left the operating room following an accurate needle and sponge counts. Her daughter, Latoya, was thoroughly informed at [phone]. MD JAYSON Buckner/KELLY TID: [id number] RECEIPT: [id number]
[2025-07-18] MEDS ORDERED: NITROGLYCERIN 0.4 MG SL TAB SL PRN (11:45)
--- NOTE | 2025-07-18 11:46 | ECG ---
[facility] Test Date: 2025-07-18 Test Time: 11:38:34 Pat Name: BETY JASON Department: Room: [address] [place] [address] A Gender: F Vacuum Furnace Operator: KARLI CALLE : 1975 Requested By: BLAYNE MCNEIL Order Number: [id number] Reading MD: Diego June Measurements Intervals [place] Rate: 89 P: 78 [place]: 178 QRS: -16 QRSD: 98 T: -15 QT: 414 QTc: 503 Interpretive Statements Sinus rhythm. Premature atrial contractions with aberrantly conducted beats Nonspecific T wave abnormality Prolonged QT Electronically Signed On 07-18-2025 15:31:02 PDT by Diego June Please click the below link to view image of tracing.
--- NOTE | 2025-07-18 11:51 | DVHHP2 ---
Review of Systems Allergies: Coded Allergies: Penicillins (Verified Allergy, Unknown, 08/14/21) Medications Current Medications Medications Dose Ordered Sig/Ilana Route Start Time Stop Time Status Last Admin Dose Admin Morphine Sulfate 2 mg Q4H PRN IV 07/18/25 08:30 07/18/25 12:31 Hydromorphone HCl 1 mg Q3HPRN PRN IV 07/18/25 11:00 Levofloxacin/ Dextrose 100 ml @ 100 mls/hr DAILY IV 07/19/25 10:00 UNV Nitroglycerin 0.4 mg Q5MINP PRN SL 07/18/25 11:45 UNV Morphine Sulfate 2 mg Q30M PRN IV 07/18/25 11:45 UNV Exam Vital Signs Vital Signs Date Time Temp Pulse Resp B/P (MAP) Pulse Ox O2 Delivery O2 Flow Rate FiO2 07/18/25 09:15 97.9 113 20 105/73 (84) 93 97.9 Labs/Xrays Labs Test 07/15/25 11:50 Range/Units White Blood Count 7.1 4.4-10.8 10^3/uL Red Blood Count 4.21 4.0-5.20 10^6/uL Hemoglobin 14.1 12.2-16.2 g/dL Hematocrit 41.3 36.0-46.0 % Mean Corpuscular Volume 98.1 80.0-100.0 fL Mean Corpuscular Hemoglobin 33.6 H 28.0-32.0 pg Mean Corpuscular Hemoglobin Concent 34.2 32.0-36.0 g/dL Red Cell Distribution Width 14.9 H 11.8-14.3 % Platelet Count 337 140-450 10^3/uL Mean Platelet Volume 7.6 6.9-10.8 fL Neutrophils (%) (Auto) 59.2 37.0-80.0 % Lymphocytes (%) (Auto) 25.2 10.0-50.0 % Monocytes (%) (Auto) 9.2 0.0-12.0 % Eosinophils (%) (Auto) 4.8 0.0-7.0 % Basophils (%) (Auto) 1.6 0.0-2.0 % Neutrophils # (Auto) 4.2 1.6-8.6 10 ^3/uL Lymphocytes # (Auto) 1.8 0.4-5.4 10 ^3/uL Monocytes # (Auto) 0.7 0-1.3 10 ^3/uL Eosinophils # (Auto) 0.3 0-0.8 10 ^3/uL Basophils # (Auto) 0.1 0-0.2 10 ^3/uL Nucleated Red Blood Cells 0.1 % Prothrombin Time 10.5 9.3-11.8 sec Prothrombin Time INR 0.99 0.9-1.15 Activated Partial Thromboplast Time 23.9 L 24.5-34.5 SEC Urine Color Yellow Yellow Urine Clarity Turbid H Clear Urine pH 5.5 5.0-9.0 Urine Specific [place] 1.013 1.001-1.035 Urine Protein 1+ H Negative Urine Ketones Negative Negative Urine Blood Trace H Negative /uL Urine Nitrite Negative Negative Urine Bilirubin Negative Negative Urine Urobilinogen Normal Negative mg/dL Urine Leukocyte Esterase 3+ Negative /uL Urine RBC 3 0 - 4 /hpf Urine Microscopic WBC 88 H 0-5 /HPF Urine Squamous Epithelial Cells Few <5 /hpf Urine Bacteria None seen None Seen /hpf Urine Glucose Normal Normal mg/dL Sodium Level 139 136-145 mmol/L Potassium Level 3.2 L 3.5-5.1 mmol/L Chloride Level 101 98-107 mmol/L Carbon Dioxide Level 27 20-31 mmol/L Anion Gap 11 5-15 Blood Urea Nitrogen 9 9-23 mg/dL Creatinine 1.03 H 0.550-1.02 mg/dL Glomerular Filtration Rate Calc 67 >90 mL/min BUN/Creatinine Ratio 8.7 L 10.0-20.0 Serum Glucose 97 74-106 mg/dL Calcium Level 9.2 8.7-10.4 mg/dL Total Bilirubin 0.4 0.2-1.0 mg/dL Aspartate Amino Transferase (AST) 158 H 13-40 U/L Alanine Aminotransferase (ALT) 104 H 7-40 U/L Alkaline Phosphatase 107 46-116 U/L Total Protein 7.6 5.7-8.2 g/dL Albumin 4.2 3.2-4.8 g/dL SEPSIS Sepsis Screen Physician Orders Oxygen By Face Mask (07/18/25 08:19) Swabber (07/18/25 08:19) Notify Anesth. For Changes: (07/18/25 08:19) Pulse Ox Assessment (07/18/25 08:19) Bear Hugger For Temp <94.5f (07/18/25 08:19) May Have Head Of Bed Up (07/18/25 08:19) Follow Iv With Surgeon Orders (07/18/25 08:19) Discharge To Room Per Criteria (07/18/25 08:19) Morphine Sulfate Injection (07/18/25 08:30) Sugammadex ([place]) (07/18/25 10:42) To Pacu For Recovery (07/18/25 10:53) Oxygen Via Cool Mist Mask (07/18/25 10:53) Incentive Spirometry Q 1hr (07/18/25 10:53) Bilirubin, Total (07/19/25 04:00) Clear Liq Diet (07/18/25 Lunch) Condominium Association Manager (07/18/25 10:53) * Cardiology Consult (07/18/25 10:53) Page Hospitalist For Admission (07/18/25 10:53) Call/Page Hospitalist/Atten Fo (07/18/25 10:53) Hydromorphone Injection (Dilaudid Inject (07/18/25 11:00) Levofloxacin 500mg (Levaquin 500mg/ 100m (07/19/25 10:00) Admit (07/18/25 11:34) Oxygen By Nasal Cannula (07/18/25 11:34) Nitroglycerin Sublingual (Ntrostat Subli (07/18/25 11:45) Morphine Sulfate Injection (07/18/25 11:45) Stat Ekg For Chest Pain (07/18/25 11:34) Notify Md Of Changes From Base (07/18/25 11:34) Condominium Association Manager For 24 Hours (07/18/25 11:34) Emergency Dysrhythmia Protocol (07/18/25 11:34) Rhythm Strips Once Every Shift (07/18/25 11:34) Basic Metabolic Panel (07/18/25 11:44) Magnesium (07/18/25 11:44) Complete Blood Count (07/19/25 06:00) Comprehensive Metabolic Panel (07/19/25 06:00) Magnesium (07/19/25 05:00) Chest Portable (07/19/25 06:00) Vital Signs Date Time Temp Pulse Resp B/P (MAP) Pulse Ox O2 Delivery O2 Flow Rate FiO2 07/18/25 09:15 97.9 113 20 105/73 (84 93 97.9 Assessment/Plan Assessment/Plan SEE DICTATED NOTE Plan discussed with: Patient My Orders Orders - JULIANA PATEL MD Procedure Category Date Status Time Admit ADMIT 07/18/25 Transmitted 11:34 Oxygen By Nasal RT 07/18/25 Transmitted Cannula 11:34 Nitroglycerin PHA 07/18/25 Logged Sublingual (Ntrostat 11:45 Morphine Sulfate PHA 07/18/25 Logged Injection 11:45 Stat Ekg For Chest [facility] 07/18/25 In Process Pain 11:34 Notify Md Of Changes [facility] 07/18/25 In Process From Base 11:34 Condominium Association Manager For [facility] 07/18/25 In Process 24 Hours 11:34 Emergency Dysrhythmia [facility] 07/18/25 In Process Protocol 11:34 Rhythm Strips Once [facility] 07/18/25 In Process Every Shift 11:34 Basic Metabolic Panel LAB 07/18/25 Logged 11:44 Magnesium LAB 07/18/25 Logged 11:44 Complete Blood Count LAB 07/19/25 Verified 06:00 Comprehensive LAB 07/19/25 Verified Metabolic Panel 06:00 Magnesium LAB 07/19/25 Verified 05:00 Chest Portable XY 07/19/25 Logged 06:00 Date of Service: Jul 18, 2025 Billing Provider: JULIANA PATEL MD Common Visit Codes: [id number] INP/OBS CARE (HIGH) JULIANA PATEL MD Jul 18, 2025 11:51
[2025-07-18] MEDS: LIDOCAINE W/ EPINEPHRINE 1% 20ML VIAL ONE (11:58)
[2025-07-18] MEDS: LIDOCAINE 4MG/ML IV SOLN 500 ML IV ONE (11:59)
[2025-07-18] MEDS: POVIDONE IODINE 10 % TOPICAL OINT 30GM TOP ONE (12:00)
[2025-07-18] MEDS ORDERED: ACETAMINOPHEN 325 MG TAB PO PRN (12:00)
--- NOTE | 2025-07-18 12:05 | DVHHP ---
ADMIT DATE: 07/18/2025 HISTORY OF PRESENT ILLNESS: The patient is a 49-year-old lady who is admitted after she underwent laparoscopic cholecystectomy for cholelithiasis and chronic cholecystitis. The patient at this time denies any significant pain. No chest pain. No shortness of breath. No nausea or vomiting. REVIEW OF SYSTEMS: Review of rest of systems is otherwise currently negative. PAST MEDICAL HISTORY: Significant for chronic systolic heart failure, status post AICD placement, also has history of hypertension, dilated cardiomyopathy, likely drug-induced, as well as renal stones. MEDICATIONS: Include Coreg, Lipitor, Lasix, lisinopril, mesalamine, potassium, Ranexa, and Entresto. ALLERGIES: PENICILLIN. SOCIAL HISTORY: Occasional smoking, denies drug use at the current time, lives at home with her son. FAMILY HISTORY: Negative. PHYSICAL EXAMINATION: GENERAL: The patient is awake, alert. VITAL SIGNS: Temperature of 97.9, pulse 110 per minute, blood pressure 105/73. SHEENT: Unremarkable. NECK: There is no JVD. No pedal edema. LUNGS: Equal bilaterally. No added sounds. CARDIOVASCULAR SYSTEM: S1 and S2 are regular. ABDOMEN: Soft. There is no organomegaly. Bowel sounds are hypoactive. NEUROLOGIC: Nonfocal. MUSCULOSKELETAL: Normal. ASSESSMENT AND PLAN: * Chronic systolic heart failure for which the patient will continue on home medications and fluids will be restricted. * Hypertension. * History of renal stones. * UTI for which a urine culture will be obtained and she will be placed on IV Rocephin. * Morbid obesity. * Laparoscopic cholecystectomy for cholelithiasis and chronic cholecystitis for which she will be placed on a clear liquid diet and pain medications. MD FILEMON Varner/AMANDA TID: [id number] RECEIPT: [id number]
[2025-07-18] MEDS ORDERED: HYDROmorphone HCL 2 MG/ML VL/or syr IV PRN ×2 (12:30→15:30)
[2025-07-18] MEDS ORDERED: METOCLOPRAMIDE HCL 5MG/ml INJ 2ml VIAL IV PRN (12:30)
[2025-07-18] MEDS: HYDROmorphone HCL 2 MG/ML VL/or syr IV PRN ×2 (12:31→20:32)
[2025-07-18] MEDS: HYDROmorphone HCL 2 MG/ML VL/or syr IV ONE ×2 (14:51→15:10)
[2025-07-18] MEDS: MESALAMINE 400mg Delayed Release Cap PO SCH (15:36)
[2025-07-18 17:03] VITALS: BP 103/71; PULSE 75; RESP 20; TEMP 97.3; O2SAT 96
[2025-07-18 17:18] VITALS: BP 103/71; PULSE 75; RESP 20; TEMP 97.3; O2SAT 96
[2025-07-18 18:03] LABS: Chloride 99 mmol/L (98-107); Potassium 3.8 mmol/L (3.5-5.1); Sodium 139 mmol/L (136-145)
[2025-07-18 18:04] LABS: Anion Gap 10 (5-15); Calcium 8.8 mg/dL (8.7-10.4); Carbon Dioxide 30 mmol/L (20-31)
[2025-07-18 18:09] LABS: BUN/Creatinine Ratio 17.6 (10.0-20.0); Glucose 75 mg/dL (74-106)
[2025-07-18 18:21] LABS: Blood Urea Nitrogen 24 mg/dL (9-23); Magnesium 1.3 mg/dL (1.6-2.6)
[2025-07-18 20:00] VITALS: PULSE 79; PULSE 80; RESP 20; O2SAT 96
--- NOTE | 2025-07-18 20:18 | DVHINCON2 ---
Date of service: Jul 18, 2025 Referring Physician John Reason for Consultation PACS during procedure History of Present Illness This is a 49-year-old female with a PMH of chronic systolic heart failure, status post AICD placement, hypertension, dilated cardiomyopathy, likely drug- induced and renal stones who was admitted s/p laparoscopic cholecystectomy for cholelithiasis and chronic cholecystitis. Patient developed PACS during procedure and therefore I am asked to consult on this patient. Family History: Alcoholism Diabetes mellitus G8 MOTHER G8 FATHER FH: Parkinson's disease G8 MOTHER FH: thyroid disease G8 MOTHER Hypertension G8 FATHER Allergies: Coded Allergies: Penicillins (Verified Allergy, Unknown, 08/14/21) Home Meds Active Scripts Ibuprofen Micronized (Ibuprofen) 600 Mg Tab, 600 MG PO Q6HPRN PRN for 7 Days, #28 TAB Prov:ANISH WOOD RESIDENT 03/12/25 Ranolazine (Ranexa) 500 Mg Tab, 500 MG PO BID for 60 Days, #120 TAB Prov:ZOEY THACKER SENIOR TECHNICAL MANAGER 10/08/22 Reported Medications Ferrous Sulfate (Ferrous Sulfate) 325 Mg Tab, 1 TAB PO TID for 30 Days, #90 03/08/25 Potassium Chloride (Potassium Chloride ER) 10 Meq Tab, 1 TAB PO TID for 90 Days, #270 03/08/25 Aspirin (Aspirin Low Dose) 81 Mg Tab, 1 TAB PO DAILY for 90 Days, #90 03/08/25 Senna (Senna-Time) 8.6 Mg Tab, 2 TAB PO QHSP for 90 Days, #180 03/08/25 Furosemide (Furosemide) 40 Mg Tab, 1 TAB PO BID for 90 Days, #180 03/08/25 Mesalamine (Mesalamine Dr) 800 Mg Tab, 1 TAB PO TID for 30 Days, #90 03/08/25 Sacubitril-Valsartan (Entresto 24-26 mg) 1 Tab Tab, 1 TAB PO BID 10/06/22 Carvedilol (Carvedilol) 6.25 Mg Tab, 6.25 MG PO BID for 30 Days, MG 08/15/21 Lisinopril (Lisinopril) 5 Mg Tab, 5 MG PO DAILY for 30 Days, MG 08/15/21 Atorvastatin Calcium (ATORVASTATIN CALCIUM) 20 Mg Tab, 1 TAB PO HS, #30 TAB 5 Refills 08/15/21 Current Medications Current Medications Medications (Trade) Dose Ordered Sig/Ilana Route PRN Reason Start Time Stop Time Status Last Admin Metoclopramide HCl (Reglan Injection) 10 mg ONCE PRN IV NAUSEA / VOMITING 07/18/25 08:30 07/18/25 08:31 Cancel Hydromorphone HCl (Dilaudid Injection) 0.5 mg Q10M PRN IV SEVERE PAIN (7-10 PAIN SCALE) 07/18/25 08:30 07/18/25 09:11 DC Morphine Sulfate 2 mg Q4H PRN IV BREAKTHRU PAIN SCALE 7-10 07/18/25 08:30 07/18/25 12:31 DC Hydromorphone HCl (Dilaudid Injection) 0.25 mg Q10M PRN IV MODERATE PAIN (4-6 PAIN SCALE) 07/18/25 08:30 07/18/25 09:01 DC Morphine Sulfate 1 mg Q30M PRN IV SEVERE PAIN (7-10 PAIN SCALE) 07/18/25 09:11 07/18/25 11:12 DC Potassium Chloride/Dextrose/ Sod Cl 1,000 ml @ 100 mls/hr Q10H IV 07/18/25 11:00 07/18/25 11:47 DC Hydromorphone HCl (Dilaudid Injection) 1 mg Q3HPRN PRN IV SEVERE PAIN (7-10 PAIN SCALE) 07/18/25 11:00 Levofloxacin/ Dextrose 100 ml @ 100 mls/hr DAILY IV 07/19/25 10:00 Cancel Nitroglycerin (Ntrostat Sublingual) 0.4 mg Q5MINP PRN SL FOR CHEST PAIN 07/18/25 11:45 Morphine Sulfate 2 mg Q30M PRN IV FOR CHEST PAIN 07/18/25 11:45 Carvedilol (Coreg Tablet) 3.125 mg Q12HR PO 07/18/25 22:00 Furosemide (Lasix Tablet) 40 mg DAILY PO 07/19/25 10:00 Potassium Chloride (Klor-Con Tablet) 20 meq DAILY PO 07/19/25 10:00 Mesalamine (DELZICOL Delayed Release Capsule) 800 mg TID PO 07/18/25 14:00 07/18/25 15:36 Acetaminophen/ Hydrocodone Bitart (Mcalister 5/325MG Tab) 1 tab Q6HPRN PRN PO MODERATE PAIN (4-6 PAIN SCALE) 07/18/25 12:00 Ranolazine (Ranexa ER) 500 mg BID PO 07/18/25 22:00 Lisinopril (Zestril Tablet) 5 mg DAILY PO 07/19/25 10:00 Acetaminophen (Tylenol Tablet) 650 mg Q6HP PRN PO MILD PAIN (1-3 PAIN SCALE) 07/18/25 12:00 Ceftriaxone Sodium 50 ml @ 100 mls/hr DAILY@09 IV 07/19/25 09:00 Metoclopramide HCl (Reglan Injection) 10 mg ONCE PRN IV NAUSEA / VOMITING 07/18/25 12:30 07/18/25 12:31 Cancel Hydromorphone HCl (Dilaudid Injection) 0.5 mg Q10M PRN IV SEVERE PAIN (7-10 PAIN SCALE) 07/18/25 12:30 07/18/25 12:31 DC 07/18/25 12:31 Hydromorphone HCl (Dilaudid Injection) 0.25 mg Q10M PRN IV MODERATE PAIN (4-6 PAIN SCALE) 07/18/25 12:30 07/18/25 12:24 DC Hydromorphone HCl (Dilaudid Injection) 0.25 mg Q15M PRN IV MODERATE PAIN (4-6 PAIN SCALE) 07/18/25 15:30 07/18/25 16:16 DC Review of Systems Review of rest of systems is otherwise currently negative. Vital Signs Vital Signs Date Time Temp Pulse Resp B/P (MAP) Pulse Ox O2 Delivery O2 Flow Rate FiO2 07/18/25 17:18 75 20 96 Room Air* 0 21 07/18/25 17:18 97.3 103/71 (82) 97.3 Physical Exam GENERAL: Alert and oriented x 3. No acute distress. Morbid obesity. EYES: PERRL, EOMI. Anicteric. HENT: Moist mucous membranes. LUNGS: Clear to auscultation bilaterally. CARDIOVASCULAR: Regular rate and rhythm. ABDOMEN: Soft, non-tender and non-distended. EXTREMITIES: No edema. NEUROLOGIC: No focal neurological deficits. SKIN: Warm, dry. Labs/Diagnostic Data Labs Test 07/18/25 17:36 07/15/25 11:50 Range/Units Sodium Level 139 136-145 mmol/L Potassium Level 3.8 3.5-5.1 mmol/L Chloride Level 99 98-107 mmol/L Carbon Dioxide Level 30 20-31 mmol/L Anion Gap 10 5-15 Blood Urea Nitrogen 24 H 9-23 mg/dL Creatinine 1.36 #H 0.550-1.02 mg/dL Glomerular Filtration Rate Calc 48 >90 mL/min BUN/Creatinine Ratio 17.6 10.0-20.0 Serum Glucose 75 74-106 mg/dL Calcium Level 8.8 8.7-10.4 mg/dL Magnesium Level 1.3 L 1.6-2.6 mg/dL White Blood Count 7.1 4.4-10.8 10^3/uL Red Blood Count 4.21 4.0-5.20 10^6/uL Hemoglobin 14.1 12.2-16.2 g/dL Hematocrit 41.3 36.0-46.0 % Mean Corpuscular Volume 98.1 80.0-100.0 fL Mean Corpuscular Hemoglobin 33.6 H 28.0-32.0 pg Mean Corpuscular Hemoglobin Concent 34.2 32.0-36.0 g/dL Red Cell Distribution Width 14.9 H 11.8-14.3 % Platelet Count 337 140-450 10^3/uL Mean Platelet Volume 7.6 6.9-10.8 fL Neutrophils (%) (Auto) 59.2 37.0-80.0 % Lymphocytes (%) (Auto) 25.2 10.0-50.0 % Monocytes (%) (Auto) 9.2 0.0-12.0 % Eosinophils (%) (Auto) 4.8 0.0-7.0 % Basophils (%) (Auto) 1.6 0.0-2.0 % Neutrophils # (Auto) 4.2 1.6-8.6 10 ^3/uL Lymphocytes # (Auto) 1.8 0.4-5.4 10 ^3/uL Monocytes # (Auto) 0.7 0-1.3 10 ^3/uL Eosinophils # (Auto) 0.3 0-0.8 10 ^3/uL Basophils # (Auto) 0.1 0-0.2 10 ^3/uL Nucleated Red Blood Cells 0.1 % Prothrombin Time 10.5 9.3-11.8 sec Prothrombin Time INR 0.99 0.9-1.15 Activated Partial Thromboplast Time 23.9 L 24.5-34.5 SEC Urine Color Yellow Yellow Urine Clarity Turbid H Clear Urine pH 5.5 5.0-9.0 Urine Specific [place] 1.013 1.001-1.035 Urine Protein 1+ H Negative Urine Ketones Negative Negative Urine Blood Trace H Negative /uL Urine Nitrite Negative Negative Urine Bilirubin Negative Negative Urine Urobilinogen Normal Negative mg/dL Urine Leukocyte Esterase 3+ Negative /uL Urine RBC 3 0 - 4 /hpf Urine Microscopic WBC 88 H 0-5 /HPF Urine Squamous Epithelial Cells Few <5 /hpf Urine Bacteria None seen None Seen /hpf Urine Glucose Normal Normal mg/dL Total Bilirubin 0.4 0.2-1.0 mg/dL Aspartate Amino Transferase (AST) 158 H 13-40 U/L Alanine Aminotransferase (ALT) 104 H 7-40 U/L Alkaline Phosphatase 107 46-116 U/L Total Protein 7.6 5.7-8.2 g/dL Albumin 4.2 3.2-4.8 g/dL Assessment Cholelithiasis. Chronic cholecystitis. S/P laparoscopic cholecystectomy. Chronic systolic heart failure. Hypertension. History of renal stones. UTI. Morbid obesity. Plan/Recommendation I agree with your ongoing assessment and care of plan. Dilaudid and Mcalister for pain managment. Coreg. IV antibiotics as ordered. Diuretics with Lasix. Lisinopril. Nitro SL. Additional plan as per the hospital course. A total of 45 minutes was spent reviewing the patient record, examining the patient, making a diagnostic and therapeutic plan, discussing this plan with medical personnel, following up on diagnostic studies and following the patient for clinical stability excluding any and all procedures. At least 50% of this time was spent in direct, [id number] contact. Plan discussed with: Patient STEPHANY GOTTI MD Jul 18, 2025 20:18
[2025-07-18 21:00] VITALS: BP 105/71; PULSE 79; RESP 20; TEMP 96.9; O2SAT 96
[2025-07-18] MEDS: CARVEDILOL 3.125 MG TAB PO SCH (22:00)
[2025-07-18] MEDS: HYDROcodone-ACET 5/325MG TAB PO PRN (22:35)
[2025-07-18] MEDS: RANOLAZINE ER 500 MG TAB PO SCH (22:35)
[2025-07-19] VITALS (8 sets, daily range): BP systolic 98–132; BP diastolic 59–88; PULSE 73–87; RESP 18–20; TEMP 97.3–98.4; O2SAT 95–99
--- NOTE | 2025-07-19 05:29 | DVH ---
CHEST RADIOGRAPH Indication: CHF Technique: 1 view Comparison: XY CHEST PORTABLE on DOS: 03/07/25, XY CHEST PORTABLE on DOS: 06/16/24, XY CHEST PORTABLE o n DOS: 03/10/23 FINDINGS: Lines and Tubes: Unchanged left implanted cardiac device positioning. Lungs/Pleura: Similar interstitial opacities likely representing cardiogenic edema. No focal consolid ation, pleural effusion or pneumothorax. Cardiomediastinum: Unremarkable. Other: No acute osseous abnormality. IMPRESSION: 1. No acute cardiopulmonary abnormality or significant change from 4 days prior.
[2025-07-19 06:27] LABS: Hematocrit 37.2 % (36.0-46.0); Hemoglobin 12.6 g/dL (12.2-16.2); Mean Corpuscular Hemoglobin 33.9 pg (28.0-32.0); Mean Corpuscular Volume 100.0 fL (80.0-100.0); Nucleated Red Blood Cells % 0.1 %
[2025-07-19 06:50] LABS: Albumin 3.6 g/dL (3.2-4.8); Alkaline Phosphatase 80 U/L (46-116); Anion Gap 11 (5-15); BUN/Creatinine Ratio 15.0 (10.0-20.0); Bilirubin, Total 1.0 mg/dL (0.2-1.0); Blood Urea Nitrogen 17 mg/dL (9-23); Carbon Dioxide 28 mmol/L (20-31); Chloride 99 mmol/L (98-107); Sodium 138 mmol/L (136-145); Total Protein 6.6 g/dL (5.7-8.2)
[2025-07-19 06:53] LABS: Alanine Aminotransferase 74 U/L (7-40); Calcium 8.3 mg/dL (8.7-10.4); Glucose 72 mg/dL (74-106); Magnesium 1.4 mg/dL (1.6-2.6); Potassium 3.2 mmol/L (3.5-5.1)
[2025-07-19] MEDS: POTASSIUM CHL 20 Meq TABLET PO SCH (09:42)
[2025-07-19] MEDS: FUROSEMIDE 40 MG TAB PO SCH (09:43)
[2025-07-19] MEDS: LISINOPRIL 5 MG TAB PO SCH (09:46)
--- NOTE | 2025-07-19 10:23 | DVHPN2 ---
Progress Note Date Seen: Jul 19, 2025 Medical Necessity Reason Pt with a Central, PICC or Fol: No Subjective Patient reports: No new complaints Review of Systems: HEENT:Normal, CVS:Normal, RESPIRATORY:Normal, GI:Normal, :Normal, MSK:Normal, NEURO:Normal Objective vital signs Vital Sign Date Time Temp Pulse Resp B/P (MAP) Pulse Ox O2 Delivery O2 Flow Rate FiO2 07/19/25 09:46 109/64 07/19/25 09:45 78 07/19/25 08:59 97.7 18 97 97.7 07/19/25 08:00 Nasal Cannula* 2 28 Total Intake and Output 07/18/25 07/18/25 07/19/25 15:00 23:00 07:00 Intake Total 100 ml 200 ml 1170 ml Balance 100 ml 200 ml 1170 ml medications Current Medications Medications Dose Ordered Sig/Ilana Route Start Time Stop Time Status Last Admin Dose Admin Metoclopramide HCl 10 mg ONCE PRN IV 07/18/25 08:30 07/18/25 08:31 Cancel Hydromorphone HCl 1 mg Q3HPRN PRN IV 07/18/25 11:00 07/19/25 05:24 1 MG Levofloxacin/ Dextrose 100 ml @ 100 mls/hr DAILY IV 07/19/25 10:00 Cancel Nitroglycerin 0.4 mg Q5MINP PRN SL 07/18/25 11:45 Morphine Sulfate 2 mg Q30M PRN IV 07/18/25 11:45 Carvedilol 3.125 mg Q12HR PO 07/18/25 22:00 07/19/25 09:45 3.125 MG Furosemide 40 mg DAILY PO 07/19/25 10:00 07/19/25 09:43 40 MG Potassium Chloride 20 meq DAILY PO 07/19/25 10:00 07/19/25 09:42 20 MEQ Mesalamine 800 mg TID PO 07/18/25 14:00 07/19/25 05:16 800 MG Acetaminophen/ Hydrocodone Bitart 1 tab Q6HPRN PRN PO 07/18/25 12:00 07/19/25 09:45 1 TAB Ranolazine 500 mg BID PO 07/18/25 22:00 07/19/25 09:43 500 MG Lisinopril 5 mg DAILY PO 07/19/25 10:00 Acetaminophen 650 mg Q6HP PRN PO 07/18/25 12:00 Ceftriaxone Sodium 50 ml @ 100 mls/hr DAILY@09 IV 07/19/25 09:00 07/19/25 09:42 100 MLS/HR Metoclopramide HCl 10 mg ONCE PRN IV 07/18/25 12:30 07/18/25 12:31 Cancel Examination: GENERAL:Normal, HEENT:Normal, NECK:Normal, LUNGS:Normal, LUNGS:Abnormal (on oxygen), CVS:Normal, ABDOMEN:Normal, MSK:Normal, SKIN:Normal, NEURO:Normal, :Normal laboratory and microbiology Laboratory Tests 07/19/25 04:48 Test 07/19/25 04:48 Range/Units Serum Glucose 72 L 74-106 mg/dL Problem List/Assessment/Plan Problem List/Assessment/Plan * Chronic systolic heart failure for which the patient will continue on home medications and fluids will be restricted. * chronic resp failure * Hypertension. * History of renal stones. * UTI for which a urine culture will be obtained and she will be placed on IV Rocephin. * Morbid obesity. * Laparoscopic cholecystectomy for cholelithiasis and chronic cholecystitis for which she will be placed on a full liquid diet and pain medications. advance care planning- full code- time spent 18mins Plan discussed with: Patient My Orders My Orders Orders - JULIANA PATEL MD Procedure Category Date Status Time Admit ADMIT 07/18/25 Transmitted 11:34 Oxygen By Nasal RT 07/18/25 Transmitted Cannula 11:34 Nitroglycerin PHA 07/18/25 In Process Sublingual (Ntrostat 11:45 Morphine Sulfate PHA 07/18/25 In Process Injection 11:45 Stat Ekg For Chest THEERSA 07/18/25 In Process Pain 11:34 Notify Md Of Changes THERESA 07/18/25 In Process From Base 11:34 Cigarette Making Examiner For THERESA 07/18/25 In Process 24 Hours 11:34 Emergency Dysrhythmia THERESA 07/18/25 In Process Protocol 11:34 Rhythm Strips Once [facility] 07/18/25 In Process Every Shift 11:34 Chest Portable XY 07/19/25 Resulted 06:00 Carvedilol Tablet PHA 07/18/25 In Process (Coreg Tablet) 22:00 Furosemide Tablet PHA 07/19/25 In Process (Lasix Tablet) 10:00 Potassium Er Tablet PHA 07/19/25 In Process (Klor-Con Tablet) 10:[address] Capsule PHA 07/18/25 In Process (Delzicol Delayed 14:00 Hydrocodone-Acet PHA 07/18/25 In Process 5/325mg Tab ([place] 12:00 Ranolazine (Ranexa Er) PHA 07/18/25 In Process 22:00 Lisinopril Tablet PHA 07/19/25 In Process (Zestril Tablet) 10:00 Acetaminophen Tablet PHA 07/18/25 In Process (Tylenol Tablet) 12:00 Urinalysis LAB 07/18/25 Uncollected 11:50 Urine Bacterial SHADY 07/18/25 Logged Culture 11:50 Ceftriaxone 1gm/50ml PHA 07/19/25 In Process (Rocephin) 09:00 Full Liq Diet DIET 07/19/25 Transmitted Lunch Potassium Er Tablet PHA 07/19/25 Transmitted (Klor-Con Tablet) 10:30 Comprehensive LAB 07/20/25 Verified Metabolic Panel 06:00 Magnesium LAB 07/20/25 Verified 05:00 Magnesium Roman PHA 07/19/25 Transmitted 11:00 Date of Service: Jul 19, 2025 Billing Provider: JULIANA PATEL MD Common Visit Codes: [id number] INP/OBS CARE(HIGH) Secondary Visit Codes: [id number] CARE PLAN 30 MINUTES JULIANA PATEL MD Jul 19, 2025 10:23
--- NOTE | 2025-07-19 10:55 | CONS ---
Pharmacy Clinical Information: CHF FALL OUT From Heart Failure Fallout Report on CQM Application, Maya Islas is a 49-year-old female admitted s/p laparoscopic cholecystectomy for cholithiasis and chronic cholecystitis. PMH is known to be chronic systolic heart failure s/p AICD placement, hypertension, dilated cardiomyopathy (likely drug induced), and renal stones. Home medications for heart failure include lisinopril, carvedilol, atorvastatin, and furosemide. Inpatient medications include lisinopril, carvedilol, and furosemide. SGLT2i not indicated at this time due to patient experiencing UTI. Patient K is 3.2, weight adjusted CrCl 73.1, and BP 109/64 (109-129/45-77 range within last 24 hours). May consider adding spironolactone for HF GDMT if/when clinically appropriate. MANJIT ACUNA [facility] RESIDENT Jul 19, 2025 10:55
--- NOTE | 2025-07-19 10:56 | ECG ---
[facility] Test Date: 2025-07-18 Test Time: 11:39:34 Pat Name: BETY JASON Department: Room: 0249T Gender: F Roadmaster: KARLI CALLE : 1975 Requested By: PACO BOYD Order Number: [id number] Reading MD: Diego June Measurements Intervals [place] Rate: 92 P: 73 MI: 162 QRS: -10 QRSD: 92 T: 82 QT: 410 QTc: 507 Interpretive Statements Sinus rhythm with frequent premature ventricular complexes in a pattern of bigeminy Nonspecific T wave abnormality Prolonged QT Electronically Signed On 07-26-2025 12:47:13 PST by Diego June Please click the below link to view image of tracing.
[2025-07-19] MEDS: MAGNESIUM SULFATE 1GM/100ML 100 ML IV SCH (11:24)
[2025-07-19] MEDS: POTASSIUM CHL 20 Meq TABLET PO ONE (11:24)
[2025-07-19 13:19] LABS: Urine Budding Yeast OCCASIONAL /hpf (None Seen); Urine Protein, UAD Negative (Negative); Urine WBC Clumps PRESENT /hpf (None Seen)
--- NOTE | 2025-07-19 23:41 | DVHPN2 ---
Progress Note - Dictate Date Seen: Jul 19, 2025 Medical Necessity Reason Pt with a Central, PICC or Fol: No Subjective Patient was seen and evaluated in follow up. Patient is complaining of abdominal pain at the surgical site. K 3.2, SLEEP MEDICINE PHYSICIAN 1.13, CA 8.3, AST 133, ALT 74. Chest x-ray shows no acute cardiopulmonary abnormality or significant change from 4 days prior. Telemetry reviewed. vital signs Vital Sign Date Time Temp Pulse Resp B/P (MAP) Pulse Ox O2 Delivery O2 Flow Rate FiO2 07/19/25 13:12 98.4 74 18 116/83 (94) 95 98.4 07/19/25 08:00 Nasal Cannula* 2 28 Total Intake and Output 07/18/25 07/18/25 07/19/25 15:00 23:00 07:00 Intake Total 100 ml 200 ml 1170 ml Balance 100 ml 200 ml 1170 ml medications Current Medications Medications Dose Ordered Sig/Ilana Route Start Time Stop Time Status Last Admin Dose Admin Metoclopramide HCl 10 mg ONCE PRN IV 07/18/25 08:30 07/18/25 08:31 Cancel Hydromorphone HCl 1 mg Q3HPRN PRN IV 07/18/25 11:00 07/19/25 05:24 1 MG Levofloxacin/ Dextrose 100 ml @ 100 mls/hr DAILY IV 07/19/25 10:00 Cancel Nitroglycerin 0.4 mg Q5MINP PRN SL 07/18/25 11:45 Morphine Sulfate 2 mg Q30M PRN IV 07/18/25 11:45 Carvedilol 3.125 mg Q12HR PO 07/18/25 22:00 07/19/25 09:45 3.125 MG Furosemide 40 mg DAILY PO 07/19/25 10:00 07/19/25 09:43 40 MG Potassium Chloride 20 meq DAILY PO 07/19/25 10:00 07/19/25 09:42 20 MEQ Mesalamine 800 mg TID PO 07/18/25 14:00 07/19/25 13:36 800 MG Acetaminophen/ Hydrocodone Bitart 1 tab Q6HPRN PRN PO 07/18/25 12:00 07/19/25 09:45 1 TAB Ranolazine 500 mg BID PO 07/18/25 22:00 07/19/25 09:43 500 MG Lisinopril 5 mg DAILY PO 07/19/25 10:00 Acetaminophen 650 mg Q6HP PRN PO 07/18/25 12:00 Ceftriaxone Sodium 50 ml @ 100 mls/hr DAILY@09 IV 07/19/25 09:00 07/19/25 09:42 100 MLS/HR Metoclopramide HCl 10 mg ONCE PRN IV 07/18/25 12:30 07/18/25 12:31 Cancel objective GENERAL: Alert and oriented x 3. No acute distress. Morbid obesity. EYES: PERRL, EOMI. Anicteric. HENT: Moist mucous membranes. LUNGS: Clear to auscultation bilaterally. CARDIOVASCULAR: Regular rate and rhythm. ABDOMEN: Soft, non-tender and non-distended. EXTREMITIES: No edema. NEUROLOGIC: No focal neurological deficits. SKIN: Warm, dry. laboratory and microbiology Laboratory Tests 07/19/25 04:48 Test 07/19/25 04:48 Range/Units Serum Glucose 72 L 74-106 mg/dL Problem List Cholelithiasis. Chronic cholecystitis. S/P laparoscopic cholecystectomy. Chronic systolic heart failure. Hypertension. History of renal stones. UTI. Morbid obesity. Assessment/Plan Continued all current supportive medical care. Dilaudid and [place] for pain management. Coreg. IV antibiotics as ordered. Diuretics with Lasix. Nitro SL. Additional plan as per the hospital course. Plan discussed with: STEPHANY Cuellar MD Jul 19, 2025 15:13
[2025-07-20 01:00] VITALS: BP 105/75; PULSE 74; RESP 18; TEMP 95.8; O2SAT 94
[2025-07-20 05:00] VITALS: BP 105/82; PULSE 86; RESP 18; TEMP 97.3; O2SAT 95
[2025-07-20 06:49] LABS: Albumin 3.7 g/dL (3.2-4.8); Alkaline Phosphatase 92 U/L (46-116); Anion Gap 7 (5-15); BUN/Creatinine Ratio 9.1 (10.0-20.0); Blood Urea Nitrogen 9 mg/dL (9-23); Calcium 9.0 mg/dL (8.7-10.4); Carbon Dioxide 29 mmol/L (20-31); Chloride 101 mmol/L (98-107); Glucose 94 mg/dL (74-106); Magnesium 1.9 mg/dL (1.6-2.6); Potassium 3.9 mmol/L (3.5-5.1); Sodium 137 mmol/L (136-145); Total Protein 7.2 g/dL (5.7-8.2)
[2025-07-20 06:50] LABS: Bilirubin, Total 0.7 mg/dL (0.2-1.0)
[2025-07-20 06:52] LABS: Alanine Aminotransferase 93 U/L (7-40)
[2025-07-20 08:00] VITALS: PULSE 85
[2025-07-20 08:42] VITALS: BP 119/86; PULSE 68; RESP 17; TEMP 97.9; O2SAT 97
--- NOTE | 2025-07-20 10:28 | DVHDS2 ---
Discharge Summary Date of Admission Jul 18, 2025 at 11:34 Date of Discharge: Jul 20, 2025 Labs/Diagnostic Data: Laboratory Results Test 07/20/25 05:41 07/19/25 13:04 07/19/25 04:48 07/15/25 11:50 Sodium Level 137 mmol/L (136-145) Potassium Level 3.9 mmol/L (3.5-5.1) Chloride Level 101 mmol/L (98-107) Carbon Dioxide Level 29 mmol/L (20-31) Anion Gap 7 (5-15) Blood Urea Nitrogen 9 mg/dL (9-23) Creatinine 0.99 mg/dL (0.550-1.02) Glomerular Filtration Rate Calc 71 mL/min (>90) BUN/Creatinine Ratio 9.1 (10.0-20.0) Serum Glucose 94 mg/dL (74-106) Calcium Level 9.0 mg/dL (8.7-10.4) Magnesium Level 1.9 mg/dL (1.6-2.6) Total Bilirubin 0.7 mg/dL (0.2-1.0) Aspartate Amino Transferase (AST) 175 U/L (13-40) Alanine Aminotransferase (ALT) 93 U/L (7-40) Alkaline Phosphatase 92 U/L (46-116) Total Protein 7.2 g/dL (5.7-8.2) Albumin 3.7 g/dL (3.2-4.8) Urine Color Yellow (Yellow) Urine Clarity Turbid (Clear) Urine pH 5.0 (5.0-9.0) Urine Specific [address] 1.012 (1.001-1.035) Urine Protein Negative (Negative) Urine Ketones Negative (Negative) Urine Blood Trace /uL (Negative) Urine Nitrite Negative (Negative) Urine Bilirubin Negative (Negative) Urine Urobilinogen Normal mg/dL (Negative) Urine Leukocyte Esterase 3+ /uL (Negative) Urine RBC 3 /hpf (0 - 4) Urine WBC Clumps Present /hpf (None Seen) Urine Microscopic WBC 138 /HPF (0-5) Urine Squamous Epithelial Cells Few /hpf (<5) Urine Bacteria None seen /hpf (None Seen) Urine Yeast (Budding) Occasional /hpf (None Urine Glucose Normal mg/dL (Normal) White Blood Count 5.0 10^3/uL (4.4-10.8) Red Blood Count 3.72 10^6/uL (4.0-5.20) Hemoglobin 12.6 g/dL (12.2-16.2) Hematocrit 37.2 % (36.0-46.0) Mean Corpuscular Volume 100.0 fL (80.0-100.0) Mean Corpuscular Hemoglobin 33.9 pg (28.0-32.0) Mean Corpuscular Hemoglobin Concent 33.9 g/dL (32.0-36.0) Red Cell Distribution Width 14.9 % (11.8-14.3) Platelet Count 235 10^3/uL (140-450) Mean Platelet Volume 7.9 fL (6.9-10.8) Neutrophils (%) (Auto) 59.8 % (37.0-80.0) Lymphocytes (%) (Auto) 22.9 % (10.0-50.0) Monocytes (%) (Auto) 10.6 % (0.0-12.0) Eosinophils (%) (Auto) 5.3 % (0.0-7.0) Basophils (%) (Auto) 1.4 % (0.0-2.0) Neutrophils # (Auto) 3.0 10 ^3/uL (1.6-8.6) Lymphocytes # (Auto) 1.2 10 ^3/uL (0.4-5.4) Monocytes # (Auto) 0.5 10 ^3/uL (0-1.3) Eosinophils # (Auto) 0.3 10 ^3/uL (0-0.8) Basophils # (Auto) 0.1 10 ^3/uL (0-0.2) Nucleated Red Blood Cells 0.1 % Prothrombin Time 10.5 sec (9.3-11.8) Prothrombin Time INR 0.99 (0.9-1.15) Activated Partial Thromboplast Time 23.9 SEC (24.5-34.5) Other Laboratory Tests 07/20/25 05:41 07/19/25 04:48 Brief Hx & Hospital Course: see dictated note Condition at Discharge: Fair Final Diagnosis/Problems List lap acosta Discharge Disposition: Home Discharge Instruct/Medications Diet: Cardiac 2g Na,low cholest Activity: No Restrictions, As Tolerated Follow Up/Referral: schedule appt with dr Lopez in 1 wk Medications: resume home meds script to pharmacy Scheduled Aspirin (Aspirin Low Dose), 1 TAB PO DAILY, (Reported) Atorvastatin Calcium (Atorvastatin Calcium), 1 TAB PO HS, (Reported) Carvedilol (Carvedilol), 6.25 MG PO BID, (Reported) Ferrous Sulfate (Ferrous Sulfate), 1 TAB PO TID, (Reported) Furosemide (Furosemide), 1 TAB PO BID, (Reported) Lisinopril (Lisinopril), 5 MG PO DAILY, (Reported) Mesalamine (Mesalamine Dr), 1 TAB PO TID, (Reported) Potassium Chloride (Potassium Chloride ER), 1 TAB PO TID, (Reported) Ranolazine (Ranexa), 500 MG PO BID Sacubitril-Valsartan (Entresto 24-26 mg), 1 TAB PO BID, (Reported) Senna (Senna-Time), 2 TAB PO QHSP, (Reported) Scheduled PRN Ibuprofen Micronized (Ibuprofen), 600 MG PO Q6HPRN PRN Discharge Statement: "Patient was advised to return to the ER or call 911 if any headaches, dizziness, shortness of breath, chest pain, abdominal pain, bleeding, fevers, or worsening of medical condition. Patient was counseled about treatment plan, medications, possible side effects, patientverbalized understanding. All questions were answered to the best of my ability. This discharge took greater then 30 minutes in planning, reviewing documentation, counseling the patient, and discussing with other team members." ASSESSMENT ASSESSMENT Assessment yarely shane Date of Service: Jul 20, 2025 Billing Provider: JULIANA PATEL MD Common Visit Codes: 74957-MOD/OBS DISCH DAY >30min JULIANA PATEL MD Jul 20, 2025 10:28
[2025-07-20] MEDS ORDERED: HYDR1TAB97 PO (10:29)
[2025-07-20] MEDS ORDERED: CEFU500T43 PO (10:29)
[2025-07-20 11:28] VITALS: BP 119/86; PULSE 68; RESP 17; TEMP 97.9; O2SAT 97
--- NOTE | 2025-07-20 12:46 | DVHDS ---
DATE OF DISCHARGE: 07/20/2025 The patient is a 49-year-old lady who was admitted after she underwent surgery for cholelithiasis and chronic cholecystitis. The patient has history of chronic systolic heart failure, previous AICD, hypertension, dilated cardiomyopathy, and kidney stones. HOSPITAL COURSE: The patient did well postoperatively. The patient now has been ambulating and tolerating oral diet. The patient has had bowel activity. She will be discharged home to be on [place] p.r.n. for pain and cefuroxime 500 mg b.i.d. for seven days. The patient did have a urinary tract infection. She will follow up with her primary as well as Dr. Lopez. FINAL DIAGNOSES: * Chronic systolic heart failure. * UTI. * Hypertension. * History of renal stones. * Morbid obesity. * Status post laparoscopic cholecystectomy for cholelithiasis and chronic cholecystitis. Time spent in discharge planning and review of plan with the patient and nursing was 38 minutes. MD FILEMON Varner/MARIAM TID: [id number] RECEIPT: [id number]
--- NOTE | 2025-07-21 00:01 | DVHPN2 ---
Progress Note - Dictate Date Seen: Jul 20, 2025 Medical Necessity Reason Pt with a Central, PICC or Fol: No Subjective Patient was seen and evaluated in follow up. Patient has no new complaints at this time. Patient denies any cardiac symptoms. Patient is cardiac stable for discharge. Telemetry reviewed. vital signs Vital Sign Date Time Temp Pulse Resp B/P (MAP) Pulse Ox O2 Delivery O2 Flow Rate FiO2 07/20/25 11:28 97.9 68 17 97 07/20/25 10:18 119/86 07/19/25 20:00 Nasal Cannula* 2 28 Total Intake and Output 07/19/25 07/19/25 07/20/25 15:00 23:00 07:00 Intake Total 50 ml 1850 ml 515 ml Balance 50 ml 1850 ml 515 ml medications Current Medications Medications Dose Ordered Sig/Ilana Route Start Time Stop Time Status Last Admin Dose Admin Metoclopramide HCl 10 mg ONCE PRN IV 07/18/25 08:30 07/18/25 08:31 Cancel Hydromorphone HCl 1 mg Q3HPRN PRN IV 07/18/25 11:00 07/19/25 05:24 1 MG Levofloxacin/ Dextrose 100 ml @ 100 mls/hr DAILY IV 07/19/25 10:00 Cancel Nitroglycerin 0.4 mg Q5MINP PRN SL 07/18/25 11:45 Morphine Sulfate 2 mg Q30M PRN IV 07/18/25 11:45 Carvedilol 3.125 mg Q12HR PO 07/18/25 22:00 07/20/25 10:18 3.125 MG Furosemide 40 mg DAILY PO 07/19/25 10:00 07/20/25 10:17 40 MG Potassium Chloride 20 meq DAILY PO 07/19/25 10:00 07/20/25 10:17 20 MEQ Mesalamine 800 mg TID PO 07/18/25 14:00 07/20/25 05:49 800 MG Acetaminophen/ Hydrocodone Bitart 1 tab Q6HPRN PRN PO 07/18/25 12:00 07/20/25 10:43 1 TAB Ranolazine 500 mg BID PO 07/18/25 22:00 07/20/25 10:17 500 MG Lisinopril 5 mg DAILY PO 07/19/25 10:00 07/20/25 10:18 5 MG Acetaminophen 650 mg Q6HP PRN PO 07/18/25 12:00 Ceftriaxone Sodium 50 ml @ 100 mls/hr DAILY@09 IV 07/19/25 09:00 07/20/25 10:17 100 MLS/HR Metoclopramide HCl 10 mg ONCE PRN IV 07/18/25 12:30 07/18/25 12:31 Cancel objective GENERAL: Alert and oriented x 3. No acute distress. Morbid obesity. EYES: PERRL, EOMI. Anicteric. HENT: Moist mucous membranes. LUNGS: Clear to auscultation bilaterally. CARDIOVASCULAR: Regular rate and rhythm. ABDOMEN: Soft, non-tender and non-distended. EXTREMITIES: No edema. NEUROLOGIC: No focal neurological deficits. SKIN: Warm, dry. laboratory and microbiology Laboratory Tests 07/20/25 05:41 07/19/25 04:48 Test 07/20/25 05:41 Range/Units Serum Glucose 94 74-106 mg/dL Problem List Cholelithiasis. Chronic cholecystitis. S/P laparoscopic cholecystectomy. Chronic systolic heart failure. Hypertension. History of renal stones. UTI. Morbid obesity. Assessment/Plan Continued all current supportive medical care. [place] for pain management. Coreg. IV antibiotics as ordered. Diuretics with Lasix. Nitro SL. Lisinopril. Additional plan as per the hospital course. Dietary Evaluation Review Recommendations by RD: Dietary education by RD Comments: 1) Continue cardiac diet 2) Refer to outpatient RD for weight management 3) Follow-up with gastroenterology and cardiology 4) Continue to monitor I&O, labs, and skin integrity Expected Outcomes/Goals: 1) appetite and labs to improve 2) gradual wt loss 3) f/u in 3-5 days Plan discussed with: Patient STEPHANY GOTTI MD Jul 20, 2025 12:49
== END 2025-07-20 14:10 | disposition home or self-care (01) | DRG 263 ==
LOC: SUR 09:06 → OVERFLOW 11:34 → TELE-EAST 16:54
PROVIDERS: ADMIT Internal Medicine; ATTEND Internal Medicine
PROC: 0FT44ZZ Resection of Gallbladder, Percutaneous Endoscopic Approach (ICD-10-PCS; principal; 2025-07-18 09:57)
DX: K80.10 Calculus of gallbladder with chronic cholecystitis without obstruction (principal); I11.0 Hypertensive heart disease with heart failure; I50.22 Chronic systolic (congestive) heart failure; I42.0 Dilated cardiomyopathy; J96.10 Chronic respiratory failure, unspecified whether with hypoxia or hypercapnia; N39.0 Urinary tract infection, site not specified; E66.01 Morbid (severe) obesity due to excess calories; Z95.810 Presence of automatic (implantable) cardiac defibrillator; Z88.0 Allergy status to penicillin; Z87.442 Personal history of urinary calculi; Z83.3 Family history of diabetes mellitus; Z82.49 Family history of ischemic heart disease and other diseases of the circulatory system; Z82.0 Family history of epilepsy and other diseases of the nervous system; Z79.82 Long term (current) use of aspirin
CPT/HCPCS: 36415; 71045; 80048; 80053; 81001; 83735; 85025; 85610; 85730; 86850; 86900; 86901; 87086; 93005; G0378; J1956; J2250; J2405; J3490

== ENCOUNTER 2025-09-02 19:33 | Emergency (ER) | payer MEDICAID ==
[~2025-09-02] VITALS: Ht 165.1 cm; Wt 110.0 kg
[~2025-09-02 19:33] MED LIST changes: +CEFU500T43 PO; +HYDR1TAB97 PO; -HYDROmorphone HCL 2 MG/ML VL/or syr IV PRN; -KETOROLAC TROMETH 30 MG/ML 1ML VIAL IV ONE; -METOCLOPRAMIDE HCL 5MG/ml INJ 2ml VIAL IV PRN; -MORPHINE SULFATE 4 MG/ML SYR/VIAL IV PRN
[2025-09-02 19:34] VITALS: BP 104/72; PULSE 95; RESP 18; TEMP 97.6; O2SAT 97
--- NOTE | 2025-09-02 20:16 | ED.PDOC ---
Musculoskeletal HPI Comments 49-year-old female who came to ER for left leg pain. With history of congestive heart failure, states whenever she takes her medications, Entresto and Coreg at the same time, she usually gets syncopal attacks. Patient took this said medications again he days ago, and she passed out, with her body falling over her left leg. [place] her left leg bend beneath her. Patient was able to walk with difficulty after the fall initially. However today, the worsening of left foot, left ankle and left knee pain prompted patient to come to the ER Chief Complaint: Lower Extremity Time Seen by MD: 20:15 Primary Care Provider: UNKNOWN Reviewed Notes: Nurses Notes Allergies: Coded Allergies: Penicillins (Verified Allergy, Unknown, 08/14/21) Home Meds Active Scripts Gabapentin (Once-Daily) (Gabapentin) 300 Mg Tab, 300 MG PO Q6HP PRN, #60 TAB Prov:FLORA ROD MD 09/02/25 Cefuroxime Axetil (Cefuroxime Axetil) 500 Mg Tab, 500 MG PO BID for 7 Days, #14 TAB Prov:JULIANA PATEL MD 07/20/25 Hydrocodone-Acetaminophen (Hydrocodone/Acetaminophen 5-325 mg) 1 Tab Tab, 1 TAB PO TIDP PRN for 6 Days, #18 TAB Prov:JULIANA PATEL MD 07/20/25 Ibuprofen Micronized (Ibuprofen) 600 Mg Tab, 600 MG PO Q6HPRN PRN for 7 Days, #28 TAB Prov:ANISH WOOD RESIDENT 03/12/25 Ranolazine (Ranexa) 500 Mg Tab, 500 MG PO BID for 60 Days, #120 TAB Prov:ZOEY THACKER DIRECTOR TRANSLATIONAL 10/08/22 Reported Medications Ferrous Sulfate (Ferrous Sulfate) 325 Mg Tab, 1 TAB PO TID for 30 Days, #90 03/08/25 Potassium Chloride (Potassium Chloride ER) 10 Meq Tab, 1 TAB PO TID for 90 Days, #270 03/08/25 Aspirin (Aspirin Low Dose) 81 Mg Tab, 1 TAB PO DAILY for 90 Days, #90 03/08/25 Senna (Senna-Time) 8.6 Mg Tab, 2 TAB PO QHSP for 90 Days, #180 03/08/25 Furosemide (Furosemide) 40 Mg Tab, 1 TAB PO BID for 90 Days, #180 03/08/25 Mesalamine (Mesalamine Dr) 800 Mg Tab, 1 TAB PO TID for 30 Days, #90 03/08/25 Sacubitril-Valsartan (Entresto 24-26 mg) 1 Tab Tab, 1 TAB PO BID 10/06/22 Carvedilol (Carvedilol) 6.25 Mg Tab, 6.25 MG PO BID for 30 Days, MG 08/15/21 Lisinopril (Lisinopril) 5 Mg Tab, 5 MG PO DAILY for 30 Days, MG 08/15/21 Atorvastatin Calcium (ATORVASTATIN CALCIUM) 20 Mg Tab, 1 TAB PO HS, #30 TAB 5 Refills 08/15/21 Information Source: Patient Mode of Arrival: Wheelchair Location: Left Extremity Location: Ankle, Foot, Knee Past Medical History PAST MEDICAL HISTORY: CHF, High Lipids, HTN, IN Surgical History: , Pacemaker NEW HOME SALES CONSULTANT History: No Pertinent NEW HOME SALES CONSULTANT History Family History Family History: Reviewed,noncontributory to illness, Family hx of DM, Family hx of heart dannie Social History Smoker: Non-Smoker Alcohol: Occasionally Drugs: Denies Drug Use Lives In: Home Constitutional: denies: chills, diaphoresis, fatigue, fever, malaise, sweats, weakness, others EENTM: denies: blurred vision, double vision, ear bleeding, ear discharge, ear drainage, ear pain, ear ringing, eye pain, eye redness, hearing loss, mouth pain, mouth swelling, nasal discharge, nose bleeding, nose congestion, nose pain, photophobia, tearing, throat pain, throat swelling, voice changes, others Respiratory: denies: cough, hemoptysis, orthopnea, SOB at rest, shortness of breath, SOB with excertion, stridor, wheezing, others Cardiovascular: denies: chest pain, dizzy spells, diaphoresis, Dyspnea on exertion, edema, irregular heart beat, left arm pain, lightheadedness, palpitations, PND, syncope, others Gastrointestinal: denies: abdomen distended, abdominal pain, blood streaked bowels, constipated, diarrhea, dysphagia, difficulty swallowing, hematemesis, melena, nausea, poor appetite, poor fluid intake, rectal bleeding, rectal pain, vomiting, others Genitourinary: denies: abnormal vagina bleeding, burning, dyspareunia, dysuria, flank pain, frequency, hematuria, incontinence, pain, , vagina discharge, urgency, others Neurological: denies: dizziness, fainting, headache, left sided numbness, left sided weakness, numbness, paresthesia, pre-existing deficit, right sided numbness, right sided weakness, seizure, speech problems, tingling, tremors, weakness, others Musculoskeletal: reports: joint pain (Left foot, left ankle, left knee); denies: back pain, gout, joint swelling, muscle pain, muscle stiffness, neck pain, others Integumetry: denies: bruises, change in color, change in hair/nails, dryness, laceration, lesions, lumps, rash, wounds, others Allergic/Immunocompromised: denies: Difficulty Healing, Frequent Infections, H elier, Itching, others Hematologic/Lymphatic: denies: anemia, blood clots, easy bleeding, easy bruising, swollen glands, others Endocrine: denies: excessive hunger, excessive sweating, excessive thirst, excessive urination, flushing, intolerance to cold, intolerance to heat, unexplained weight gain, unexplained weight loss, others Psychiatric: denies: anxiety, bipolar disorder, depression, hopeless, panic disorder, schizophrenia, sleepless, suicidal, others Physical Exam General Appearance: No Apparent Distress, Normal HEENT: Normal ENT Inspection, Pharynx Normal, TMs Normal Neck: Full Range of Motion, Non-Tender, Normal, Normal Inspection Respiratory: Chest Non-Tender, Lungs Clear, No Accessory Muscle Use, No Respiratory Distress, Normal Breath Sounds Cardiovascular: No Edema, No JVD, No Murmur, No Gallop, Normal Peripheral Pulses, Regular Rate/Rhythm Breast Exam: Deferred Gastrointestinal: No Organomegaly, Non Tender, No Pulsatile Mass, Normal Bowel Sounds, Soft Genitalia: Deferred Pelvic: Deferred Rectal: Deferred Extremities: No calf tenderness, Normal capillary refill, Normal inspection, Normal range of motion, Non-tender, No pedal edema Musculoskeletal : Apperance: Normal Neurologic: Alert, general service technician II-XII nml as Tested, No Motor Deficits, Normal Affect, Normal Mood, No Sensory Deficits Cerebellar Function: Normal Reflexes: Normal Skin: Dry, Normal Color, Warm Lymphatic: No Adenopathy Was a procedure done? Was a procedure done?: No Differential Diagnosis EXT Differential Diagnosis: Fracture, Sprain, Strain X-Ray, Labs, Meds, VS Vital Signs Date Time Temp Pulse Resp B/P (MAP) Pulse Ox O2 Delivery O2 Flow Rate FiO2 09/02/25 19:34 97.6 95 18 104/72 97 97.6 Current Medications Medications (Trade) Dose Ordered Sig/Ilana Route Start Time Stop Time Status Last Admin Acetaminophen/ Hydrocodone Bitart ([place] 10/325MG Tab) 1 tab ONCE ONCE PO 09/02/25 21:45 09/02/25 21:46 DC 09/02/25 21:53 XY L FOOT 3 VIEW XRAY COMPARISON: None INDICATION: pain fall injury FINDINGS/IMPRESSION: No acute fracture or dislocation. : XY L ANKLE 3 VIEW HISTORY: Pain. Fall injury. COMPARISON: None available. TECHNIQUE: Three views of the left ankle were performed. FINDINGS: No acute fracture or dislocation are identified about the left ankle. The mortise is intact. Soft tissues unremarkable. IMPRESSION: No acute fracture or dislocation. EDURE(s): LKNE3 - L KNEE 3V XRAY REASON: pain fall injury ORDER NUMBER(s): [id number], ACCESSION NUMBER(s): [id number] CLINICAL INDICATION: pain fall injury TECHNIQUE: 3 radiographic views of the left knee were obtained. COMPARISON: None FINDINGS/IMPRESSION: No fracture or dislocation. There is narrowing of the medial compartment of the left knee suggesting arthritic changes. Time of 1ST Reevaluation: 20:12 Reevaluation 1ST: Unchanged Patient Education/Counseling: Diagnosis, Treatment Family Education/Counseling: No Family Present Departure 1 Departure Time of Disposition: 22:00 Impression: Primary Impression: Sprain of left foot Additional Impressions: Left ankle sprain Contusion of left lower leg, initial encounter Disposition: HOME / SELF CARE / HOMELESS Condition: Stable e-Prescriptions Gabapentin (Once-Daily) (Gabapentin) 300 Mg Tab 300 MG PO Q6HP PRN, #60 TAB Prov: FLORA ROD MD 09/02/25 Discharged With: Self Critical Care Note Critical Care Time?: No Stability Stability form required: No Heart Score Heart Score: Heart Score Response (Comments) Value History N/A 0 EKG N/A 0 Age N/A 0 Risk Factors N/A 0 Troponin N/A 0 Total 0 I personally scribed for FLORA ROD MD ([email or web address]) on 09/02/25 at 20:16. Electronically submitted by Armond Oh ([email or web address]). I personally scribed for FLORA ROD MD ([email or web address]) on 09/02/25 at 21:05. Electronically submitted by Armond Oh ([email or web address]). FLORA ROD MD Sep 02, 2025 20:16
--- NOTE | 2025-09-02 20:48 | DVH ---
XY L FOOT 3 VIEW XRAY COMPARISON: None INDICATION: pain fall injury FINDINGS/IMPRESSION: No acute fracture or dislocation.
--- NOTE | 2025-09-02 20:49 | DVH ---
CLINICAL INDICATION: pain fall injury TECHNIQUE: 3 radiographic views of the left knee were obtained. COMPARISON: None FINDINGS/IMPRESSION: No fracture or dislocation. There is narrowing of the medial compartment of the left knee suggesting arthritic changes.
--- NOTE | 2025-09-02 20:50 | DVH ---
EXAM: XY L ANKLE 3 VIEW HISTORY: Pain. Fall injury. COMPARISON: None available. TECHNIQUE: Three views of the left ankle were performed. FINDINGS: No acute fracture or dislocation are identified about the left ankle. The mortise is intact. Soft tissues unremarkable. IMPRESSION: No acute fracture or dislocation.
[2025-09-02] MEDS ORDERED: GABA300T4 PO (21:08)
[2025-09-02] MEDS: HYDROcodone-ACET 10/325MG TAB PO ONE (21:53)
== END 2025-09-02 22:15 | disposition home or self-care (01) ==
LOC: ER 19:33
DX: S93.602A Unspecified sprain of left foot, initial encounter (principal); S93.402A Sprain of unspecified ligament of left ankle, initial encounter; S80.12XA Contusion of left lower leg, initial encounter; E78.5 Hyperlipidemia, unspecified; I11.0 Hypertensive heart disease with heart failure; I50.9 Heart failure, unspecified; F10.90 Alcohol use, unspecified, uncomplicated; Z79.899 Other long term (current) drug therapy; Z95.0 Presence of cardiac pacemaker; Z88.0 Allergy status to penicillin; Z79.82 Long term (current) use of aspirin; X58.XXXA Exposure to other specified factors, initial encounter; Y93.89 Activity, other specified; Y92.89 Other specified places as the place of occurrence of the external cause; Y99.8 Other external cause status
CPT/HCPCS: 73562; 73610; 73630